=== PATIENT | male | born 1945 | race Caucasian/White ===

== ENCOUNTER 2017-03-05 10:00 | Inpatient (IN) | payer MEDICARE, OTHER ==
[2017-04-30] MEDS ORDERED: ceFAZolin 2 GM in Premix Bag 1 BAG IV SCH ×2 (06:00→17:00)
[2017-04-30] MEDS ORDERED: Acetaminophen 500 MG Tab PO SCH (06:00)
[2017-04-30] MEDS ORDERED: Scopolamine 1.5 MG Transdermal Patch TRDERM SCH (06:00)
[2017-04-30] MEDS ORDERED: oxyCODONE ER 20 MG TAB.ER PO SCH (06:00)
[2017-04-30] MEDS ORDERED: Famotidine 20 MG/2 ML SDV IVPUSH SCH (06:00)
[2017-04-30] MEDS ORDERED: Ropivacaine 49.25 ML, Ketorolac 30 MG, EPINEPHrine 0.5 MG, cloNIDine 80 MCG in Sodium C... INJECT ONE (06:00)
[2017-04-30] MEDS ORDERED: Ketorolac 30 MG/ML SDV IVPUSH SCH (06:00)
[2017-04-30] MEDS: Lactated Ringers 1,000 ML IV SCH ×2 (07:08→15:27)
[2017-04-30] MEDS ORDERED: Midazolam 1 MG/ML 2 ML SDV ONE (07:23)
[2017-04-30] MEDS ORDERED: Propofol 200 MG/20 ML SDV ONE (07:23)
[2017-04-30] MEDS ORDERED: Ondansetron 4 MG/2 ML SDV ONE (07:23)
[2017-04-30] MEDS ORDERED: fentaNYL 100 MCG/2 ML SDV ONE (07:23)
[2017-04-30] MEDS ORDERED: Lidocaine 2% 5 ML SDV ONE (07:23)
[2017-04-30] MEDS ORDERED: ePHEDrine 50 MG/ML SDV ONE (07:24)
--- NOTE | 2017-04-30 08:00 | PCM.PREANE ---
Preanesthetic Assessment - Anesthesia/Transfusion/Family Hx Anesthesia History: Prior Anesthesia Without Reaction Transfusion History: No Prior Transfusion(s) - Review of Systems General: Other (obesity/gastric bypass 2007) Pulmonary: Other (former smoker, COPD) Cardiovascular: No Symptoms, Other (cath essentially normal function , EF50-60%) Gastrointestinal: Other (s/p bypass, GERD on meds daily) Neurological: Gait Disturbance (due to knee) Other: Reports: Diabetes (on oral agents) - Physical Assessment NPO Status Date: 04/29/17 NPO Status Time: 22:00 (took meds here PO) Temperature: 97.2 F Vital Signs: Last Vital Signs Temp 97.2 F 04/30/17 07:11 Pulse Resp BP Pulse Ox Height: 5 ft 8.25 in Weight: 332 lb ASA Class: 3 Mental Status: Alert & Oriented x3 Airway Class: Mallampati = 3 Dentition: Reports: Normal Dentition Thyro-Mental Finger Breadths: 3 Mouth Opening Finger Breadths: 3 (narrow mouth, short full neck) ROM/Head Extension: Limited/Partial Lungs: Clear to Auscultation, Normal Respiratory Effort Cardiovascular: Regular Rate, Regular Rhythm, No Murmurs - Allergies Allergies/Adverse Reactions: Allergies Allergy/AdvReac Type Severity Reaction Status Date / Time No Known Allergies Allergy Verified 10/24/13 11:33 - Blood Blood Available: Yes Product(s) Available: PRBC (T and S) - Anesthesia Plan Pre-Op Medication Ordered: Other (per surgeon protocol) Beta Nihkil: Metoprolol (AM dose) - Acknowledgements Anesthesia Type Planned: General Anesthesia (OET porbably best), Spinal Pt an Appropriate Candidate for the Planned Anesthesia: Yes Alternatives and Risks of Anesthesia Discussed w Pt/Guardian: Yes Pt/Guardian Understands and Agrees with Anesthesia Plan: Yes PreAnesthesia Questionnaire HEENT History: Reports: Allergic Rhinitis, Other (See Below) Other HEENT History: wears glasses, maria c hearing aids Cardiovascular History: Reports: High Cholesterol, Hypertension Respiratory History: Reports: Sleep Apnea Other Respiratory History: uses CPAP Gastrointestinal History: Reports: GERD Genitourinary History: Reports: BPH Musculoskeletal History: Reports: Arthritis Neurological History: Reports: Parkinson's Endocrine/Metabolic History: Reports: Diabetes, Type II, Obesity/BMI 30+ - Past Surgical History Head Surgeries/Procedures: Reports: None HEENT Surgical History: Reports: Cataract Surgery Cardiovascular Surgical History: Reports: Other (See Below) Other Cardiovascular Surgeries/Procedures: angiogram (no stents) GI Surgical History: Reports: Bariatric Procedure, Colonoscopy Other GI Surgeries/Procedures: lap band surgery, removal of lap band Neurological Surgical History: Reports: Lumbar Spine Other Neurological Surgeries/Procedures: hx lower back surgery Musculoskeletal Surgical History: Reports: Knee Replacement Other Musculoskeletal Surgeries/Procedures:: hx left TKA - SUBSTANCE USE Smoking Status *Q: Former Smoker Tobacco Use Within Last Twelve Months: No Second Hand Smoke Exposure: Yes Days Per Week of Alcohol Use: 0 Number of Drinks Per Day: 0 Total Drinks Per Week: 0 Recreational Drug Use History: No - HOME MEDS Home Medications: Home Meds Telmisartan 40 mg PO ACBRK 10/24/13 [History] Finasteride 5 mg PO DAILY 04/26/17 [History] Fluticasone Propionate [Flonase Allergy Relief] 1 spray NASBOTH ASDIRECTED PRN 04/26/17 [History] Furosemide 20 mg PO BID 04/26/17 [History] Glimepiride [Amaryl] 4 mg PO DAILY 04/26/17 [History] Insulin Glarg,Human.Rec.Analog [LantUS Solostar] 50 units SUBCUT BEDTIME [History] Lansoprazole [Prevacid] 30 mg PO DAILY PRN 04/26/17 [History] Potassium Chloride 10 meq PO DAILY 04/26/17 [History] Pramipexole Di-HCl [Pramipexole Dihydrochloride] 0.25 mg PO ASDIRECTED 04/26/17 [History] Tamsulosin HCl [Flomax] 0.4 mg PO DAILY 04/26/17 [History] metFORMIN HCl [Metformin HCl] 2 tab PO ACBREAKFAST 04/26/17 [History] metFORMIN HCl [Metformin HCl] 3 tab PO BEDTIME 04/26/17 [History] - CURRENT (IN HOUSE) MEDS Current Meds: Current Medications Acetaminophen (Tylenol Extra Strength) 1,000 mg PO ONARRIVE LIBIA Last Admin: 04/30/17 07:11 Dose: 1,000 mg Famotidine (Pepcid) 40 mg IVPUSH ONARRIVE LIBIA Last Admin: 04/30/17 07:09 Dose: 40 mg Cefazolin Sodium/Dextrose 2 gm (/ Premix) 50 mls @ 100 mls/hr IV ONCALL LIBIA Lactated Ringer's (Ringers, Lactated) 1,000 mls @ 100 mls/hr IV ASDIRECTED LIBIA Last Admin: 04/30/17 07:08 Dose: 100 mls/hr Ketorolac Tromethamine (Toradol) 30 mg IVPUSH ONARRIVE LIBIA Last Admin: 04/30/17 07:10 Dose: 30 mg Oxycodone HCl (Oxycontin) 20 mg PO ONARRIVE LIBIA Last Admin: 04/30/17 07:11 Dose: 20 mg Scopolamine (Transderm-Scop) 1.5 mg TRDERM ONARRIVE [facility] Last Admin: 04/30/17 07:11 Dose: 1.5 mg Tranexamic Acid (Cyklokapron) 4,000 mg IV SEECOMMENT [facility] Discontinued Medications Ephedrine Sulfate (Ephedrine Sulfate) Confirm Administered Dose 50 mg .ROUTE .STK-MED ONE Stop: 04/30/17 07:25 Fentanyl (Sublimaze) Confirm Administered Dose 200 mcg .ROUTE .STK-MED ONE Stop: 04/30/17 07:24 Ropivacaine 49.25 ml/Ketorolac Tromethamine 30 mg/Epinephrine HCl 0.5 mg/ Clonidine HCl 80 mcg/ Sodium Chloride 100 mls @ 50 mls/min INJECT ONETIME ONE Stop: 04/30/17 06:01 Lidocaine (Xylocaine-Mpf 2%) Confirm Administered Dose 10 ml .ROUTE .STK-MED ONE Stop: 04/30/17 07:24 Midazolam HCl (Versed 1 Mg/Ml) Confirm Administered Dose 2 mg .ROUTE .STK-MED ONE Stop: 04/30/17 07:24 Ondansetron HCl (Zofran) Confirm Administered Dose 4 mg .ROUTE .STK-MED ONE Stop: 04/30/17 07:24 Propofol (Diprivan 20 Ml) Confirm Administered Dose 400 mg .ROUTE .STK-MED ONE Stop: 04/30/17 07:24 Tranexamic Acid (Cyklokapron) Confirm Administered Dose 4,000 mg .ROUTE .STK- MED ONE Stop: 04/30/17 07:16
[2017-04-30] MEDS ORDERED: fentaNYL 100 MCG/2 ML SDV IVPUSH PRN (08:59)
[2017-04-30] MEDS ORDERED: Morphine 10 MG/ML Syringe IVPUSH PRN (09:35)
[2017-04-30] MEDS ORDERED: Ondansetron 4 MG/2 ML SDV IV PRN (09:35)
[2017-04-30] MEDS ORDERED: Aluminum Hydroxide/Magnesium Hydroxide/Simethicone Susp 30 ML Cup PO PRN (09:35)
[2017-04-30] MEDS ORDERED: Bisacodyl 10 MG Supp RECTAL PRN (09:35)
[2017-04-30] MEDS ORDERED: diphenhydrAMINE 25 MG Cap PO PRN (09:35)
--- NOTE | 2017-04-30 09:52 | PCM.OPNOTE ---
- General Post-Op/Procedure Note Date of Surgery/Procedure: 04/30/17 Operative Procedure(s): R TKA Post-Op Diagnosis: DJD R knee Anesthesia Technique: General ET Tube, Spinal Primary Surgeon: Vane Benjamin Wastewater Manager: Roosevelt Simmons Wastewater Manager: Aure Pearson EBAiram in mLs: 50 Condition: Good Free Text/Narrative:: tt=44 min #[id number] Intake & Output 04/29/17 04/30/17 04/30/17 22:59 06:59 14:59 Output Total 50 Balance -50
[2017-04-30] MEDS ORDERED: Fluticasone Propionate Nasal Spray 16 GM Bottle NASBOTH PRN (10:46)
[2017-04-30 11:40] LABS: CHLORIDE,CL 105 mmol/L (98-110); SODIUM,NA 138 mmol/L (136-146)
--- NOTE | 2017-04-30 11:42 | PCM.POSTAN ---
POST ANESTHESIA ASSESSMENT - MENTAL STATUS Mental Status: Alert, Oriented Free Text/Narrative:: Sleepy but stable with Oxygen via mask and SaO2 at 97%. - RESPIRATORY Respiratory Status: Respiratory Rate WNL, Airway Patent, O2 Saturation Stable - CARDIOVASCULAR CV Status: Pulse Rate WNL, Blood Pressure Stable - GASTROINTESTINAL GI Status: No Symptoms - POST OP HYDRATION Hydration Status: Adequate & Stable
--- NOTE | 2017-04-30 11:59 | PCM.CONS ---
H&P History of Present Illness - General Date of Service: 04/30/17 Admit Problem/Dx: Admission Diagnosis/Problem Admission Diagnosis/Problem Replacement of total knee joint Source of Information: Patient History Limitations: Reports: No Limitations - History of Present Illness Initial Comments - Free Text/Narative: This 71 year old male with pmh of HTN, DM type 2, CAD, obesity, hx of cardiomyopathy presented to for R TKA today with Dr. Benjamin. Hospitalist service consulted for medical management of comorbidities. He has arrived to floor from PACU. He is alert and oriented feeling ok currently. Denies any pain, no chest pain, SOB or abdominal pain. Starting to get some feeling to R lower limb and toes. at bedside. He had stress test and ECHo 03/2018 prior to cardiac clearance for surgery, coronary angiogram revealed non-occlusive CAD and ECHO revealed EF 55-60% with mild enlarged aorta. - Related Data Allergies/Adverse Reactions: Allergies Allergy/AdvReac Type Severity Reaction Status Date / Time No Known Allergies Allergy Verified 10/24/13 11:33 Home Medications: Home Meds Telmisartan 40 mg PO ACBRK 10/24/13 [History] Finasteride 5 mg PO DAILY 04/26/17 [History] Fluticasone Propionate [Flonase Allergy Relief] 1 spray NASBOTH ASDIRECTED PRN 04/26/17 [History] Furosemide 20 mg PO BID 04/26/17 [History] Glimepiride [Amaryl] 4 mg PO DAILY 04/26/17 [History] Insulin Glarg,Human.Rec.Analog [LantUS Solostar] 50 units SUBCUT BEDTIME [History] Lansoprazole [Prevacid] 30 mg PO DAILY PRN 04/26/17 [History] Potassium Chloride 10 meq PO DAILY 04/26/17 [History] Pramipexole Di-HCl [Pramipexole Dihydrochloride] 0.25 mg PO QAM 04/26/17 [ History] Tamsulosin HCl [Flomax] 0.4 mg PO DAILY 04/26/17 [History] Metoprolol Tartrate [Metoprolol Tartrate] 12.5 mg PO BID 04/30/17 [History] Pramipexole [Mirapex] 0.5 mg PO BEDTIME 04/30/17 [History] metFORMIN HCl [Metformin HCl ER] 1,000 mg PO QAM 04/30/17 [History] metFORMIN HCl [Metformin HCl ER] 1,500 mg PO BEDTIME 04/30/17 [History] Past Medical History HEENT History: Reports: Allergic Rhinitis, Other (See Below) Other HEENT History: wears glasses, maria c hearing aids Cardiovascular History: Reports: CAD (non-occlusive), Cardiomyopathy (hx 2008 EF 42%), High Cholesterol, Hypertension. Denies: Afib, Blood Clots/VTE/DVT, OK Respiratory History: Reports: Sleep Apnea Other Respiratory History: uses CPAP Gastrointestinal History: Reports: GERD Genitourinary History: Reports: BPH Musculoskeletal History: Reports: Arthritis Neurological History: Reports: Parkinson's Endocrine/Metabolic History: Reports: Diabetes, Type II, Obesity/BMI 30+ - Past Surgical History Head Surgeries/Procedures: Reports: None HEENT Surgical History: Reports: Cataract Surgery Cardiovascular Surgical History: Reports: Other (See Below) Other Cardiovascular Surgeries/Procedures: angiogram (no stents) GI Surgical History: Reports: Bariatric Procedure, Colonoscopy Other GI Surgeries/Procedures: lap band surgery, removal of lap band Neurological Surgical History: Reports: Lumbar Spine Other Neurological Surgeries/Procedures: hx lower back surgery Musculoskeletal Surgical History: Reports: Knee Replacement Other Musculoskeletal Surgeries/Procedures:: hx left TKA Social & Family History - Tobacco Use Smoking Status *Q: Former Smoker Used Tobacco, but Quit: Yes Month Tobacco Last Used: quit smoking over 8 yrs ago Second Hand Smoke Exposure: Yes - Alcohol Use Days Per Week of Alcohol Use: 0 Number of Drinks Per Day: 0 Total Drinks Per Week: 0 - Recreational Drug Use Recreational Drug Use: No Drug Use in Last 12 Months: No - Living Situation & Occupation Living situation: Reports: Occupation: Retired H&P Review of Systems - Review of Systems: Review Of Systems: See Below General: Reports: No Symptoms. Denies: Fever, Chills HEENT: Reports: No Symptoms. Denies: Headaches, Hearing Changes, Sinus Congestion, Sore Throat Pulmonary: Reports: Wheezing. Denies: Shortness of Breath, Cough, Sputum Cardiovascular: Reports: No Symptoms. Denies: Chest Pain, Palpitations, Edema Gastrointestinal: Reports: No Symptoms. Denies: Abdominal Pain, Black Stool, Bloody Stool, Nausea, Vomiting Genitourinary: Reports: No Symptoms. Denies: Dysuria, Frequency, Burning, Pain Musculoskeletal: Reports: No Symptoms Skin: Reports: No Symptoms Neurological: Reports: No Symptoms Hematologic/Lymphatic: Reports: No Symptoms Immunologic: Reports: No Symptoms Exam - Exam Exam: See Below - Vital Signs Vital Signs: Last Vital Signs Temp 97.2 F 04/30/17 08:00 Pulse 77 04/30/17 10:50 Resp 16 04/30/17 10:50 BP 131/72 04/30/17 10:50 Pulse Ox 94 L 04/30/17 10:50 Weight: 150.593 kg - Exam Quality Assessment: Supplemental Oxygen, Urinary Catheter, DVT Prophylaxis General: Alert, Oriented, Cooperative HEENT: Conjunctiva Clear, Mucosa Moist & [place], Nares Patent, Pupils Equal, Pupils Reactive Neck: Supple Lungs: Normal Respiratory Effort, Wheezing (exp wheeze heard throughout.) Cardiovascular: Regular Rate, Regular Rhythm, Normal S1, Normal S2 Extremities: Normal Inspection, Normal Range of Motion, Non-Tender, No Pedal Edema, Normal Capillary Refill Skin: Incision (R TKA dressing C/D/I) Neurological: Cranial Nerves Intact Neuro Extensive - Mental Status: Alert, Oriented x3, Normal Mood/Affect - Patient Data Lab Results Last 24 hrs: Laboratory Results - last 24 hr 04/30/17 04/30/17 04/30/17 Range/Units 07:07 11:05 11:05 WBC 11.09 H (4.0-11.0) K/uL RBC 4.22 L (4.50-5.90) M/uL Hgb 12.6 L (13.0-17.0) g/dL Hct 38.0 (38.0-50.0) % MCV 90.0 (80.0-98.0) fL MCH 29.9 (27.0-32.0) pg MCHC 33.2 (31.0-37.0) g/dL RDW Std Deviation 45.4 (28.0-62.0) fl RDW Coeff of Maria Dolores 14 (11.0-15.0) % Plt Count 248 (150-400) K/uL MPV 9.30 (7.40-12.00) fL Neut % (Auto) 73.2 (48.0-80.0) % Lymph % (Auto) 20.0 (16.0-40.0) % [place] % (Auto) 5.5 (0.0-15.0) % Eos % (Auto) 0.9 (0.0-7.0) % Baso % (Auto) 0.4 (0.0-1.5) % Neut # (Auto) 8.1 H (1.4-5.7) K/uL Lymph # (Auto) 2.2 (0.6-2.4) K/uL [place] # (Auto) 0.6 (0.0-0.8) K/uL Eos # (Auto) 0.1 (0.0-0.7) K/uL Baso # (Auto) 0.0 (0.0-0.1) K/uL Nucleated RBC % 0.0 /100WBC Nucleated RBCs # 0 K/uL Sodium 138 (136-146) mmol/L Potassium 3.9 (3.5-5.1) mmol/L Chloride 105 (98-110) mmol/L Carbon Dioxide 23 (21-31) mmol/L BUN 18 (6.0-23.0) mg/dL Creatinine 0.9 (0.6-1.5) mg/dL Est Cr Clr Drug Dosing 72.38 mL/min Estimated GFR (MDRD) > 60.0 ml/min Glucose 145 H (60-110) mg/dL Calcium 8.4 L (8.8-10.8) mg/dL Total Bilirubin 0.2 (0.1-1.5) mg/dL AST 15 (5-40) IU/L ALT 22 (8-54) IU/L Alkaline Phosphatase 93 (40-150) Total Protein 6.1 (6.0-8.0) g/dL Albumin 3.4 (3.4-4.8) g/dL Globulin 2.7 (2.0-3.5) g/dL Albumin/Globulin Ratio 1.3 (1.3-2.8) Blood Type B POSITIVE Antibody Screen NEGATIVE Result Diagrams: 04/30/17 11:05 04/30/17 11:05 Consult PN Assessment/Plan Procedures: Procedures CARDIOVASCULAR STRESS TEST (02/21/17) COLONOSCOPY AND BIOPSY (10/27/13) COLONOSCOPY W/LESION REMOVAL (10/27/13) HT MUSCLE IMAGE SPECT SING (02/26/17) MRI JNT OF LWR EXTRE W/O DYE (01/23/17) OFFICE/OUTPATIENT VISIT EST (11/11/13) TTE W/DOPPLER COMPLETE (02/27/17) X-RAY EXAM KNEE 4 OR MORE (01/18/17) (1) S/P total knee replacement SNOMED Code(s): 3136286711049, 6905942449330 Code(s): Z96.659 - PRESENCE OF UNSPECIFIED ARTIFICIAL KNEE JOINT Current Visit: Yes Qualifiers: Laterality: right Qualified Code(s): Z96.651 - Presence of right artificial knee joint (2) DM type 2 (diabetes mellitus, type 2) SNOMED Code(s): 10301426 Code(s): E11.9 - TYPE 2 DIABETES MELLITUS WITHOUT COMPLICATIONS Current Visit: Yes Qualifiers: Diabetes mellitus complication status: without complication Diabetes mellitus predatory animal exterminator insulin use: with predatory animal exterminator use Qualified Code(s): E11.9 - Type 2 diabetes mellitus without complications; Z79.4 - alf (current) use of insulin; Z79.4 - alf (current) use of insulin; Z79.4 - alf ( current) use of insulin; Z79.4 - alf (current) use of insulin (3) CAD (coronary artery disease) SNOMED Code(s): 22135925 Code(s): I25.10 - ATHSCL HEART DISEASE OF [place] CORONARY ARTERY W/O ANG PCTRS Current Visit: Yes Qualifiers: Coronary Disease-Associated Artery/Lesion type: [place] artery [place] vs. transplanted heart: [place] heart Associated angina: without angina Qualified Code(s): I25.10 - Atherosclerotic heart disease of [place] coronary artery without angina pectoris (4) HTN (hypertension) SNOMED Code(s): 82519063 Code(s): I10 - ESSENTIAL (PRIMARY) HYPERTENSION Current Visit: Yes Qualifiers: Hypertension type: essential hypertension Qualified Code(s): I10 - Essential (primary) hypertension (5) Obesity SNOMED Code(s): 929166326 Code(s): E66.9 - OBESITY, UNSPECIFIED Current Visit: Yes Qualifiers: Obesity type: due to excess calories Obesity classification: adult class 3 (BMI >= 40) Body mass index: BMI 50.0-59.9 (6) PRANAY on CPAP SNOMED Code(s): 20563744 Code(s): G47.33 - OBSTRUCTIVE SLEEP APNEA (ADULT) (PEDIATRIC); Z99.89 - DEPENDENCE ON OTHER ENABLING MACHINES AND DEVICES Current Visit: Yes (7) Hx of cardiomyopathy SNOMED Code(s): 864466100682879 Code(s): Z86.79 - PERSONAL HISTORY OF OTHER DISEASES OF THE CIRCULATORY SYSTEM Current Visit: Yes Problem List Initiated/Reviewed/Updated: Yes My Orders Last 24 Hours: My Active Orders 04/30/17 10:46 Fluticasone Propionate [Flonase] 0 gm NASBOTH ASDIRECTED PRN 04/30/17 11:39 Blood Glucose Check, Bedside [RC] TIDAC 04/30/17 17:00 Insulin Aspart [NovoLOG] See Protocol SUBCUT TIDAC 04/30/17 21:00 Furosemide [Lasix] 20 mg PO BID Insulin Glarg,Human.Rec.Analog [LantUS Solostar] 50 units SUBCUT BEDTIME Metoprolol Tartrate [Lopressor] 12.5 mg PO BID Pramipexole [Mirapex] 0.5 mg PO BEDTIME 05/01/17 07:30 Telmisartan [Micardis] 40 mg PO ACBRK 05/01/17 09:00 Finasteride [Proscar] 5 mg PO DAILY Potassium Chloride [Klor-Con 10] 10 meq PO DAILY Pramipexole [Mirapex] 0.25 mg PO QAM Tamsulosin [Flomax] 0.4 mg PO DAILY Plan: This 71 year old male admitted for R TKA with Dr. Benjamin. Hospitalist service consulted for medical management 1. S/P R TKA: per Dr Benjamin. Will stop Celebrex and Toradol due to CAD and cardiac risk as well as DM. 2. HTN: Continue Telmisartan and Furosemide. Monitor BMPs in am. 3. CAD: Continue ASA, now on ASA BID for VTE prophylaxis. Again, stopping Celebrex and Toradol due to CAD. 4. DM type 2: Will hold PO home medications, Metformin and Glimepiride, while hospitalized. Novolog SSI with meals and continue Lantus at bedtime 5. Exp wheeze noted: Dr. Head recommended PFT as outpatient and started Flovent, will continue this and place PRN nebulizers. 6. BPH: Continue Finasteride VTE prophylaxis: Do recommended with Ortho deems appropriate. On ASA 325 mg BID now.
[2017-04-30] MEDS ORDERED: Ketorolac 15 MG/ML SDV IVPUSH SCH (13:00)
[2017-04-30] MEDS: Acetaminophen 1,000 MG in Premix Bag 1 BAG IV SCH ×2 (13:13→18:01)
[2017-04-30] MEDS: oxyCODONE 5 MG Tab PO PRN ×2 (14:27→22:02)
--- NOTE | 2017-04-30 15:15 | OR ---
SURGEON: Vane Benjamin MD DATE OF PROCEDURE: 04/30/2017 PREOPERATIVE DIAGNOSIS: Degenerative joint disease, right knee, tricompartmental. POSTOPERATIVE DIAGNOSIS: Degenerative joint disease, right knee, tricompartmental. PROCEDURE: Right total knee arthroplasty using patient specific instrumentation. TOUR COORDINATOR: Roosevelt Simmons PA-C and Aure Pearson PA-C. ANESTHESIA: Spinal and general. ESTIMATED BLOOD LOSS: 50 mL. TOURNIQUET TIME: 44 minutes. COMPLICATIONS: None. DVT PROPHYLAXIS: PAS boot and JORGE hose to the nonoperative leg. IMPLANTS USED: [employer] femoral component size G (LPS), tibial component size 7, 10 mm all polyethylene articular surface, and 38 mm all-polyethylene patella. INTRAOPERATIVE FINDINGS: Showed severe tricompartmental degenerative changes with osteophyte formation. 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 No significant synovitis was noted. BRIEF HISTORY: Anuel is a 71-year-old male who has had complaint of progressive right knee pain. He has previously undergone a left total knee arthroplasty and has done well. Due to his lack of response to conservative treatment on the right, I did recommend surgical intervention. The risks and goals of procedure were discussed with the patient and were documented preoperatively. He agreed to proceed. DESCRIPTION OF PROCEDURE: The patient was properly identified and brought to the operating room. The patient was transferred from the operating room cart and placed on the operating room table. Spinal anesthesia was administered by the anesthesia team. After adequate sedation was achieved, a well-padded tourniquet was applied to the lower extremity. A Wiseman catheter was then placed. The lower extremity was then prepped in standard fashion using ChloraPrep solution. It was then sterilely draped. A time-out was performed to ensure correct site and procedure. Preoperative antibiotics were given along with one gram of tranexamic acid IV. The surgical site had been marked preoperatively. An Esmarch was used to exsanguinate the lower extremity and the tourniquet was inflated. An incision was made centered over the anterior aspect of the knee. The subcutaneous tissues were dissected down to the level of the fascia. A medial parapatellar approach was made. A partial medial release was also performed. The knee was then brought into extension and a portion of the infrapatellar fat pad was excised. The knee was then brought into flexion. The femoral patient specific cutting block was placed. This fit anatomically. The pins were then placed. The 0 degree distal femoral cutting guide was placed over the distal femur pins. The femur was then resected using an oscillating saw. The pins were then removed and were placed into the previously placed distal drill holes in the femoral condyles. Both Dar's and the epicondylar axis were marked with electric cautery. The cutting block was then placed. This was pinned into position in a slightly lateral and externally rotated position. This was then secured. The resection guide was used to check to make sure that the anterior femoral cortex would not be notched. The anterior condylar cut was then made. No notching of the femur was noted. This was followed by the posterior condylar, posterior chamfer, and anterior chamfer cuts. The narrow reciprocating saw was then used to cut the base of the trochlear recess and score the edges. The finishing guide was then removed and the trochlear recess cuts and remaining bone cuts were finished. The notch cutting block was then placed into position and the notch cut was made without difficulty using the reciprocating saw. This was then removed. The notch block that had been cut along with a portion of the cruciate ligaments were also resected. We then turned our attention to the tibia. The posterior cruciate ligament retractor was used to bring the tibial surface anteriorly. The patient specific tibial block was then placed. This fit anatomically. It was pinned into position. The block was then removed. The 0 degree proximal tibia cutting guide was then placed over the guide pin. This was secured with a Aurelio clamp. The resection depth was checked using the resection guide. A proximal tibia cut was then made using an oscillating saw. Care was taken to protect the patellar tendon. The proximal tibia bone was then removed. The remainder of the medial and lateral meniscus were also excised. Care was taken to protect the popliteus tendon. The proximal tibia was then sized. The remainder of the osteophytes along the proximal tibia were also resected. The distal femur was elevated to expose the posterior knee. The posterior capsule was stripped off the distal femur using a curved osteotome. The posterior osteophytes were also excised. The posterior capsule, along with the medial and lateral gutters, were then injected with the standard, preoperatively prepared, mixture consisting of clonidine, epinephrine, ropivacaine, Toradol, and saline, unless any allergies were noted preoperatively. The femoral trial was then placed. This was followed by the tibial component with a size 10 trial polyethylene. The knee was brought into full extension. Stability to varus and valgus stress was checked in extension and in flexion. There appeared to be good range of motion and stability. The knee was then brought into full extension. The patella was everted. The patella was resected to a thickness of 15 millimeters. It was then sized. Once the appropriate size was determined, the patella was prepared by placing the patella button in a slightly superior and medial position. The patella button trial was then placed and the knee was again taken through a range of motion. There was excellent patellar tracking using the no-touch technique. Alignment was checked with a drop debbie. The trial components were then removed. The knee was brought into full flexion and the tibia was prepared in a standard fashion placing the tibial plate in slight external rotation with the center of the prosthesis lined up with the medial aspect of the tibial tubercle. The wound was then copiously irrigated with Pulsavac solution to remove any bony debris. The bone ends were then suctioned dry. Cement was prepared in the usual fashion on the back table. The cement was then placed onto the proximal tibia and the tibial component was placed without difficulty. This was malleted into position. Excess cement was cleared. The femoral component was cemented in a similar manner. A trial polyethylene was then placed and the knee was brought into full extension. An axial load was applied. The patella button was then cemented into place and a patella clamp was placed to hold pressure. The cement was allowed to cure. The wound was again copiously irrigated with saline solution using a Pulsavac bisque brusher. Following this 1 g of tranexamic acid was applied to the wound topically. After the cement had adequately hardened, the patella clamp was released. The knee was again taken through a range of motion. It was determined at this time the correct thickness of polyethylene. The trial polyethylene insert was then removed. The knee was brought into flexion and the tibial tray was suctioned dry. Any excess cement was cleared from the tibial and femoral components. The knee was then brought into approximately 45 degrees of flexion. The tourniquet was deflated. No excess bleeding was noted from the posterior aspect of the knee. An additional gram of tranexamic acid was given IV. The previously determined sized polyethylene insert was then placed and locked into position without difficulty. The knee was again taken through a range of motion with no change in stability, either in flexion or extension. The fascia layer was closed with No. 1 Vicryl. The subcutaneous tissue was closed with 2-0 Vicryl and the skin was closed with a betsy. Xeroform gauze was placed over the wound and a bulky dressing was applied. The patient was then awakened from the anesthetic and transferred back to the operating cart. The patient was brought to recovery room in stable condition. All needle and sponge counts were correct. MORALES / JIGNESH /[id number]
--- NOTE | 2017-04-30 15:29 | CR ---
EXAMINATION: Right knee HISTORY: Arthroplasty COMPARISON: 01/18/2017 TECHNIQUE: AP and lateral views FINDINGS/IMPRESSION: Bilateral total knee hardware demonstrated in good position and alignment. Opera tive soft tissue changes are noted.
[2017-04-30] MEDS: ceFAZolin 2 GM in Premix Bag 1 BAG IV SCH ×2 (16:39→22:01)
[2017-04-30] MEDS: Insulin Aspart 100 Units/ML 3 ML Pen SUBCUT SCH (17:01)
[2017-04-30] MEDS: Furosemide 20 MG Tab PO SCH (20:24)
[2017-04-30] MEDS: Pramipexole 0.25 MG Tab PO SCH (20:24)
[2017-04-30] MEDS: oxyCODONE ER 20 MG TAB.ER PO SCH (20:25)
[2017-04-30] MEDS: Insulin Glargine,Human Rec. Analog 100 Units/ML 3 ML Pen SUBCUT SCH (20:31)
[2017-04-30] MEDS: Docusate Sodium 100 MG Cap PO SCH (20:32)
[2017-04-30] MEDS ORDERED: Metoprolol Tartrate 25 MG Tab PO SCH (21:00)
[2017-05-01] MEDS: Acetaminophen 500 MG Tab PO SCH ×4 (01:36→20:03)
[2017-05-01] MEDS: Lactated Ringers 1,000 ML IV SCH (03:49)
[2017-05-01] MEDS: oxyCODONE 5 MG Tab PO PRN ×3 (03:49→14:15)
[2017-05-01] MEDS: ceFAZolin 2 GM in Premix Bag 1 BAG IV SCH (05:53)
[2017-05-01 06:01] LABS: CHLORIDE,CL 102 mmol/L (98-110); SODIUM,NA 133 mmol/L (136-146)
[2017-05-01] MEDS: Insulin Aspart 100 Units/ML 3 ML Pen SUBCUT SCH ×3 (06:55→17:34)
--- NOTE | 2017-05-01 07:10 | PCM48HPAN ---
Post Anesthesia Note - EVALUATION WITHIN 48HRS OF ANESTHETIC Vital Signs in Normal Range: Yes Patient Participated in Evaluation: Yes Respiratory Function Stable: Yes Airway Patent: Yes Cardiovascular Function Stable: Yes Hydration Status Stable: Yes Pain Control Satisfactory: Yes Nausea and Vomiting Control Satisfactory: Yes Mental Status Recovered: Yes - COMMENTS/OBSERVATIONS Free Text/Narrative:: Hypomagnesia
--- NOTE | 2017-05-01 08:01 | PCM.SURGPN ---
<Roosevelt Simmons - Last Filed: 05/01/17 08:02> - General Info Date of Service: 05/01/17 Date of Surgery/Procedure: 04/30/17 POD#: 1 Functional Status: Reports: Pain Controlled, Tolerating Diet, Ambulating - Review of Systems General: Reports: No Symptoms Pulmonary: Reports: No Symptoms Cardiovascular: Reports: No Symptoms Gastrointestinal: Reports: No Symptoms Genitourinary: Reports: No Symptoms Musculoskeletal: Reports: Leg Pain, Joint Pain, Joint Swelling Neurological: Reports: No Symptoms Psychiatric: Reports: No Symptoms - Patient Data Vitals - Most Recent: Last Vital Signs Temp 36.6 C 05/01/17 04:34 Pulse 73 05/01/17 04:34 Resp 16 05/01/17 04:34 BP 134/78 05/01/17 06:43 Pulse Ox 91 L 05/01/17 04:34 Weight - Most Recent: 150.593 kg I&O - Last 24 Hours: Intake & Output 04/30/17 05/01/17 05/01/17 22:59 06:59 14:59 Intake Total 685 1200 Output Total 150 750 Balance 535 450 Lab Results Last 24 Hrs: Laboratory Results - last 24 hr 04/30/17 04/30/17 04/30/17 Range/Units 10:02 11:05 11:05 WBC 11.09 H (4.0-11.0) K/uL RBC 4.22 L (4.50-5.90) M/uL Hgb 12.6 L (13.0-17.0) g/dL Hct 38.0 (38.0-50.0) % MCV 90.0 (80.0-98.0) fL MCH 29.9 (27.0-32.0) pg MCHC 33.2 (31.0-37.0) g/dL RDW Std Deviation 45.4 (28.0-62.0) fl RDW Coeff of Maria Dolores 14 (11.0-15.0) % Plt Count 248 (150-400) K/uL MPV 9.30 (7.40-12.00) fL Neut % (Auto) 73.2 (48.0-80.0) % Lymph % (Auto) 20.0 (16.0-40.0) % Foster % (Auto) 5.5 (0.0-15.0) % Eos % (Auto) 0.9 (0.0-7.0) % Baso % (Auto) 0.4 (0.0-1.5) % Neut # (Auto) 8.1 H (1.4-5.7) K/uL Lymph # (Auto) 2.2 (0.6-2.4) K/uL Foster # (Auto) 0.6 (0.0-0.8) K/uL Eos # (Auto) 0.1 (0.0-0.7) K/uL Baso # (Auto) 0.0 (0.0-0.1) K/uL Nucleated RBC % 0.0 /100WBC Nucleated RBCs # 0 K/uL Sodium 138 (136-146) mmol/L Potassium 3.9 (3.5-5.1) mmol/L Chloride 105 (98-110) mmol/L Carbon Dioxide 23 (21-31) mmol/L BUN 18 (6.0-23.0) mg/dL Creatinine 0.9 (0.6-1.5) mg/dL Est Cr Clr Drug Dosing 72.38 mL/min Estimated GFR (MDRD) > 60.0 ml/min Glucose 145 H (60-110) mg/dL POC Glucose 129 H (60-110) mg/dL Calcium 8.4 L (8.8-10.8) mg/dL Magnesium (1.5-2.3) mEq/L Total Bilirubin 0.2 (0.1-1.5) mg/dL AST 15 (5-40) IU/L ALT 22 (8-54) IU/L Alkaline Phosphatase 93 (40-150) Total Protein 6.1 (6.0-8.0) g/dL Albumin 3.4 (3.4-4.8) g/dL Globulin 2.7 (2.0-3.5) g/dL Albumin/Globulin Ratio 1.3 (1.3-2.8) 04/30/17 04/30/17 04/30/17 Range/Units 12:09 16:15 20:28 WBC (4.0-11.0) K/uL RBC (4.50-5.90) M/uL Hgb (13.0-17.0) g/dL Hct (38.0-50.0) % MCV (80.0-98.0) fL MCH (27.0-32.0) pg MCHC (31.0-37.0) g/dL RDW Std Deviation (28.0-62.0) fl RDW Coeff of Maria Dolores (11.0-15.0) % Plt Count (150-400) K/uL MPV (7.40-12.00) fL Neut % (Auto) (48.0-80.0) % Lymph % (Auto) (16.0-40.0) % Foster % (Auto) (0.0-15.0) % Eos % (Auto) (0.0-7.0) % Baso % (Auto) (0.0-1.5) % Neut # (Auto) (1.4-5.7) K/uL Lymph # (Auto) (0.6-2.4) K/uL Foster # (Auto) (0.0-0.8) K/uL Eos # (Auto) (0.0-0.7) K/uL Baso # (Auto) (0.0-0.1) K/uL Nucleated RBC % /100WBC Nucleated RBCs # K/uL Sodium (136-146) mmol/L Potassium (3.5-5.1) mmol/L Chloride (98-110) mmol/L Carbon Dioxide (21-31) mmol/L BUN (6.0-23.0) mg/dL Creatinine (0.6-1.5) mg/dL Est Cr Clr Drug Dosing mL/min Estimated GFR (MDRD) ml/min Glucose (60-110) mg/dL POC Glucose 144 H 186 H 192 H (60-110) mg/dL Calcium (8.8-10.8) mg/dL Magnesium (1.5-2.3) mEq/L Total Bilirubin (0.1-1.5) mg/dL AST (5-40) IU/L ALT (8-54) IU/L Alkaline Phosphatase (40-150) Total Protein (6.0-8.0) g/dL Albumin (3.4-4.8) g/dL Globulin (2.0-3.5) g/dL Albumin/Globulin Ratio (1.3-2.8) 05/01/17 05/01/17 Range/Units 05:15 05:15 WBC (4.0-11.0) K/uL RBC (4.50-5.90) M/uL Hgb 11.9 L (13.0-17.0) g/dL Hct 36.2 L (38.0-50.0) % MCV (80.0-98.0) fL MCH (27.0-32.0) pg MCHC (31.0-37.0) g/dL RDW Std Deviation (28.0-62.0) fl RDW Coeff of Maria Dolores (11.0-15.0) % Plt Count (150-400) K/uL MPV (7.40-12.00) fL Neut % (Auto) (48.0-80.0) % Lymph % (Auto) (16.0-40.0) % Foster % (Auto) (0.0-15.0) % Eos % (Auto) (0.0-7.0) % Baso % (Auto) (0.0-1.5) % Neut # (Auto) (1.4-5.7) K/uL Lymph # (Auto) (0.6-2.4) K/uL Foster # (Auto) (0.0-0.8) K/uL Eos # (Auto) (0.0-0.7) K/uL Baso # (Auto) (0.0-0.1) K/uL Nucleated RBC % /100WBC Nucleated RBCs # K/uL Sodium 133 L (136-146) mmol/L Potassium 4.8 (3.5-5.1) mmol/L Chloride 102 (98-110) mmol/L Carbon Dioxide 22 (21-31) mmol/L BUN 18 (6.0-23.0) mg/dL Creatinine 0.8 (0.6-1.5) mg/dL Est Cr Clr Drug Dosing 81.43 mL/min Estimated GFR (MDRD) > 60.0 ml/min Glucose 166 H (60-110) mg/dL POC Glucose (60-110) mg/dL Calcium 8.1 L (8.8-10.8) mg/dL Magnesium 1.2 L (1.5-2.3) mEq/L Total Bilirubin (0.1-1.5) mg/dL AST (5-40) IU/L ALT (8-54) IU/L Alkaline Phosphatase (40-150) Total Protein (6.0-8.0) g/dL Albumin (3.4-4.8) g/dL Globulin (2.0-3.5) g/dL Albumin/Globulin Ratio (1.3-2.8) Med Orders - Current: Current Medications Acetaminophen (Tylenol Extra Strength) 1,000 mg PO Q6H [facility] Last Admin: 05/01/17 01:36 Dose: 1,000 mg Al Hydroxide/Mg Hydroxide (Mag-Al Plus) 30 ml PO Q4H PRN PRN Reason: indigestion Aspirin (Aspirin) 325 mg PO BID [facility] Bisacodyl (Dulcolax) 10 mg RECTAL DAILY PRN PRN Reason: Constipation Diphenhydramine HCl (Benadryl) 25 - 50 mg PO Q6H PRN PRN Reason: Itching Docusate Sodium (Colace) 100 mg PO BID [facility] Last Admin: 04/30/17 20:32 Dose: Not Given Finasteride (Proscar) 5 mg PO DAILY [facility] Fluticasone Propionate (Flonase) 0 gm NASBOTH ASDIRECTED PRN PRN Reason: sinus congestion Furosemide (Lasix) 20 mg PO BID [facility] Last Admin: 04/30/17 20:24 Dose: 20 mg Lactated Ringer's (Ringers, Lactated) 1,000 mls @ 100 mls/hr IV ASDIRECTED [facility] Last Admin: 05/01/17 03:49 Dose: 100 mls/hr Insulin Aspart (Novolog) 0 unit SUBCUT TIDAC [facility] PRN Reason: Protocol Last Admin: 05/01/17 06:55 Dose: 2 unit Insulin Glargine (Lantus Solostar) 50 units SUBCUT BEDTIME [facility] Last Admin: 04/30/17 20:31 Dose: 50 units Morphine Sulfate (Morphine) 1 - 3 mg IVPUSH Q3H PRN PRN Reason: Pain Ondansetron HCl (Zofran) 4 mg IV Q6HR PRN PRN Reason: NAUSEA/VOMITING Oxycodone HCl (Oxycontin) 20 mg PO Q12HR [facility] Last Admin: 04/30/17 20:25 Dose: 20 mg Oxycodone HCl (Oxycodone) 5 - 10 mg PO Q4H PRN PRN Reason: Pain Last Admin: 05/01/17 03:49 Dose: 5 mg Potassium Chloride (Klor-Con 10) 10 meq PO DAILY [facility] Pramipexole Dihydrochloride (Mirapex) 0.5 mg PO BEDTIME [facility] Last Admin: 04/30/17 20:24 Dose: 0.5 mg Pramipexole Dihydrochloride (Mirapex) 0.25 mg PO QAM [facility] Scopolamine (Transderm-Scop) 1.5 mg TRDERM ONARRIVE [facility] Last Admin: 04/30/17 07:11 Dose: 1.5 mg Telmisartan (Micardis) 40 mg PO ACBRK [facility] Last Admin: 05/01/17 06:43 Dose: 40 mg Discontinued Medications Acetaminophen (Tylenol Extra Strength) 1,000 mg PO ONARRIVE [facility] Last Admin: 04/30/17 07:11 Dose: 1,000 mg Celecoxib (Celebrex) 200 mg PO DAILY [facility] Ephedrine Sulfate (Ephedrine Sulfate) Confirm Administered Dose 50 mg .ROUTE .STK-MED ONE Stop: 04/30/17 07:25 Famotidine (Pepcid) 40 mg IVPUSH ONARRIVE [facility] Last Admin: 04/30/17 07:09 Dose: 40 mg Fentanyl (Sublimaze) Confirm Administered Dose 200 mcg .ROUTE .STK-MED ONE Stop: 04/30/17 07:24 Fentanyl (Sublimaze) 50 mcg IVPUSH Q5M PRN PRN Reason: Pain (severe 7-10) Stop: 05/01/17 08:59 Cefazolin Sodium/Dextrose 2 gm (/ Premix) 50 mls @ 100 mls/hr IV ONCALL [facility] Ropivacaine 49.25 ml/Ketorolac Tromethamine 30 mg/Epinephrine HCl 0.5 mg/ Clonidine HCl 80 mcg/ Sodium Chloride 100 mls @ 50 mls/min INJECT ONETIME ONE Stop: 04/30/17 06:01 Last Admin: 04/30/17 16:33 Dose: Not Given Cefazolin Sodium/Dextrose 2 gm (/ Premix) 50 mls @ 100 mls/hr IV Q8HR [facility] Stop: 05/01/17 06:29 Acetaminophen 1,000 mg/ Premix 100 mls @ 400 mls/hr IV Q6H [facility] Stop: 04/30/17 19:14 Last Admin: 04/30/17 18:01 Dose: 400 mls/hr Cefazolin Sodium/Dextrose 2 gm (/ Premix) 50 mls @ 100 mls/hr IV Q8HR [facility] Stop: 05/01/17 06:29 Last Admin: 05/01/17 05:53 Dose: 100 mls/hr Ketorolac Tromethamine (Toradol) 30 mg IVPUSH ONARRIVE [facility] Last Admin: 04/30/17 07:10 Dose: 30 mg Ketorolac Tromethamine (Toradol) 15 mg IVPUSH Q6H [facility] Stop: 05/01/17 01:01 Lidocaine (Xylocaine-Mpf 2%) Confirm Administered Dose 10 ml .ROUTE .STK-MED ONE Stop: 04/30/17 07:24 Metoprolol Tartrate (Lopressor) 12.5 mg PO BID [facility] Midazolam HCl (Versed 1 Mg/Ml) Confirm Administered Dose 2 mg .ROUTE .STK-MED ONE Stop: 04/30/17 07:24 Ondansetron HCl (Zofran) Confirm Administered Dose 4 mg .ROUTE .STK-MED ONE Stop: 04/30/17 07:24 Oxycodone HCl (Oxycontin) 20 mg PO ONARRIVE [facility] Last Admin: 04/30/17 07:11 Dose: 20 mg Propofol (Diprivan 20 Ml) Confirm Administered Dose 400 mg .ROUTE .STK-MED ONE Stop: 04/30/17 07:24 Tamsulosin HCl (Flomax) 0.4 mg PO DAILY [facility] Tranexamic Acid (Cyklokapron) 4,000 mg IV SEECOMMENT [facility] Tranexamic Acid (Cyklokapron) Confirm Administered Dose 4,000 mg .ROUTE .STK- MED ONE Stop: 04/30/17 07:16 - Exam Wound/Incisions: Dressing Dry and Intact General: Alert, Oriented HEENT: Pupils Equal, Pupils Reactive Neck: Trachea Midline Lungs: Normal Respiratory Effort Cardiovascular: Regular Rate Extremities: Other (Right anterior tibialis, extensor hallucis longus and gastrocnemius strength +5/5 bilaterally. Sensation intact. Dorsalis pedis and posterior tibial pulses +2 bilaterally. ) Neurological: No New Focal Deficit Psy/Mental Status: Alert, Normal Affect, Normal Mood - Problem List Review Problem List Initiated/Reviewed/Updated: Yes - My Orders Last 24 Hours: Active Orders 24 hr Category Date Time Status Patient Status [ADT] Routine ADT 04/30/17 09:47 Active Blood Glucose Check, Bedside [RC] TIDAC Care 04/30/17 11:39 Active Intake and Output [RC] Q12H Care 04/30/17 09:34 Active Neurovascular Check [RC] Q2HR Care 04/30/17 09:34 Active Notify Provider Consults [RC] ASDIRECTED Care 04/30/17 09:37 Active Overnight Pulse Oximetry [RC] Click to Edit Care 04/30/17 09:53 Active Oxygen Therapy [RC] ASDIRECTED Care 04/30/17 09:53 Active RT Incentive Spirometry [RC] ASDIRECTED Care 04/30/17 09:34 Active Vital Signs [RC] Q4H Care 04/30/17 09:34 Active Consult to Physician [CONS] Routine Cons 04/30/17 09:34 Active PT Evaluation and Treatment [CONS] Routine Cons 04/30/17 09:34 Active BASIC METABOLIC PANEL,BMP [CHEM] DAILY Lab 05/02/17 05:00 Ordered HEMOGLOBIN/HEMATOCRIT,HH [HEME] DAILY Lab 05/02/17 07:00 Ordered HEMOGLOBIN/HEMATOCRIT,HH [HEME] DAILY Lab 05/03/17 07:00 Ordered MAGNESIUM [CHEM] DAILY Lab 05/02/17 05:00 Ordered Acetaminophen [Tylenol Extra Strength] Med 05/01/17 02:00 Active 1,000 mg PO Q6H Alum Hydrox/Mag Hydrox/Simeth [Mag-Al Plus] Med 04/30/17 09:35 Active 30 ml PO Q4H PRN Aspirin Med 05/01/17 09:00 Active 325 mg PO BID Bisacodyl [Dulcolax] Med 04/30/17 09:35 Active 10 mg RECTAL DAILY PRN Docusate Sodium [Colace] Med 04/30/17 21:00 Active 100 mg PO BID Finasteride [Proscar] Med 05/01/17 09:00 Active 5 mg PO DAILY Fluticasone Propionate [Flonase] Med 04/30/17 10:46 Active 0 gm NASBOTH ASDIRECTED PRN Furosemide [Lasix] Med 04/30/17 21:00 Active 20 mg PO BID Insulin Aspart [NovoLOG] Med 04/30/17 17:00 Active See Protocol SUBCUT TIDAC Insulin Glarg,Human.Rec.Analog [LantUS Solostar] Med 04/30/17 21:00 Active 50 units SUBCUT BEDTIME Morphine Med 04/30/17 09:35 Active 1 - 3 mg IVPUSH Q3H PRN Ondansetron [Zofran] Med 04/30/17 09:35 Active 4 mg IV Q6HR PRN Potassium Chloride [Klor-Con 10] Med 05/01/17 09:00 Active 10 meq PO DAILY Pramipexole [Mirapex] Med 05/01/17 09:00 Active 0.25 mg PO QAM Pramipexole [Mirapex] Med 04/30/17 21:00 Active 0.5 mg PO BEDTIME Telmisartan [Micardis] Med 05/01/17 07:30 Active 40 mg PO ACBRK diphenhydrAMINE [Benadryl] Med 04/30/17 09:35 Active 25 - 50 mg PO Q6H PRN oxyCODONE Med 04/30/17 11:07 Active 5 - 10 mg PO Q4H PRN oxyCODONE ER [OxyCONTIN] Med 04/30/17 21:00 Active 20 mg PO Q12HR Ice Therapy [OM.PC] Routine Oth 04/30/17 09:34 Ordered Pulse Oximetry Continuous Monitoring [OM.PC] Routine Oth 04/30/17 09:53 Ordered Medication Orders Acetaminophen (Tylenol Extra Strength) 1,000 mg PO Q6H [facility] Last Admin: 05/01/17 01:36 Dose: 1,000 mg Al Hydroxide/Mg Hydroxide (Mag-Al Plus) 30 ml PO Q4H PRN PRN Reason: indigestion Aspirin (Aspirin) 325 mg PO BID [facility] Bisacodyl (Dulcolax) 10 mg RECTAL DAILY PRN PRN Reason: Constipation Diphenhydramine HCl (Benadryl) 25 - 50 mg PO Q6H PRN PRN Reason: Itching Docusate Sodium (Colace) 100 mg PO BID [facility] Last Admin: 04/30/17 20:32 Dose: Not Given Finasteride (Proscar) 5 mg PO DAILY [facility] Fluticasone Propionate (Flonase) 0 gm NASBOTH ASDIRECTED PRN PRN Reason: sinus congestion Furosemide (Lasix) 20 mg PO BID [facility] Last Admin: 04/30/17 20:24 Dose: 20 mg Lactated Ringer's (Ringers, Lactated) 1,000 mls @ 100 mls/hr IV ASDIRECTED [facility] Last Admin: 05/01/17 03:49 Dose: 100 mls/hr Infusion: 05/01/17 01:27 Dose: 100 mls/hr Admin: 04/30/17 15:27 Dose: 100 mls/hr Infusion: 04/30/17 15:27 Dose: 100 mls/hr Admin: 04/30/17 07:08 Dose: 100 mls/hr Insulin Aspart (Novolog) 0 unit SUBCUT TIDAC [facility] PRN Reason: Protocol Last Admin: 05/01/17 06:55 Dose: 2 unit Admin: 04/30/17 17:01 Dose: 2 unit Insulin Glargine (Lantus Solostar) 50 units SUBCUT BEDTIME [facility] Last Admin: 04/30/17 20:31 Dose: 50 units Morphine Sulfate (Morphine) 1 - 3 mg IVPUSH Q3H PRN PRN Reason: Pain Ondansetron HCl (Zofran) 4 mg IV Q6HR PRN PRN Reason: NAUSEA/VOMITING Oxycodone HCl (Oxycontin) 20 mg PO Q12HR [facility] Last Admin: 04/30/17 20:25 Dose: 20 mg Oxycodone HCl (Oxycodone) 5 - 10 mg PO Q4H PRN PRN Reason: Pain Last Admin: 05/01/17 03:49 Dose: 5 mg Admin: 04/30/17 22:02 Dose: 5 mg Admin: 04/30/17 14:27 Dose: 10 mg Potassium Chloride (Klor-Con 10) 10 meq PO DAILY [facility] Pramipexole Dihydrochloride (Mirapex) 0.5 mg PO BEDTIME [facility] Last Admin: 04/30/17 20:24 Dose: 0.5 mg Pramipexole Dihydrochloride (Mirapex) 0.25 mg PO QAM [facility] Scopolamine (Transderm-Scop) 1.5 mg TRDERM ONARRIVE [facility] Last Admin: 04/30/17 07:11 Dose: 1.5 mg Telmisartan (Micardis) 40 mg PO ACBRK [facility] Last Admin: 05/01/17 06:43 Dose: 40 mg - Assessment Assessment (Free Text/Narrative):: Patient awake in bed this AM. Pain well controlled. Tolerating diet. VSS. Hgb 11.9. UO 995 mL. - Plan Plan (Free Text/Narrative):: Continue PT. Continue pain control. Discontinue LRs and barillas. Start Aspirin 325 mg PO BID for DVT prophylaxis. Probable discharge home tomorrow. <Vane Benjamin - Last Filed: 05/01/17 17:23> - Patient Data Vitals - Most Recent: Last Vital Signs Temp 98.5 F 05/01/17 09:00 Pulse 80 05/01/17 09:00 Resp 26 H 05/01/17 09:00 BP 123/56 L 05/01/17 09:00 Pulse Ox 92 L 05/01/17 09:00 I&O - Last 24 Hours: Intake & Output 05/01/17 05/01/17 05/01/17 06:59 14:59 22:59 Intake Total 1200 600 Output Total 750 600 Balance 450 0 Lab Results Last 24 Hrs: Laboratory Results - last 24 hr 04/30/17 05/01/17 05/01/17 Range/Units 20:28 05:15 05:15 Hgb 11.9 L (13.0-17.0) g/dL Hct 36.2 L (38.0-50.0) % Sodium 133 L (136-146) mmol/L Potassium 4.8 (3.5-5.1) mmol/L Chloride 102 (98-110) mmol/L Carbon Dioxide 22 (21-31) mmol/L BUN 18 (6.0-23.0) mg/dL Creatinine 0.8 (0.6-1.5) mg/dL Est Cr Clr Drug Dosing 81.43 mL/min Estimated GFR (MDRD) > 60.0 ml/min Glucose 166 H (60-110) mg/dL POC Glucose 192 H (60-110) mg/dL Calcium 8.1 L (8.8-10.8) mg/dL Magnesium 1.2 L (1.5-2.3) mEq/L 05/01/17 Range/Units 11:40 Hgb (13.0-17.0) g/dL Hct (38.0-50.0) % Sodium (136-146) mmol/L Potassium (3.5-5.1) mmol/L Chloride (98-110) mmol/L Carbon Dioxide (21-31) mmol/L BUN (6.0-23.0) mg/dL Creatinine (0.6-1.5) mg/dL Est Cr Clr Drug Dosing mL/min Estimated GFR (MDRD) ml/min Glucose (60-110) mg/dL POC Glucose 145 H (60-110) mg/dL Calcium (8.8-10.8) mg/dL Magnesium (1.5-2.3) mEq/L Med Orders - Current: Current Medications Acetaminophen (Tylenol Extra Strength) 1,000 mg PO Q6H [facility] Last Admin: 05/01/17 13:16 Dose: 1,000 mg Al Hydroxide/Mg Hydroxide (Mag-Al Plus) 30 ml PO Q4H PRN PRN Reason: indigestion Aspirin (Aspirin) 325 mg PO BID [facility] Last Admin: 05/01/17 08:08 Dose: 325 mg Bisacodyl (Dulcolax) 10 mg RECTAL DAILY PRN PRN Reason: Constipation Diphenhydramine HCl (Benadryl) 25 - 50 mg PO Q6H PRN PRN Reason: Itching Docusate Sodium (Colace) 100 mg PO BID [facility] Last Admin: 05/01/17 08:08 Dose: 100 mg Finasteride (Proscar) 5 mg PO DAILY [facility] Last Admin: 05/01/17 08:08 Dose: 5 mg Fluticasone Propionate (Flonase) 0 gm NASBOTH ASDIRECTED PRN PRN Reason: sinus congestion Furosemide (Lasix) 20 mg PO BID [facility] Last Admin: 05/01/17 08:07 Dose: 20 mg Insulin Aspart (Novolog) 0 unit SUBCUT TIDAC [facility] PRN Reason: Protocol Last Admin: 05/01/17 11:54 Dose: Not Given Insulin Glargine (Lantus Solostar) 50 units SUBCUT BEDTIME [facility] Last Admin: 04/30/17 20:31 Dose: 50 units Morphine Sulfate (Morphine) 1 - 3 mg IVPUSH Q3H PRN PRN Reason: Pain Ondansetron HCl (Zofran) 4 mg IV Q6HR PRN PRN Reason: NAUSEA/VOMITING Oxycodone HCl (Oxycontin) 20 mg PO Q12HR [facility] Last Admin: 05/01/17 08:08 Dose: 20 mg Oxycodone HCl (Oxycodone) 5 - 10 mg PO Q4H PRN PRN Reason: Pain Last Admin: 05/01/17 14:15 Dose: 10 mg Potassium Chloride (Klor-Con 10) 10 meq PO DAILY [facility] Last Admin: 05/01/17 08:08 Dose: 10 meq Pramipexole Dihydrochloride (Mirapex) 0.5 mg PO BEDTIME [facility] Last Admin: 04/30/17 20:24 Dose: 0.5 mg Pramipexole Dihydrochloride (Mirapex) 0.25 mg PO QAM [facility] Last Admin: 05/01/17 08:07 Dose: 0.25 mg Scopolamine (Transderm-Scop) 1.5 mg TRDERM ONARRIVE [facility] Last Admin: 04/30/17 07:11 Dose: 1.5 mg Sodium Chloride (Saline Flush) 10 ml FLUSH ASDIRECTED PRN PRN Reason: Keep Vein Open Sodium Chloride (Saline Flush) 2.5 ml FLUSH ASDIRECTED PRN PRN Reason: Keep Vein Open Telmisartan (Micardis) 40 mg PO ACBRK [facility] Last Admin: 05/01/17 06:43 Dose: 40 mg Discontinued Medications Acetaminophen (Tylenol Extra Strength) 1,000 mg PO ONARRIVE [facility] Last Admin: 04/30/17 07:11 Dose: 1,000 mg Celecoxib (Celebrex) 200 mg PO DAILY [facility] Ephedrine Sulfate (Ephedrine Sulfate) Confirm Administered Dose 50 mg .ROUTE .STK-MED ONE Stop: 04/30/17 07:25 Famotidine (Pepcid) 40 mg IVPUSH ONARRIVE [facility] Last Admin: 04/30/17 07:09 Dose: 40 mg Fentanyl (Sublimaze) Confirm Administered Dose 200 mcg .ROUTE .STK-MED ONE Stop: 04/30/17 07:24 Fentanyl (Sublimaze) 50 mcg IVPUSH Q5M PRN PRN Reason: Pain (severe 7-10) Stop: 05/01/17 08:59 Cefazolin Sodium/Dextrose 2 gm (/ Premix) 50 mls @ 100 mls/hr IV ONCALL [facility] Ropivacaine 49.25 ml/Ketorolac Tromethamine 30 mg/Epinephrine HCl 0.5 mg/ Clonidine HCl 80 mcg/ Sodium Chloride 100 mls @ 50 mls/min INJECT ONETIME ONE Stop: 04/30/17 06:01 Last Admin: 04/30/17 16:33 Dose: Not Given Lactated Ringer's (Ringers, Lactated) 1,000 mls @ 100 mls/hr IV ASDIRECTED [facility] Last Admin: 05/01/17 03:49 Dose: 100 mls/hr Cefazolin Sodium/Dextrose 2 gm (/ Premix) 50 mls @ 100 mls/hr IV Q8HR [facility] Stop: 05/01/17 06:29 Acetaminophen 1,000 mg/ Premix 100 mls @ 400 mls/hr IV Q6H [facility] Stop: 04/30/17 19:14 Last Admin: 04/30/17 18:01 Dose: 400 mls/hr Cefazolin Sodium/Dextrose 2 gm (/ Premix) 50 mls @ 100 mls/hr IV Q8HR [facility] Stop: 05/01/17 06:29 Last Admin: 05/01/17 05:53 Dose: 100 mls/hr Magnesium Sulfate 4 gm/ Premix 100 mls @ 50 mls/hr IV ONETIME ONE Stop: 05/01/17 10:32 Last Admin: 05/01/17 10:20 Dose: 50 mls/hr Ketorolac Tromethamine (Toradol) 30 mg IVPUSH ONARRIVE [facility] Last Admin: 04/30/17 07:10 Dose: 30 mg Ketorolac Tromethamine (Toradol) 15 mg IVPUSH Q6H [facility] Stop: 05/01/17 01:01 Lidocaine (Xylocaine-Mpf 2%) Confirm Administered Dose 10 ml .ROUTE .STK-MED ONE Stop: 04/30/17 07:24 Metoprolol Tartrate (Lopressor) 12.5 mg PO BID [facility] Midazolam HCl (Versed 1 Mg/Ml) Confirm Administered Dose 2 mg .ROUTE .STK-MED ONE Stop: 04/30/17 07:24 Ondansetron HCl (Zofran) Confirm Administered Dose 4 mg .ROUTE .STK-MED ONE Stop: 04/30/17 07:24 Oxycodone HCl (Oxycontin) 20 mg PO ONARRIVE [facility] Last Admin: 04/30/17 07:11 Dose: 20 mg Propofol (Diprivan 20 Ml) Confirm Administered Dose 400 mg .ROUTE .STK-MED ONE Stop: 04/30/17 07:24 Tamsulosin HCl (Flomax) 0.4 mg PO DAILY [facility] Tranexamic Acid (Cyklokapron) 4,000 mg IV SEECOMMENT [facility] Tranexamic Acid (Cyklokapron) Confirm Administered Dose 4,000 mg .ROUTE .STK- MED ONE Stop: 04/30/17 07:16 - My Orders Last 24 Hours: Active Orders 24 hr Category Date Time Status Dressing Change [Wound Care] [RC] DAILY Care 05/01/17 17:21 Ordered Urinary Catheter Removal [RC] Per Unit Routine Care 05/01/17 08:04 Active BASIC METABOLIC PANEL,BMP [CHEM] DAILY Lab 05/02/17 05:00 Ordered HEMOGLOBIN/HEMATOCRIT,HH [HEME] DAILY Lab 05/02/17 07:00 Ordered HEMOGLOBIN/HEMATOCRIT,HH [HEME] DAILY Lab 05/03/17 07:00 Ordered MAGNESIUM [CHEM] DAILY Lab 05/02/17 05:00 Ordered Acetaminophen [Tylenol Extra Strength] Med 05/01/17 02:00 Active 1,000 mg PO Q6H Aspirin Med 05/01/17 09:00 Active 325 mg PO BID Docusate Sodium [Colace] Med 04/30/17 21:00 Active 100 mg PO BID Finasteride [Proscar] Med 05/01/17 09:00 Active 5 mg PO DAILY Furosemide [Lasix] Med 04/30/17 21:00 Active 20 mg PO BID Insulin Aspart [NovoLOG] Med 04/30/17 17:00 Active See Protocol SUBCUT TIDAC Insulin Glarg,Human.Rec.Analog [LantUS Solostar] Med 04/30/17 21:00 Active 50 units SUBCUT BEDTIME Potassium Chloride [Klor-Con 10] Med 05/01/17 09:00 Active 10 meq PO DAILY Pramipexole [Mirapex] Med 05/01/17 09:00 Active 0.25 mg PO QAM Pramipexole [Mirapex] Med 04/30/17 21:00 Active 0.5 mg PO BEDTIME Sodium Chloride 0.9% [Saline Flush] Med 05/01/17 08:04 Active 10 ml FLUSH ASDIRECTED PRN Sodium Chloride 0.9% [Saline Flush] Med 05/01/17 08:04 Active 2.5 ml FLUSH ASDIRECTED PRN Telmisartan [Micardis] Med 05/01/17 07:30 Active 40 mg PO ACBRK oxyCODONE ER [OxyCONTIN] Med 04/30/17 21:00 Active 20 mg PO Q12HR Convert IV to Saline Lock [OM.PC] Routine Oth 05/01/17 08:04 Ordered Medication Orders Acetaminophen (Tylenol Extra Strength) 1,000 mg PO Q6H [facility] Last Admin: 05/01/17 13:16 Dose: 1,000 mg Admin: 05/01/17 08:06 Dose: 1,000 mg Admin: 05/01/17 01:36 Dose: 1,000 mg Al Hydroxide/Mg Hydroxide (Mag-Al Plus) 30 ml PO Q4H PRN PRN Reason: indigestion Aspirin (Aspirin) 325 mg PO BID [facility] Last Admin: 05/01/17 08:08 Dose: 325 mg Bisacodyl (Dulcolax) 10 mg RECTAL DAILY PRN PRN Reason: Constipation Diphenhydramine HCl (Benadryl) 25 - 50 mg PO Q6H PRN PRN Reason: Itching Docusate Sodium (Colace) 100 mg PO BID [facility] Last Admin: 05/01/17 08:08 Dose: 100 mg Admin: 04/30/17 20:32 Dose: Not Given Finasteride (Proscar) 5 mg PO DAILY [facility] Last Admin: 05/01/17 08:08 Dose: 5 mg Fluticasone Propionate (Flonase) 0 gm NASBOTH ASDIRECTED PRN PRN Reason: sinus congestion Furosemide (Lasix) 20 mg PO BID [facility] Last Admin: 05/01/17 08:07 Dose: 20 mg Admin: 04/30/17 20:24 Dose: 20 mg Insulin Aspart (Novolog) 0 unit SUBCUT TIDAC [facility] PRN Reason: Protocol Last Admin: 05/01/17 11:54 Dose: Admin: 05/01/17 06:55 Dose: 2 unit Admin: 04/30/17 17:01 Dose: 2 unit Insulin Glargine (Lantus Solostar) 50 units SUBCUT BEDTIME [facility] Last Admin: 04/30/17 20:31 Dose: 50 units Morphine Sulfate (Morphine) 1 - 3 mg IVPUSH Q3H PRN PRN Reason: Pain Ondansetron HCl (Zofran) 4 mg IV Q6HR PRN PRN Reason: NAUSEA/VOMITING Oxycodone HCl (Oxycontin) 20 mg PO Q12HR [facility] Last Admin: 05/01/17 08:08 Dose: 20 mg Admin: 04/30/17 20:25 Dose: 20 mg Oxycodone HCl (Oxycodone) 5 - 10 mg PO Q4H PRN PRN Reason: Pain Last Admin: 05/01/17 14:15 Dose: 10 mg Admin: 05/01/17 09:52 Dose: 10 mg Admin: 05/01/17 03:49 Dose: 5 mg Admin: 04/30/17 22:02 Dose: 5 mg Admin: 04/30/17 14:27 Dose: 10 mg Potassium Chloride (Klor-Con 10) 10 meq PO DAILY [facility] Last Admin: 05/01/17 08:08 Dose: 10 meq Pramipexole Dihydrochloride (Mirapex) 0.5 mg PO BEDTIME [facility] Last Admin: 04/30/17 20:24 Dose: 0.5 mg Pramipexole Dihydrochloride (Mirapex) 0.25 mg PO QAM [facility] Last Admin: 05/01/17 08:07 Dose: 0.25 mg Scopolamine (Transderm-Scop) 1.5 mg TRDERM ONARRIVE [facility] Last Admin: 04/30/17 07:11 Dose: 1.5 mg Sodium Chloride (Saline Flush) 10 ml FLUSH ASDIRECTED PRN PRN Reason: Keep Vein Open Sodium Chloride (Saline Flush) 2.5 ml FLUSH ASDIRECTED PRN PRN Reason: Keep Vein Open Telmisartan (Micardis) 40 mg PO ACBRK [facility] Last Admin: 05/01/17 06:43 Dose: 40 mg - Plan Plan (Free Text/Narrative):: [id number] Patient seen and examined. Agree with above. Patient sitting up in chair. Pain better controlled. Progressing with PT. Will plan to change dressing today. continue PT. Hgb stable. Plan d/c home tomorrow.
[2017-05-01] MEDS ORDERED: Sodium Chloride 0.9% 2.5 ML Syringe FLUSH PRN (08:04)
[2017-05-01] MEDS ORDERED: Sodium Chloride 0.9% 10 ML Syringe FLUSH PRN (08:04)
[2017-05-01] MEDS: Pramipexole 0.25 MG Tab PO SCH ×2 (08:07→20:06)
[2017-05-01] MEDS: Furosemide 20 MG Tab PO SCH ×2 (08:07→20:06)
[2017-05-01] MEDS: Potassium Chloride 10 MEQ Tab.ER PO SCH (08:08)
[2017-05-01] MEDS: oxyCODONE ER 20 MG TAB.ER PO SCH ×2 (08:08→20:05)
[2017-05-01] MEDS: Finasteride 5 MG Tab PO SCH (08:08)
[2017-05-01] MEDS: Docusate Sodium 100 MG Cap PO SCH ×2 (08:08→20:08)
[2017-05-01] MEDS: Aspirin 325 MG Tab PO SCH ×2 (08:08→20:07)
[2017-05-01] MEDS ORDERED: Magnesium Sulfate/Water 4 GM in Premix Bag 1 BAG IV ONE (08:33)
[2017-05-01] MEDS ORDERED: Tamsulosin 0.4 MG Cap.ER PO SCH (09:00)
[2017-05-01] MEDS ORDERED: Celecoxib 100 MG Cap PO SCH (09:00)
--- NOTE | 2017-05-01 11:35 | PCM.CONSN ---
- General Info Date of Service: 05/01/17 Admission Dx/Problem (Free Text): Admission Diagnosis/Problem Admission Diagnosis/Problem Replacement of total knee joint Subjective Update: Doing well this morning, pain to knee is about 6/10. Didn't sleep well last evening. Denies chest pain or SOB. Functional Status: Reports: Pain Controlled, Tolerating Diet, Ambulating - Review of Systems General: Denies: Fever Pulmonary: Reports: No Symptoms. Denies: Shortness of Breath, Cough, Sputum Cardiovascular: Reports: No Symptoms. Denies: Chest Pain, Palpitations, Edema Gastrointestinal: Reports: No Symptoms. Denies: Abdominal Pain, Nausea, Vomiting Genitourinary: Reports: No Symptoms. Denies: Dysuria, Frequency, Burning Musculoskeletal: Reports: No Symptoms Neurological: Reports: No Symptoms Psychiatric: Reports: No Symptoms - Patient Data Vitals - Most Recent: Last Vital Signs Temp 98.5 F 05/01/17 09:00 Pulse 80 05/01/17 09:00 Resp 26 H 05/01/17 09:00 BP 123/56 L 05/01/17 09:00 Pulse Ox 92 L 05/01/17 09:00 Weight - Most Recent: 150.593 kg I&O - Last 24 Hours: Intake & Output 04/30/17 05/01/17 05/01/17 22:59 06:59 14:59 Intake Total 685 1200 Output Total 150 750 Balance 535 450 Lab Results Last 24 Hours: Laboratory Results - last 24 hr 04/30/17 04/30/17 04/30/17 Range/Units 10:02 11:05 12:09 Hgb (13.0-17.0) g/dL Hct (38.0-50.0) % Sodium 138 (136-146) mmol/L Potassium 3.9 (3.5-5.1) mmol/L Chloride 105 (98-110) mmol/L Carbon Dioxide 23 (21-31) mmol/L BUN 18 (6.0-23.0) mg/dL Creatinine 0.9 (0.6-1.5) mg/dL Est Cr Clr Drug Dosing 72.38 mL/min Estimated GFR (MDRD) > 60.0 ml/min Glucose 145 H (60-110) mg/dL POC Glucose 129 H 144 H (60-110) mg/dL Calcium 8.4 L (8.8-10.8) mg/dL Magnesium (1.5-2.3) mEq/L Total Bilirubin 0.2 (0.1-1.5) mg/dL AST 15 (5-40) IU/L ALT 22 (8-54) IU/L Alkaline Phosphatase 93 (40-150) Total Protein 6.1 (6.0-8.0) g/dL Albumin 3.4 (3.4-4.8) g/dL Globulin 2.7 (2.0-3.5) g/dL Albumin/Globulin Ratio 1.3 (1.3-2.8) 04/30/17 04/30/17 05/01/17 Range/Units 16:15 20:28 05:15 Hgb 11.9 L (13.0-17.0) g/dL Hct 36.2 L (38.0-50.0) % Sodium (136-146) mmol/L Potassium (3.5-5.1) mmol/L Chloride (98-110) mmol/L Carbon Dioxide (21-31) mmol/L BUN (6.0-23.0) mg/dL Creatinine (0.6-1.5) mg/dL Est Cr Clr Drug Dosing mL/min Estimated GFR (MDRD) ml/min Glucose (60-110) mg/dL POC Glucose 186 H 192 H (60-110) mg/dL Calcium (8.8-10.8) mg/dL Magnesium (1.5-2.3) mEq/L Total Bilirubin (0.1-1.5) mg/dL AST (5-40) IU/L ALT (8-54) IU/L Alkaline Phosphatase (40-150) Total Protein (6.0-8.0) g/dL Albumin (3.4-4.8) g/dL Globulin (2.0-3.5) g/dL Albumin/Globulin Ratio (1.3-2.8) 05/01/17 Range/Units 05:15 Hgb (13.0-17.0) g/dL Hct (38.0-50.0) % Sodium 133 L (136-146) mmol/L Potassium 4.8 (3.5-5.1) mmol/L Chloride 102 (98-110) mmol/L Carbon Dioxide 22 (21-31) mmol/L BUN 18 (6.0-23.0) mg/dL Creatinine 0.8 (0.6-1.5) mg/dL Est Cr Clr Drug Dosing 81.43 mL/min Estimated GFR (MDRD) > 60.0 ml/min Glucose 166 H (60-110) mg/dL POC Glucose (60-110) mg/dL Calcium 8.1 L (8.8-10.8) mg/dL Magnesium 1.2 L (1.5-2.3) mEq/L Total Bilirubin (0.1-1.5) mg/dL AST (5-40) IU/L ALT (8-54) IU/L Alkaline Phosphatase (40-150) Total Protein (6.0-8.0) g/dL Albumin (3.4-4.8) g/dL Globulin (2.0-3.5) g/dL Albumin/Globulin Ratio (1.3-2.8) Med Orders - Current: Current Medications Acetaminophen (Tylenol Extra Strength) 1,000 mg PO Q6H [facility] Last Admin: 05/01/17 08:06 Dose: 1,000 mg Al Hydroxide/Mg Hydroxide (Mag-Al Plus) 30 ml PO Q4H PRN PRN Reason: indigestion Aspirin (Aspirin) 325 mg PO BID [facility] Last Admin: 05/01/17 08:08 Dose: 325 mg Bisacodyl (Dulcolax) 10 mg RECTAL DAILY PRN PRN Reason: Constipation Diphenhydramine HCl (Benadryl) 25 - 50 mg PO Q6H PRN PRN Reason: Itching Docusate Sodium (Colace) 100 mg PO BID [facility] Last Admin: 05/01/17 08:08 Dose: 100 mg Finasteride (Proscar) 5 mg PO DAILY [facility] Last Admin: 05/01/17 08:08 Dose: 5 mg Fluticasone Propionate (Flonase) 0 gm NASBOTH ASDIRECTED PRN PRN Reason: sinus congestion Furosemide (Lasix) 20 mg PO BID [facility] Last Admin: 05/01/17 08:07 Dose: 20 mg Insulin Aspart (Novolog) 0 unit SUBCUT TIDAC [facility] PRN Reason: Protocol Last Admin: 05/01/17 06:55 Dose: 2 unit Insulin Glargine (Lantus Solostar) 50 units SUBCUT BEDTIME [facility] Last Admin: 04/30/17 20:31 Dose: 50 units Morphine Sulfate (Morphine) 1 - 3 mg IVPUSH Q3H PRN PRN Reason: Pain Ondansetron HCl (Zofran) 4 mg IV Q6HR PRN PRN Reason: NAUSEA/VOMITING Oxycodone HCl (Oxycontin) 20 mg PO Q12HR [facility] Last Admin: 05/01/17 08:08 Dose: 20 mg Oxycodone HCl (Oxycodone) 5 - 10 mg PO Q4H PRN PRN Reason: Pain Last Admin: 05/01/17 09:52 Dose: 10 mg Potassium Chloride (Klor-Con 10) 10 meq PO DAILY [facility] Last Admin: 05/01/17 08:08 Dose: 10 meq Pramipexole Dihydrochloride (Mirapex) 0.5 mg PO BEDTIME [facility] Last Admin: 04/30/17 20:24 Dose: 0.5 mg Pramipexole Dihydrochloride (Mirapex) 0.25 mg PO QAM [facility] Last Admin: 05/01/17 08:07 Dose: 0.25 mg Scopolamine (Transderm-Scop) 1.5 mg TRDERM ONARRIVE [facility] Last Admin: 04/30/17 07:11 Dose: 1.5 mg Sodium Chloride (Saline Flush) 10 ml FLUSH ASDIRECTED PRN PRN Reason: Keep Vein Open Sodium Chloride (Saline Flush) 2.5 ml FLUSH ASDIRECTED PRN PRN Reason: Keep Vein Open Telmisartan (Micardis) 40 mg PO ACBRK [facility] Last Admin: 05/01/17 06:43 Dose: 40 mg Discontinued Medications Acetaminophen (Tylenol Extra Strength) 1,000 mg PO ONARRIVE [facility] Last Admin: 04/30/17 07:11 Dose: 1,000 mg Celecoxib (Celebrex) 200 mg PO DAILY [facility] Ephedrine Sulfate (Ephedrine Sulfate) Confirm Administered Dose 50 mg .ROUTE .STK-MED ONE Stop: 04/30/17 07:25 Famotidine (Pepcid) 40 mg IVPUSH ONARRIVE [facility] Last Admin: 04/30/17 07:09 Dose: 40 mg Fentanyl (Sublimaze) Confirm Administered Dose 200 mcg .ROUTE .STK-MED ONE Stop: 04/30/17 07:24 Fentanyl (Sublimaze) 50 mcg IVPUSH Q5M PRN PRN Reason: Pain (severe 7-10) Stop: 05/01/17 08:59 Cefazolin Sodium/Dextrose 2 gm (/ Premix) 50 mls @ 100 mls/hr IV ONCALL [facility] Ropivacaine 49.25 ml/Ketorolac Tromethamine 30 mg/Epinephrine HCl 0.5 mg/ Clonidine HCl 80 mcg/ Sodium Chloride 100 mls @ 50 mls/min INJECT ONETIME ONE Stop: 04/30/17 06:01 Last Admin: 04/30/17 16:33 Dose: Not Given Lactated Ringer's (Ringers, Lactated) 1,000 mls @ 100 mls/hr IV ASDIRECTED [facility] Last Admin: 05/01/17 03:49 Dose: 100 mls/hr Cefazolin Sodium/Dextrose 2 gm (/ Premix) 50 mls @ 100 mls/hr IV Q8HR [facility] Stop: 05/01/17 06:29 Acetaminophen 1,000 mg/ Premix 100 mls @ 400 mls/hr IV Q6H [facility] Stop: 04/30/17 19:14 Last Admin: 04/30/17 18:01 Dose: 400 mls/hr Cefazolin Sodium/Dextrose 2 gm (/ Premix) 50 mls @ 100 mls/hr IV Q8HR [facility] Stop: 05/01/17 06:29 Last Admin: 05/01/17 05:53 Dose: 100 mls/hr Magnesium Sulfate 4 gm/ Premix 100 mls @ 50 mls/hr IV ONETIME ONE Stop: 05/01/17 10:32 Last Admin: 05/01/17 10:20 Dose: 50 mls/hr Ketorolac Tromethamine (Toradol) 30 mg IVPUSH ONARRIVE [facility] Last Admin: 04/30/17 07:10 Dose: 30 mg Ketorolac Tromethamine (Toradol) 15 mg IVPUSH Q6H [facility] Stop: 05/01/17 01:01 Lidocaine (Xylocaine-Mpf 2%) Confirm Administered Dose 10 ml .ROUTE .STK-MED ONE Stop: 04/30/17 07:24 Metoprolol Tartrate (Lopressor) 12.5 mg PO BID [facility] Midazolam HCl (Versed 1 Mg/Ml) Confirm Administered Dose 2 mg .ROUTE .STK-MED ONE Stop: 04/30/17 07:24 Ondansetron HCl (Zofran) Confirm Administered Dose 4 mg .ROUTE .STK-MED ONE Stop: 04/30/17 07:24 Oxycodone HCl (Oxycontin) 20 mg PO ONARRIVE [facility] Last Admin: 04/30/17 07:11 Dose: 20 mg Propofol (Diprivan 20 Ml) Confirm Administered Dose 400 mg .ROUTE .STK-MED ONE Stop: 04/30/17 07:24 Tamsulosin HCl (Flomax) 0.4 mg PO DAILY [facility] Tranexamic Acid (Cyklokapron) 4,000 mg IV SEECOMMENT [facility] Tranexamic Acid (Cyklokapron) Confirm Administered Dose 4,000 mg .ROUTE .[facility]- [facility] ONE Stop: 04/30/17 07:16 - Exam General: Alert, Oriented, Cooperative, No Acute Distress Neck: Supple Lungs: Clear to Auscultation, Normal Respiratory Effort Cardiovascular: Regular Rate, Regular Rhythm GI/Abdominal Exam: Normal Bowel Sounds, Soft, Non-Tender, No Organomegaly, No Distention, No Abnormal Bruit, No Mass, Pelvis Stable Extremities: Normal Inspection, Pedal Edema (scant edema noted to BLE) Wound/Incisions: Dressing Dry and Intact Psy/Mental Status: Alert, Normal Affect, Normal Mood Consult PN Assessment/Plan Procedures: Procedures CARDIOVASCULAR STRESS TEST (02/21/17) COLONOSCOPY AND BIOPSY (10/27/13) COLONOSCOPY W/LESION REMOVAL (10/27/13) HT MUSCLE IMAGE SPECT SING (02/26/17) MRI JNT OF LWR EXTRE W/O DYE (01/23/17) OFFICE/OUTPATIENT VISIT EST (11/11/13) TTE W/DOPPLER COMPLETE (02/27/17) X-RAY EXAM KNEE 4 OR MORE (01/18/17) (1) S/P total knee replacement SNOMED Code(s): 0342108664798, 7507099957843 Code(s): Z96.659 - PRESENCE OF UNSPECIFIED ARTIFICIAL KNEE JOINT Current Visit: Yes Qualifiers: Laterality: right Qualified Code(s): Z96.651 - Presence of right artificial knee joint (2) DM type 2 (diabetes mellitus, type 2) SNOMED Code(s): 40832649 Code(s): E11.9 - TYPE 2 DIABETES MELLITUS WITHOUT COMPLICATIONS Current Visit: Yes Qualifiers: Diabetes mellitus complication status: without complication Diabetes mellitus long term care phlebotomist insulin use: with [facility] use Qualified Code(s): E11.9 - Type 2 diabetes mellitus without complications; Z79.4 - watermelon inspector (current) use of insulin; Z79.4 - watermelon inspector (current) use of insulin; Z79.4 - group home ( current) use of insulin; Z79.4 - watermelon inspector (current) use of insulin (3) CAD (coronary artery disease) SNOMED Code(s): 27873285 Code(s): I25.10 - ATHSCL HEART DISEASE OF [place] CORONARY ARTERY W/O ANG PCTRS Current Visit: Yes Qualifiers: Coronary Disease-Associated Artery/Lesion type: [place] artery [place] vs. transplanted heart: [place] heart Associated angina: without angina Qualified Code(s): I25.10 - Atherosclerotic heart disease of [place] coronary artery without angina pectoris (4) HTN (hypertension) SNOMED Code(s): 68930711 Code(s): I10 - ESSENTIAL (PRIMARY) HYPERTENSION Current Visit: Yes Qualifiers: Hypertension type: essential hypertension Qualified Code(s): I10 - Essential (primary) hypertension (5) Obesity SNOMED Code(s): 867322171 Code(s): E66.9 - OBESITY, UNSPECIFIED Current Visit: Yes Qualifiers: Obesity type: due to excess calories Obesity classification: adult class 3 (BMI >= 40) Body mass index: BMI 50.0-59.9 (6) PRANAY on CPAP SNOMED Code(s): 11170186 Code(s): G47.33 - OBSTRUCTIVE SLEEP APNEA (ADULT) (PEDIATRIC); Z99.89 - DEPENDENCE ON OTHER ENABLING MACHINES AND DEVICES Current Visit: Yes (7) Hx of cardiomyopathy SNOMED Code(s): 669724347273432 Code(s): Z86.79 - PERSONAL HISTORY OF OTHER DISEASES OF THE CIRCULATORY SYSTEM Current Visit: Yes Problem List Initiated/Reviewed/Updated: Yes My Orders Last 24 Hours: My Active Orders 04/30/17 10:46 Fluticasone Propionate [Flonase] 0 gm NASBOTH ASDIRECTED PRN 04/30/17 11:39 Blood Glucose Check, Bedside [RC] TIDAC 04/30/17 17:00 Insulin Aspart [NovoLOG] See Protocol SUBCUT TIDAC 04/30/17 21:00 Furosemide [Lasix] 20 mg PO BID Insulin Glarg,Human.Rec.Analog [LantUS Solostar] 50 units SUBCUT BEDTIME Pramipexole [Mirapex] 0.5 mg PO BEDTIME 05/01/17 07:30 Telmisartan [Micardis] 40 mg PO ACBRK 05/01/17 09:00 Finasteride [Proscar] 5 mg PO DAILY Potassium Chloride [Klor-Con 10] 10 meq PO DAILY Pramipexole [Mirapex] 0.25 mg PO QAM 05/02/17 05:00 BASIC METABOLIC PANEL,BMP [CHEM] DAILY MAGNESIUM [CHEM] DAILY Plan: This 71 year old male admitted for R TKA with Dr. Benjamin. Hospitalist service consulted for medical management 1. S/P R TKA: per Dr Benjamin. Discontinued Celebrex and Toradol due to CAD and cardiac risk as well as DM. 2. HTN: Continue Telmisartan and Furosemide. Monitor BMPs in am. Will supplement Magnesium today . 3. CAD: Continue ASA, now on ASA BID for VTE prophylaxis. 4. DM type 2: BS controlled. Will hold PO home medications, Metformin and Glimepiride, while hospitalized. Novolog SSI with meals and continue Lantus at bedtime 5. Exp wheeze noted: Dr. Head recommended PFT as outpatient and started Flovent, will continue this and place PRN nebulizers. 6. BPH: Continue Finasteride VTE prophylaxis: Do recommended with Ortho deems appropriate. On ASA 325 mg BID now.
[2017-05-01] MEDS: Insulin Glargine,Human Rec. Analog 100 Units/ML 3 ML Pen SUBCUT SCH (20:07)
[2017-05-02] MEDS: oxyCODONE 5 MG Tab PO PRN ×2 (00:21→05:43)
[2017-05-02] MEDS: Acetaminophen 500 MG Tab PO SCH ×2 (03:13→08:54)
[2017-05-02 06:26] LABS: CHLORIDE,CL 101 mmol/L (98-110); SODIUM,NA 132 mmol/L (136-146)
[2017-05-02] MEDS: Insulin Aspart 100 Units/ML 3 ML Pen SUBCUT SCH (07:03)
--- NOTE | 2017-05-02 08:12 | PCM.SURGPN ---
- General Info Date of Service: 05/02/17 Date of Surgery/Procedure: 04/30/17 POD#: 2 Functional Status: Reports: Pain Controlled, Tolerating Diet, Ambulating, Urinating - Review of Systems General: Reports: No Symptoms Pulmonary: Reports: No Symptoms Cardiovascular: Reports: No Symptoms Gastrointestinal: Reports: No Symptoms Genitourinary: Reports: No Symptoms Musculoskeletal: Reports: Leg Pain, Joint Pain, Joint Swelling Neurological: Reports: No Symptoms Psychiatric: Reports: No Symptoms - Patient Data Vitals - Most Recent: Last Vital Signs Temp 35.8 C 05/02/17 04:00 Pulse 93 05/02/17 04:00 Resp 20 05/02/17 04:00 BP 146/75 H 05/02/17 07:10 Pulse Ox 95 05/02/17 04:00 Weight - Most Recent: 150.593 kg I&O - Last 24 Hours: Intake & Output 05/01/17 05/02/17 05/02/17 22:59 06:59 14:59 Intake Total 600 150 Output Total 600 650 Balance 0 -500 Lab Results Last 24 Hrs: Laboratory Results - last 24 hr 05/01/17 05/01/17 05/01/17 Range/Units 11:40 17:18 20:49 Hgb (13.0-17.0) g/dL Hct (38.0-50.0) % Sodium (136-146) mmol/L Potassium (3.5-5.1) mmol/L Chloride (98-110) mmol/L Carbon Dioxide (21-31) mmol/L BUN (6.0-23.0) mg/dL Creatinine (0.6-1.5) mg/dL Est Cr Clr Drug Dosing mL/min Estimated GFR (MDRD) ml/min Glucose (60-110) mg/dL POC Glucose 145 H 224 H 190 H (60-110) mg/dL Calcium (8.8-10.8) mg/dL Magnesium (1.5-2.3) mEq/L 05/02/17 05/02/17 05/02/17 Range/Units 05:37 05:37 07:08 Hgb 12.5 L (13.0-17.0) g/dL Hct 38.0 (38.0-50.0) % Sodium 132 L (136-146) mmol/L Potassium 4.8 (3.5-5.1) mmol/L Chloride 101 (98-110) mmol/L Carbon Dioxide 18 L (21-31) mmol/L BUN 14 (6.0-23.0) mg/dL Creatinine 0.8 (0.6-1.5) mg/dL Est Cr Clr Drug Dosing 81.43 mL/min Estimated GFR (MDRD) > 60.0 ml/min Glucose 178 H (60-110) mg/dL POC Glucose 185 H (60-110) mg/dL Calcium 8.6 L (8.8-10.8) mg/dL Magnesium 1.7 (1.5-2.3) mEq/L Med Orders - Current: Current Medications Acetaminophen (Tylenol Extra Strength) 1,000 mg PO Q6H [facility] Last Admin: 05/02/17 03:13 Dose: Not Given Al Hydroxide/Mg Hydroxide (Mag-Al Plus) 30 ml PO Q4H PRN PRN Reason: indigestion Aspirin (Aspirin) 325 mg PO BID [facility] Last Admin: 05/01/17 20:07 Dose: 325 mg Bisacodyl (Dulcolax) 10 mg RECTAL DAILY PRN PRN Reason: Constipation Diphenhydramine HCl (Benadryl) 25 - 50 mg PO Q6H PRN PRN Reason: Itching Docusate Sodium (Colace) 100 mg PO BID [facility] Last Admin: 05/01/17 20:08 Dose: Not Given Finasteride (Proscar) 5 mg PO DAILY [facility] Last Admin: 05/01/17 08:08 Dose: 5 mg Fluticasone Propionate (Flonase) 0 gm NASBOTH ASDIRECTED PRN PRN Reason: sinus congestion Furosemide (Lasix) 20 mg PO BID [facility] Last Admin: 05/01/17 20:06 Dose: 20 mg Insulin Aspart (Novolog) 0 unit SUBCUT TIDAC [facility] PRN Reason: Protocol Last Admin: 05/02/17 07:03 Dose: 2 unit Insulin Glargine (Lantus Solostar) 50 units SUBCUT BEDTIME [facility] Last Admin: 05/01/17 20:07 Dose: 50 units Morphine Sulfate (Morphine) 1 - 3 mg IVPUSH Q3H PRN PRN Reason: Pain Ondansetron HCl (Zofran) 4 mg IV Q6HR PRN PRN Reason: NAUSEA/VOMITING Oxycodone HCl (Oxycontin) 20 mg PO Q12HR [facility] Last Admin: 05/01/17 20:05 Dose: 20 mg Oxycodone HCl (Oxycodone) 5 - 10 mg PO Q4H PRN PRN Reason: Pain Last Admin: 05/02/17 05:43 Dose: 10 mg Potassium Chloride (Klor-Con 10) 10 meq PO DAILY [facility] Last Admin: 05/01/17 08:08 Dose: 10 meq Pramipexole Dihydrochloride (Mirapex) 0.5 mg PO BEDTIME [facility] Last Admin: 05/01/17 20:06 Dose: 0.5 mg Pramipexole Dihydrochloride (Mirapex) 0.25 mg PO QAM [facility] Last Admin: 05/01/17 08:07 Dose: 0.25 mg Scopolamine (Transderm-Scop) 1.5 mg TRDERM ONARRIVE [facility] Last Admin: 04/30/17 07:11 Dose: 1.5 mg Sodium Chloride (Saline Flush) 10 ml FLUSH ASDIRECTED PRN PRN Reason: Keep Vein Open Sodium Chloride (Saline Flush) 2.5 ml FLUSH ASDIRECTED PRN PRN Reason: Keep Vein Open Telmisartan (Micardis) 40 mg PO ACBRK [facility] Last Admin: 05/02/17 07:10 Dose: 40 mg Discontinued Medications Acetaminophen (Tylenol Extra Strength) 1,000 mg PO ONARRIVE [facility] Last Admin: 04/30/17 07:11 Dose: 1,000 mg Celecoxib (Celebrex) 200 mg PO DAILY [facility] Ephedrine Sulfate (Ephedrine Sulfate) Confirm Administered Dose 50 mg .ROUTE .STK-MED ONE Stop: 04/30/17 07:25 Famotidine (Pepcid) 40 mg IVPUSH ONARRIVE [facility] Last Admin: 04/30/17 07:09 Dose: 40 mg Fentanyl (Sublimaze) Confirm Administered Dose 200 mcg .ROUTE .STK-MED ONE Stop: 04/30/17 07:24 Fentanyl (Sublimaze) 50 mcg IVPUSH Q5M PRN PRN Reason: Pain (severe 7-10) Stop: 05/01/17 08:59 Cefazolin Sodium/Dextrose 2 gm (/ Premix) 50 mls @ 100 mls/hr IV ONCALL [facility] Ropivacaine 49.25 ml/Ketorolac Tromethamine 30 mg/Epinephrine HCl 0.5 mg/ Clonidine HCl 80 mcg/ Sodium Chloride 100 mls @ 50 mls/min INJECT ONETIME ONE Stop: 04/30/17 06:01 Last Admin: 04/30/17 16:33 Dose: Not Given Lactated Ringer's (Ringers, Lactated) 1,000 mls @ 100 mls/hr IV ASDIRECTED [facility] Last Admin: 05/01/17 03:49 Dose: 100 mls/hr Cefazolin Sodium/Dextrose 2 gm (/ Premix) 50 mls @ 100 mls/hr IV Q8HR [facility] Stop: 05/01/17 06:29 Acetaminophen 1,000 mg/ Premix 100 mls @ 400 mls/hr IV Q6H [facility] Stop: 04/30/17 19:14 Last Admin: 04/30/17 18:01 Dose: 400 mls/hr Cefazolin Sodium/Dextrose 2 gm (/ Premix) 50 mls @ 100 mls/hr IV Q8HR [facility] Stop: 05/01/17 06:29 Last Admin: 05/01/17 05:53 Dose: 100 mls/hr Magnesium Sulfate 4 gm/ Premix 100 mls @ 50 mls/hr IV ONETIME ONE Stop: 05/01/17 10:32 Last Admin: 05/01/17 10:20 Dose: 50 mls/hr Ketorolac Tromethamine (Toradol) 30 mg IVPUSH ONARRIVE [facility] Last Admin: 04/30/17 07:10 Dose: 30 mg Ketorolac Tromethamine (Toradol) 15 mg IVPUSH Q6H [facility] Stop: 05/01/17 01:01 Lidocaine (Xylocaine-Mpf 2%) Confirm Administered Dose 10 ml .ROUTE .STK-MED ONE Stop: 04/30/17 07:24 Metoprolol Tartrate (Lopressor) 12.5 mg PO BID [facility] Midazolam HCl (Versed 1 Mg/Ml) Confirm Administered Dose 2 mg .ROUTE .STK-MED ONE Stop: 04/30/17 07:24 Ondansetron HCl (Zofran) Confirm Administered Dose 4 mg .ROUTE .STK-MED ONE Stop: 04/30/17 07:24 Oxycodone HCl (Oxycontin) 20 mg PO ONARRIVE [facility] Last Admin: 04/30/17 07:11 Dose: 20 mg Propofol (Diprivan 20 Ml) Confirm Administered Dose 400 mg .ROUTE .STK-MED ONE Stop: 04/30/17 07:24 Tamsulosin HCl (Flomax) 0.4 mg PO DAILY [facility] Tranexamic Acid (Cyklokapron) 4,000 mg IV SEECOMMENT [facility] Tranexamic Acid (Cyklokapron) Confirm Administered Dose 4,000 mg .ROUTE .STK- MED ONE Stop: 04/30/17 07:16 - Exam Wound/Incisions: Dressing Dry and Intact (Dressing changed yesterday.) General: Alert, Oriented HEENT: Pupils Equal, Pupils Reactive Neck: Trachea Midline Lungs: Normal Respiratory Effort Extremities: Other Neurological: No New Focal Deficit Psy/Mental Status: Alert, Normal Affect, Normal Mood - Problem List Review Problem List Initiated/Reviewed/Updated: Yes - My Orders Last 24 Hours: Active Orders 24 hr Category Date Time Status Dressing Change [Wound Care] [RC] DAILY Care 05/01/17 17:21 Active HEMOGLOBIN/HEMATOCRIT,HH [HEME] DAILY Lab 05/03/17 07:00 Ordered Aspirin Med 05/01/17 09:00 Active 325 mg PO BID Finasteride [Proscar] Med 05/01/17 09:00 Active 5 mg PO DAILY Potassium Chloride [Klor-Con 10] Med 05/01/17 09:00 Active 10 meq PO DAILY Pramipexole [Mirapex] Med 05/01/17 09:00 Active 0.25 mg PO QAM Sodium Chloride 0.9% [Saline Flush] Med 05/01/17 08:04 Active 10 ml FLUSH ASDIRECTED PRN Sodium Chloride 0.9% [Saline Flush] Med 05/01/17 08:04 Active 2.5 ml FLUSH ASDIRECTED PRN Telmisartan [Micardis] Med 05/01/17 07:30 Active 40 mg PO ACBRK Convert IV to Saline Lock [OM.PC] Routine Oth 05/01/17 08:04 Ordered Medication Orders Acetaminophen (Tylenol Extra Strength) 1,000 mg PO Q6H [facility] Last Admin: 05/02/17 03:13 Dose: Not Given Admin: 05/01/17 20:03 Dose: 1,000 mg Admin: 05/01/17 13:16 Dose: 1,000 mg Admin: 05/01/17 08:06 Dose: 1,000 mg Admin: 05/01/17 01:36 Dose: 1,000 mg Al Hydroxide/Mg Hydroxide (Mag-Al Plus) 30 ml PO Q4H PRN PRN Reason: indigestion Aspirin (Aspirin) 325 mg PO BID [facility] Last Admin: 05/01/17 20:07 Dose: 325 mg Admin: 05/01/17 08:08 Dose: 325 mg Bisacodyl (Dulcolax) 10 mg RECTAL DAILY PRN PRN Reason: Constipation Diphenhydramine HCl (Benadryl) 25 - 50 mg PO Q6H PRN PRN Reason: Itching Docusate Sodium (Colace) 100 mg PO BID [facility] Last Admin: 05/01/17 20:08 Dose: Not Given Admin: 05/01/17 08:08 Dose: 100 mg Admin: 04/30/17 20:32 Dose: Not Given Finasteride (Proscar) 5 mg PO DAILY [facility] Last Admin: 05/01/17 08:08 Dose: 5 mg Fluticasone Propionate (Flonase) 0 gm NASBOTH ASDIRECTED PRN PRN Reason: sinus congestion Furosemide (Lasix) 20 mg PO BID [facility] Last Admin: 05/01/17 20:06 Dose: 20 mg Admin: 05/01/17 08:07 Dose: 20 mg Admin: 04/30/17 20:24 Dose: 20 mg Insulin Aspart (Novolog) 0 unit SUBCUT TIDAC [facility] PRN Reason: Protocol Last Admin: 05/02/17 07:03 Dose: 2 unit Admin: 05/01/17 17:34 Dose: 4 unit Admin: 05/01/17 11:54 Dose: Admin: 05/01/17 06:55 Dose: 2 unit Admin: 04/30/17 17:01 Dose: 2 unit Insulin Glargine (Lantus Solostar) 50 units SUBCUT BEDTIME [facility] Last Admin: 05/01/17 20:07 Dose: 50 units Admin: 04/30/17 20:31 Dose: 50 units Morphine Sulfate (Morphine) 1 - 3 mg IVPUSH Q3H PRN PRN Reason: Pain Ondansetron HCl (Zofran) 4 mg IV Q6HR PRN PRN Reason: NAUSEA/VOMITING Oxycodone HCl (Oxycontin) 20 mg PO Q12HR [facility] Last Admin: 05/01/17 20:05 Dose: 20 mg Admin: 05/01/17 08:08 Dose: 20 mg Admin: 04/30/17 20:25 Dose: 20 mg Oxycodone HCl (Oxycodone) 5 - 10 mg PO Q4H PRN PRN Reason: Pain Last Admin: 05/02/17 05:43 Dose: 10 mg Admin: 05/02/17 00:21 Dose: 10 mg Admin: 05/01/17 14:15 Dose: 10 mg Admin: 05/01/17 09:52 Dose: 10 mg Admin: 05/01/17 03:49 Dose: 5 mg Admin: 04/30/17 22:02 Dose: 5 mg Admin: 04/30/17 14:27 Dose: 10 mg Potassium Chloride (Klor-Con 10) 10 meq PO DAILY [facility] Last Admin: 05/01/17 08:08 Dose: 10 meq Pramipexole Dihydrochloride (Mirapex) 0.5 mg PO BEDTIME [facility] Last Admin: 05/01/17 20:06 Dose: 0.5 mg Admin: 04/30/17 20:24 Dose: 0.5 mg Pramipexole Dihydrochloride (Mirapex) 0.25 mg PO QAM [facility] Last Admin: 05/01/17 08:07 Dose: 0.25 mg Scopolamine (Transderm-Scop) 1.5 mg TRDERM ONARRIVE [facility] Last Admin: 04/30/17 07:11 Dose: 1.5 mg Sodium Chloride (Saline Flush) 10 ml FLUSH ASDIRECTED PRN PRN Reason: Keep Vein Open Sodium Chloride (Saline Flush) 2.5 ml FLUSH ASDIRECTED PRN PRN Reason: Keep Vein Open Telmisartan (Micardis) 40 mg PO ACBRK [facility] Last Admin: 05/02/17 07:10 Dose: 40 mg Admin: 05/01/17 06:43 Dose: 40 mg - Assessment Assessment (Free Text/Narrative):: Patient awake in bed this AM. Pain well controlled. Tolerating diet. Ambulating and urinating. VSS. Hgb 12.5 UO 1250 mL. - Plan Plan (Free Text/Narrative):: Continue PT. Continue PO pain management. Encourage PO fluid intake. Discharge home today.
[2017-05-02] MEDS: Finasteride 5 MG Tab PO SCH (08:53)
[2017-05-02] MEDS: Docusate Sodium 100 MG Cap PO SCH (08:53)
[2017-05-02] MEDS: Potassium Chloride 10 MEQ Tab.ER PO SCH (08:53)
[2017-05-02] MEDS: Aspirin 325 MG Tab PO SCH (08:53)
[2017-05-02] MEDS: Pramipexole 0.25 MG Tab PO SCH (08:54)
[2017-05-02] MEDS: Furosemide 20 MG Tab PO SCH (08:54)
[2017-05-02] MEDS: oxyCODONE ER 20 MG TAB.ER PO SCH (08:55)
--- NOTE | 2017-05-03 09:04 | PCM.SN ---
- Free Text/Narrative Note: Discharge summary Dressing change prior to discharge. See discharge plan for complete list of discharge medications and instructions. Dictation #: [id number].
--- NOTE | 2017-05-04 03:19 | DISCH ---
DATE OF DISCHARGE: 05/02/2017 PRIMARY CARE PHYSICIAN: Devora Quiroz ADMITTING DIAGNOSIS: Degenerative joint disease, right knee, tricompartmental. OTHER MEDICAL DIAGNOSES: 1. Hypertension. 2. Coronary artery disease. 3. Diabetes mellitus type 2. 4. Benign prostatic hyperplasia. DISCHARGE DIAGNOSES: 1. Status post right total knee arthroplasty. 2. Hypertension. 3. Coronary artery disease. 4. Diabetes mellitus type 2. 5. Benign prostatic hyperplasia. BRIEF HISTORY: The patient is a 71-year-old male, who has had complaint of progressive right knee pain. He has previously undergone a left total knee arthroplasty as well. Due to his lack of response to conservative treatment, surgical intervention was recommended at that time. OPERATION: Right total knee arthroplasty. HOSPITAL COURSE: Pain was controlled with a combination of p.o. and IV pain medications. He was given 2 doses of Ancef postoperatively for 24 hours of antibiotic coverage. He was followed by hospitalist and Physical Therapy during his hospital stay. Upon discharge, the vital signs were stable and he was afebrile. Hemoglobin on the day of discharge is 12.5. Aspirin 325 mg was started on postop day #1 for DVT prophylaxis. Pain is currently controlled with oral pain medications only. He is tolerating oral intake and ambulating with wheeled walker. He feels comfortable with discharge to home today. DISCHARGE MEDICATIONS: 1. OxyContin 20 mg. 2. Oxycodone 5 mg. 3. Colace 100 mg. 4. Aspirin 325 mg. 5. Tylenol 500 mg. DISCHARGE INSTRUCTIONS: 1. Follow up in the clinic on May 11, 2017. This appointment has been made for the patient. 2. Outpatient physical therapy 2 to 3 times per week for 4 to 6 weeks. 3. [facility] to the right knee. 4. JORGE hose to bilateral lower extremities, on in the morning and off in the evening. For a complete medication reconciliation and discharge instructions, please refer to the patient's EHR. If the patient has questions or concerns prior to followup, he may call the clinic. ALIX EGAN /[id number]
== END 2017-05-02 10:45 | disposition home or self-care (01) | DRG 470 ==
LOC: MW.MS 04-30 06:23
PROVIDERS: ADMIT Orthopaedic Surgery; ATTEND Orthopaedic Surgery
PROC: 0SRC0J9 Replacement of Right Knee Joint with Synthetic Substitute, Cemented, Open Approach (ICD-10-PCS; principal; 2017-04-30)
DX: M17.11 Unilateral primary osteoarthritis, right knee (principal); Z68.43 Body mass index [BMI] 50.0-59.9, adult; M94.261 Chondromalacia, right knee; I10 Essential (primary) hypertension; I25.10 Atherosclerotic heart disease of native coronary artery without angina pectoris; E11.9 Type 2 diabetes mellitus without complications; N40.0 Benign prostatic hyperplasia without lower urinary tract symptoms; G20 Parkinson's disease; E66.9 Obesity, unspecified; G47.33 Obstructive sleep apnea (adult) (pediatric); Z79.899 Other long term (current) drug therapy; Z86.79 Personal history of other diseases of the circulatory system; Z99.89 Dependence on other enabling machines and devices
CPT/HCPCS: 01402; 36415; 73560-26-RT; 73560-RT; 80048; 80053; 82962; 83735; 85014; 85018; 85025; 86850; 86900; 86901; 88305; 88311; 97110-GP; 97161-GP; 97530-GP; A9270-GY; C1713; C1776; J0171; J0690; J0735; J1815-GY; J1885; J2250; J2405; J2704; J2795; J3010; J3475; J7050; J7120

== ENCOUNTER 2020-02-28 15:28 | Emergency (ER) | payer MEDICARE, OTHER ==
[2020-02-28] MEDS ORDERED: Sodium Chloride 0.9% 10 ML Syringe FLUSH PRN (15:50)
[2020-02-28] MEDS ORDERED: Sodium Chloride 0.9% 2.5 ML Syringe FLUSH PRN (15:50)
[2020-02-28 16:10] LABS: BLOOD UREA NITROGEN,BUN 31 mg/dL (7.0-18.0); CHLORIDE,CL 97 mmol/L (98-107); GLUCOSE RANDOM 116 mg/dL (74-106); POTASSIUM,K 4.9 mmol/L (3.5-5.1); SODIUM,NA 131 mmol/L (136-148)
[2020-02-28] MEDS ORDERED: Sodium Chloride 0.9% 1,000 ML IV SCH ×3 (16:15→17:00)
--- NOTE | 2020-02-28 16:15 | EDM.PDOC ---
<GonzalesNikita - Last Filed: 02/28/20 20:56> ED HPI GENERAL MEDICAL PROBLEM - General Chief Complaint: Cardiovascular Problem Stated Complaint: DIZZY/LOSS OF BLADDER CONTROL Time Seen by Provider: 02/28/20 15:36 - Related Data Allergies Allergy/AdvReac Type Severity Reaction Status Date / Time No Known Allergies Allergy Verified 02/28/20 15:36 Home Meds: Home Meds Telmisartan 40 mg PO ACBRK 10/24/13 [History] Furosemide 20 mg PO DAILY 04/26/17 [History] Lansoprazole [Prevacid] 30 mg PO BID PRN 04/26/17 [History] Potassium Chloride 10 meq PO DAILY 04/26/17 [History] Atropine/Diphenoxylate [Lomotil 0.025-2.5 MG] 1 tab PO QID PRN 04/30/17 [History] metFORMIN HCl [Metformin HCl ER] 1,000 mg PO BID 04/30/17 [History] Acetaminophen [Tylenol Extra Strength] 1,000 mg PO Q6H #100 tablet 05/02/17 [Rx] Aspirin 1 tab PO DAILY 02/28/20 [History] Gabapentin [Neurontin] 2 tab PO BID 02/28/20 [History] Gabapentin [Neurontin] 4 tab PO BEDTIME 02/28/20 [History] Insulin Glarg,Human.Rec.Analog [Lantus] 20 units SQ BEDTIME 02/28/20 [History] Liraglutide [Victoza] 1.8 mg SQ DAILY 02/28/20 [History] Saxagliptin HCl [Onglyza] 1 tab PO DAILY 02/28/20 [History] Tamsulosin [Flomax] 1 tab PO BEDTIME 02/28/20 [History] Course - Vital Signs Text/Narrative:: Based on the fact that the patient had BUN and creatinine elevation which is new we do not have a community education specialist also and the fact that he has back pain with incontinence yesterday the family requested patient be transferred to somewhere with nephrology and the capability of doing an MRI over the weekend. Discussed with Dr. Tavera at [place] the patient was accepted for transfer. Departure - Departure Disposition: DC/Tfer to [facility] 02 Clinical Impression: Acute renal insufficiency, Dehydration, Hypotension, COVID-19 <Shira Yip - Last Filed: 02/29/20 19:43> ED HPI GENERAL MEDICAL PROBLEM - General Source of Information: Reports: Patient, Family - History of Present Illness INITIAL COMMENTS - FREE TEXT/NARRATIVE: History of present illness: 74-year-old male brought by his daughter for increased confusion, generalized weakness, dizziness, some loss of bladder control and having some chronic low back pain. He is a diabetic. His daughter is worried he may have an infection. On arrival here the patient was hypotensive. Review of systems: As per history of present illness and below otherwise all systems reviewed and negative. Past medical history: As per history of present illness and as reviewed below otherwise noncontributory. Diabetes, Parkinson's Surgical history: As per history of present illness and as reviewed below otherwise noncontributory. Back surgery, hip surgery Social history: No reported history of drug or alcohol abuse. No tobacco Family history: As per history of present illness and as reviewed below otherwise noncontributory. Physical exam: GEN: no acute distress, well appearing HEENT: Atraumatic, normocephalic, mucous membranes slightly dry Neck: supple, nontender, trachea midline. Lungs: No respiratory distress. Heart: RRR Abdomen: Soft, nondistended, nontender. Back: nontender Extremities: Atraumatic. Neurovascularly intact. Neuro: Awake, alert, appears confused and occasionally slow to answer questions, but does have a history of dementia.. Neuro Exam nonfocal. Skin: warm, dry, no lesions Diagnostics: Labs, blood cultures, lactic acid, EKG, chest x-ray, CT brain, UA Therapeutics: IV fluids, O2 MDM: Impression: [] Plan: [] Definitive disposition and diagnosis as appropriate pending reevaluation and review of above. Past Medical History HEENT History: Reports: Allergic Rhinitis, Other (See Below) Other HEENT History: wears glasses, maria c hearing aids Cardiovascular History: Reports: CAD, Cardiomyopathy, High Cholesterol, Hypertension Respiratory History: Reports: Sleep Apnea Other Respiratory History: uses CPAP Gastrointestinal History: Reports: GERD Genitourinary History: Reports: BPH Musculoskeletal History: Reports: Arthritis Neurological History: Reports: Parkinson's Psychiatric History: Reports: Dementia Endocrine/Metabolic History: Reports: Diabetes, Type II, Obesity/BMI 30+ - Infectious Disease History Infectious Disease History: Reports: Chicken Pox - Past Surgical History Head Surgeries/Procedures: Reports: None HEENT Surgical History: Reports: Cataract Surgery Cardiovascular Surgical History: Reports: Other (See Below) Other Cardiovascular Surgeries/Procedures: angiogram (no stents) GI Surgical History: Reports: Bariatric Procedure, Colonoscopy Other GI Surgeries/Procedures: lap band surgery, removal of lap band Neurological Surgical History: Reports: Lumbar Spine Other Neurological Surgeries/Procedures: hx lower back surgery Musculoskeletal Surgical History: Reports: Knee Replacement, Other (See Below) Other Musculoskeletal Surgeries/Procedures:: bilateral TKA, Left Hip replacment Social & Family History - Family History Family Medical History: Unobtainable - Tobacco Use Smoking Status *Q: Never Smoker - Recreational Drug Use Recreational Drug Use: No - Living Situation & Occupation Living situation: Reports: Occupation: Retired ED ROS GENERAL - Review of Systems Review Of Systems: See Below (See HPI) ED EXAM, GENERAL - Physical Exam Exam: See Below (See HPI) EKG INTERPRETATION EKG Interpretation Comments: EKG performed today at 3:43 PM, sinus rhythm, rate 74, Q wave in lead III, nonspecific intraventricular conduction delay. QTC 425. No STEMI. Independently interpreted by me. Course - Vital Signs Text/Narrative:: Patient presenting with dizziness and hypotension. Appears dehydrated and possibly over diuresed. Family concerned about infection, white cell count and lactic acid not elevated and chest x-ray shows no acute pneumonia although the patient has been unable to produce urine while here. COVID swab did come back positive. Creatinine does appear acutely elevated and family not certain of prior baseline but does appear elevated compared to prior records in our system. Patient had mild hypoxia on arrival here and was given oxygen, however during ER visit it was able to be weaned off. Patient will be admitted. Discussed this with the patient and daughter at the bedside and they agree with the plan. Last Recorded V/S: Last Vital Signs Temp 96.8 F L 02/28/20 15:33 Pulse 92 02/28/20 21:13 Resp 20 02/28/20 21:13 BP 118/65 02/28/20 21:13 Pulse Ox 95 02/28/20 21:13 - Orders/Labs/Meds Labs: Laboratory Tests 02/28/20 02/28/20 02/28/20 Range/Units 15:38 15:38 15:39 WBC 9.74 (4.0-11.0) K/uL RBC 4.08 L (4.50-5.90) M/uL Hgb 12.0 L (13.0-17.0) g/dL Hct 35.6 L (38.0-50.0) % MCV 87.3 (80.0-98.0) fL MCH 29.4 (27.0-32.0) pg MCHC 33.7 (31.0-37.0) g/dL RDW Std Deviation 43.5 (28.0-62.0) fl RDW Coeff of Maria Dolores 14 (11.0-15.0) % Plt Count 198 (150-400) K/uL MPV 9.50 (7.40-12.00) fL Add Manual Diff YES Neutrophils % (Manual) 73 (48.0-80.0) % Band Neutrophils % 3 % Lymphocytes % (Manual) 20 (16.0-40.0) % Monocytes % (Manual) 4 (0.0-15.0) % Absolute Seg Neuts 7.1 H (1.4-5.7) Band Neutrophils # 0.3 Lymphocytes # (Manual) 1.9 (0.6-2.4) Monocytes # (Manual) 0.4 (0.0-0.8) Lactate (0.20-2.00) mmol/L Sodium 131 L (136-148) mmol/L Potassium 4.9 (3.5-5.1) mmol/L Chloride 97 L (98-107) mmol/L Carbon Dioxide 21.0 (21.0-32.0) mmol/L BUN 31 H (7.0-18.0) mg/dL Creatinine 2.2 H (0.8-1.3) mg/dL Est Cr Clr Drug Dosing 28.07 mL/min Estimated GFR (MDRD) 29.3 ml/min Glucose 116 H (74-106) mg/dL POC Glucose 110 (60-110) mg/dL Calcium 8.0 L (8.5-10.1) mg/dL Total Bilirubin 0.6 (0.2-1.0) mg/dL AST 31 (15-37) IU/L ALT 24 (14-63) IU/L Alkaline Phosphatase 81 (46-116) U/L Troponin I < 0.050 (0.000-0.056) ng/mL Total Protein 7.0 (6.4-8.2) g/dL Albumin 3.4 (3.4-5.0) g/dL Globulin 3.6 (2.6-4.0) g/dL Albumin/Globulin Ratio 0.9 (0.9-1.6) COVID-19 (LUIS) (NEGATIVE) 02/28/20 02/28/20 Range/Units 16:12 19:40 WBC (4.0-11.0) K/uL RBC (4.50-5.90) M/uL Hgb (13.0-17.0) g/dL Hct (38.0-50.0) % MCV (80.0-98.0) fL MCH (27.0-32.0) pg MCHC (31.0-37.0) g/dL RDW Std Deviation (28.0-62.0) fl RDW Coeff of Maria Dolores (11.0-15.0) % Plt Count (150-400) K/uL MPV (7.40-12.00) fL Add Manual Diff Neutrophils % (Manual) (48.0-80.0) % Band Neutrophils % % Lymphocytes % (Manual) (16.0-40.0) % Monocytes % (Manual) (0.0-15.0) % Absolute Seg Neuts (1.4-5.7) Band Neutrophils # Lymphocytes # (Manual) (0.6-2.4) Monocytes # (Manual) (0.0-0.8) Lactate 1.4 (0.20-2.00) mmol/L Sodium (136-148) mmol/L Potassium (3.5-5.1) mmol/L Chloride (98-107) mmol/L Carbon Dioxide (21.0-32.0) mmol/L BUN (7.0-18.0) mg/dL Creatinine (0.8-1.3) mg/dL Est Cr Clr Drug Dosing mL/min Estimated GFR (MDRD) ml/min Glucose (74-106) mg/dL POC Glucose (60-110) mg/dL Calcium (8.5-10.1) mg/dL Total Bilirubin (0.2-1.0) mg/dL AST (15-37) IU/L ALT (14-63) IU/L Alkaline Phosphatase (46-116) U/L Troponin I (0.000-0.056) ng/mL Total Protein (6.4-8.2) g/dL Albumin (3.4-5.0) g/dL Globulin (2.6-4.0) g/dL Albumin/Globulin Ratio (0.9-1.6) COVID-19 (LUIS) POSITIVE H (NEGATIVE) Meds: Medications Discontinued Medications Generic Name Dose Route Start Last Admin Trade Name Reuben PRN Reason Stop Dose Admin Dexamethasone 8 mg 02/28/20 20:13 Dexamethasone IVPUSH 02/28/20 20:14 ONETIME ONE Sodium Chloride 1,000 mls @ 999 mls/hr 02/28/20 16:15 02/28/20 16:18 Normal Saline IV 999 mls/hr ASDIRECTED LIBIA Administration Sodium Chloride 1,000 mls @ 999 mls/hr 02/28/20 16:45 02/28/20 16:40 Normal Saline IV 999 mls/hr ASDIRECTED LIBIA Administration Sodium Chloride 1,000 mls @ 999 mls/hr 02/28/20 17:00 Normal Saline IV ASDIRECTED LIBIA Sodium Chloride 10 ml 02/28/20 15:50 02/28/20 16:19 Saline Flush FLUSH 10 ml ASDIRECTED PRN Administration Keep Vein Open Sodium Chloride 2.5 ml 02/28/20 15:50 02/28/20 16:19 Saline Flush FLUSH 2.5 ml ASDIRECTED PRN Administration Keep Vein Open - Re-Assessments/Exams Free Text/Narrative Re-Assessment/Exam: 02/28/20 19:23 Patient reassessed. Apparently he was unable to stand and provide a urine as he felt too unsteady and weak and had some increased shaking. He still does not feel any urge to produce urine. I did discuss with the patient and his daughter at the bedside results from work-up here today including creatinine elevation which does appear acute. They have never heard of any prior renal insufficiency and therefore we do suspect this is acute. His blood pressure is improved now in the 90s. Will admit the patient. They agree with this plan. 02/28/20 19:52 Dr. Hester called back, agrees with plan for admission, request to make the patient inpatient, telemetry. 02/28/20 20:09 COVID swab came back positive. I did call Dr. Hester to discuss. The patient had previously been on 2 L of O2. However we did remove the oxygen to attempt to wean him. His oxygen saturation on 2 L of O2 was 97%. On room air the patient is 93 to 95%. Therefore will defer redesmivir treatment at this time but per discussion with Dr. Hester will give dexamethasone. Departure - Departure Time of Disposition: 19:24 Reason for Transfer *Q: Other (N/A) Sepsis Event Note (ED) - Evaluation Sepsis Screening Result: No Definite Risk
--- NOTE | 2020-02-28 17:51 | CR ---
INDICATION: Dizziness, weakness TECHNIQUE: Chest radiograph 1 view COMPARISON: 02/12/2017 FINDINGS: Severe degradation of image quality noted due to body habitus. Mediastinum: The mediastinum is normal in appearance. The heart silhouette is normal in size and morphology. Lung: Both lungs are unremarkable in appearance with small lung volumes. No sign of pleural effusion seen. No pneumothorax is identified. Bone and Soft tissue: Unremarkable for age. IMPRESSION: 1. No acute cardiopulmonary disease is seen. Dictated by: Praful Bradford MD @ 02/28/2020 17:50:57 (Electronically Signed)
--- NOTE | 2020-02-28 17:54 | CT ---
INDICATION: Dizziness. Weakness. TECHNIQUE: CT head without IV contrast. FINDINGS: Minimal mucosal thickening in the paranasal sinuses particularly in the left frontal/ethmoidal and maxillary sinuses. Mild atherosclerotic vascular calcifications. No intracranial hemorrhage, edema, or mass effect. Mild cerebral atrophy. Minimal cerebellar atrophy. Small amount of increased density focally in the left frontal scalp anteriorly could be related to prior trauma. Remainder negative. IMPRESSION: 1. No acute intracranial disease. 2. Chronic intracranial findings as above. 3. Minimal inflammatory changes in the paranasal sinuses. Please note that all CT scans at this facility use dose modulation, iterative reconstruction, and/or weight-based dosing when appropriate to reduce radiation dose to as low as reasonably achievable. Dictated by Vance Baeza MD @ Feb 28 2020 5:49PM Signed by Dr. Vance Baeza @ Feb 28 2020 5:53PM
[2020-02-28] MEDS ORDERED: Dexamethasone 10 MG/ML SDV IVPUSH ONE (20:13)
== END 2020-02-28 22:11 ==
LOC: MW.ED 15:28 → MW.MS 19:57 → UNDOADMIN 19:57 → UNDODISIN 22:10
DX: U07.1 COVID-19 (principal); N28.9 Disorder of kidney and ureter, unspecified; E86.0 Dehydration; I42.9 Cardiomyopathy, unspecified; E11.9 Type 2 diabetes mellitus without complications; I95.9 Hypotension, unspecified; I25.10 Atherosclerotic heart disease of native coronary artery without angina pectoris; E78.00 Pure hypercholesterolemia, unspecified; I10 Essential (primary) hypertension; G47.30 Sleep apnea, unspecified; J30.9 Allergic rhinitis, unspecified; H91.93 Unspecified hearing loss, bilateral; K21.9 Gastro-esophageal reflux disease without esophagitis; N40.0 Benign prostatic hyperplasia without lower urinary tract symptoms; N40.1 Benign prostatic hyperplasia with lower urinary tract symptoms; R32 Unspecified urinary incontinence; M19.90 Unspecified osteoarthritis, unspecified site; G20 Parkinson's disease; E66.9 Obesity, unspecified; Z68.41 Body mass index [BMI] 40.0-44.9, adult; Z98.49 Cataract extraction status, unspecified eye; Z98.84 Bariatric surgery status; Z96.653 Presence of artificial knee joint, bilateral; Z96.642 Presence of left artificial hip joint; Z79.82 Long term (current) use of aspirin; Z79.4 Long term (current) use of insulin; Z79.899 Other long term (current) drug therapy
CPT/HCPCS: 51702; 70450; 71045; 80053; 81001; 82962; 83605; 84484; 85025; 87040; 93005; 96361; 96374; 99285; J7030; U0002; 93010

== ENCOUNTER 2020-12-25 11:59 | Emergency (ER) | payer MEDICARE, OTHER ==
[2020-12-25] MEDS ORDERED: Ketorolac 30 MG/ML SDV IM STA (12:49)
--- NOTE | 2020-12-25 13:00 | EDM.PDOC ---
ED HPI GENERAL MEDICAL PROBLEM - General Chief Complaint: Back Pain or Injury Stated Complaint: BACK PAIN Time Seen by Provider: 12/25/20 12:12 Source of Information: Reports: Patient History Limitations: Reports: No Limitations - History of Present Illness INITIAL COMMENTS - FREE TEXT/NARRATIVE: Patient is a 75-year-old male who presents today for back pain. Patient had this pain for the past month and has received narcotics muscle relaxers and lidocaine patch from previous providers. Patient was to have a hip replacement in April but cannot have the procedure due to elevation of his A1c and the procedure had to be postponed. She says at times been having increased pain. Patient says he sits around most of the day and only has get up to urinate. Patient states that his meds he has now are not treating his pain. Patient denies any urinary incontinence leg weakness or saddle anesthesia. Patient denies any nausea or vomiting fever chills or other complaints. back Pain Score (Numeric/FACES): 10 - Related Data Allergies Allergy/AdvReac Type Severity Reaction Status Date / Time No Known Allergies Allergy Verified 12/25/20 12:33 Home Meds: Home Meds Telmisartan 40 mg PO ACBRK 10/24/13 [History] Furosemide 20 mg PO DAILY 04/26/17 [History] Lansoprazole [Prevacid] 30 mg PO BID PRN 04/26/17 [History] Potassium Chloride 10 meq PO DAILY 04/26/17 [History] Atropine/Diphenoxylate [Lomotil 0.025-2.5 MG] 1 tab PO QID PRN 04/30/17 [History] metFORMIN HCl [Metformin HCl ER] 1,000 mg PO BID 04/30/17 [History] Acetaminophen [Tylenol Extra Strength] 1,000 mg PO Q6H #100 tablet 05/02/17 [Rx] Aspirin 1 tab PO DAILY 02/28/20 [History] Gabapentin [Neurontin] 2 tab PO BID 02/28/20 [History] Gabapentin [Neurontin] 4 tab PO BEDTIME 02/28/20 [History] Insulin Glarg,Human.Rec.Analog [Lantus] 20 units SQ BEDTIME 02/28/20 [History] Liraglutide [Victoza] 1.8 mg SQ DAILY 02/28/20 [History] Saxagliptin HCl [Onglyza] 1 tab PO DAILY 02/28/20 [History] Tamsulosin [Flomax] 1 tab PO BEDTIME 02/28/20 [History] Past Medical History HEENT History: Reports: Allergic Rhinitis, Other (See Below) Other HEENT History: wears glasses, maria c hearing aids Cardiovascular History: Reports: CAD, Cardiomyopathy, High Cholesterol, Hypertension Respiratory History: Reports: Sleep Apnea Other Respiratory History: uses CPAP Gastrointestinal History: Reports: GERD Genitourinary History: Reports: BPH Musculoskeletal History: Reports: Arthritis Neurological History: Reports: Parkinson's Psychiatric History: Reports: Dementia Endocrine/Metabolic History: Reports: Diabetes, Type II, Obesity/BMI 30+ - Infectious Disease History Infectious Disease History: Reports: Chicken Pox, Shingles - Past Surgical History Head Surgeries/Procedures: Reports: None HEENT Surgical History: Reports: Cataract Surgery Cardiovascular Surgical History: Reports: Other (See Below) Other Cardiovascular Surgeries/Procedures: angiogram (no stents) GI Surgical History: Reports: Bariatric Procedure, Colonoscopy Other GI Surgeries/Procedures: lap band surgery, removal of lap band Neurological Surgical History: Reports: Lumbar Spine Other Neurological Surgeries/Procedures: hx lower back surgery Musculoskeletal Surgical History: Reports: Knee Replacement, Other (See Below) Other Musculoskeletal Surgeries/Procedures:: bilateral TKA, Left Hip replacment Social & Family History - Family History Family Medical History: Unobtainable - Living Situation & Occupation Living situation: Reports: Occupation: Retired ED ROS GENERAL - Review of Systems Review Of Systems: See Below Constitutional: Reports: No Symptoms HEENT: Reports: No Symptoms Respiratory: Reports: No Symptoms Cardiovascular: Reports: No Symptoms Endocrine: Reports: No Symptoms GI/Abdominal: Reports: No Symptoms : Reports: No Symptoms Musculoskeletal: Reports: Back Pain Skin: Reports: No Symptoms Neurological: Reports: No Symptoms Psychiatric: Reports: No Symptoms Hematologic/Lymphatic: Reports: No Symptoms Immunologic: Reports: No Symptoms ED EXAM,LOWER BACK PAIN/INJURY - Physical Exam Exam: See Below Exam Limited By: No Limitations General Appearance: Alert, WD/WN Eye Exam: Bilateral Eye: EOMI, PERRL Respiratory/Chest: No Respiratory Distress, Lungs Clear, Normal Breath Sounds Cardiovascular: Normal Peripheral Pulses, Regular Rate, Rhythm GI/Abdominal: Normal Bowel Sounds, Soft, Non-Tender Back Exam: Normal Inspection, Muscle Spasm, Vertebral Tenderness. No: Full Range of Motion Extremities: Normal Inspection, Normal Range of Motion Neurological: Alert, Normal Mood/Affect Course - Vital Signs Last Recorded V/S: Last Vital Signs Temp 96.7 F L 12/25/20 13:44 Pulse 87 12/25/20 13:44 Resp 20 12/25/20 13:44 BP 129/87 12/25/20 13:44 Pulse Ox 93 L 12/25/20 13:44 - Orders/Labs/Meds Labs: Laboratory Tests 12/25/20 Range/Units 13:50 Urine Color YELLOW Urine Appearance CLEAR Urine pH 6.0 (5.0-8.0) Ur Specific [place] 1.020 (1.001-1.035) Urine Protein NEGATIVE (NEGATIVE) mg/dL Urine Glucose (UA) NEGATIVE (NEGATIVE) mg/dL Urine Ketones NEGATIVE (NEGATIVE) mg/dL Urine Occult Blood NEGATIVE (NEGATIVE) Urine Nitrite NEGATIVE (NEGATIVE) Urine Bilirubin NEGATIVE (NEGATIVE) Urine Urobilinogen 0.2 (<2.0) EU/dL Ur Leukocyte Esterase TRACE H (NEGATIVE) Urine RBC 0-1 (0-2/HPF) Urine WBC 0-2 (0-5/HPF) Ur Epithelial Cells RARE (NONE-FEW) Urine Bacteria NOT SEEN (NEGATIVE) Meds: Medications Discontinued Medications Generic Name Dose Route Start Last Admin Trade Name Freq PRN Reason Stop Dose Admin Ketorolac Tromethamine 30 mg 12/25/20 12:49 12/25/20 12:59 Ketorolac 30 Mg/Ml Sdv IM 12/25/20 12:50 30 mg NOW STA Administration - Re-Assessments/Exams Free Text/Narrative Re-Assessment/Exam: 12/25/20 14:32 Patient's pain slightly improved with Toradol CT scan show some nerve impingement. Patient has no cord compression symptoms is urinary incontinence leg weakness. Patient will be discharged home she has appointment to follow-up with Ortho for his upcoming hip surgery. Departure - Departure Time of Disposition: 14:33 Disposition: Home, Self-Care 01 Condition: Good Clinical Impression: Radiculopathy due to lumbar intervertebral disc disorder - Discharge Information *PRESCRIPTION DRUG MONITORING PROGRAM REVIEWED*: Not Applicable *COPY OF PRESCRIPTION DRUG MONITORING REPORT IN PATIENT DAVID: Not Applicable Instructions: Chronic Back Pain, [id number] Referrals: Breanna Love MD [Primary Care Provider] - Forms: ED Department Discharge Additional Instructions: The following information is given to patients seen in the emergency department who are being discharged to home. This information is to outline your options for follow-up care. We provide all patients seen in our emergency department with a follow-up referral. The need for follow-up, as well as the timing and circumstances, are variable depending upon the specifics of your emergency department visit. If you don't have a primary care physician on staff, we will provide you with a referral. We always advise you to contact your personal physician following an emergency department visit to inform them of the circumstance of the visit and for follow-up with them and/or the need for any referrals to a consulting specialist. The emergency department will also refer you to a specialist when appropriate. This referral assures that you have the opportunity for follow-up care with a specialist. All of these measure are taken in an effort to provide you with optimal care, which includes your follow-up. Under all circumstances we always encourage you to contact your private physician who remains a resource for coordinating your care. When calling for follow-up care, please make the office aware that this follow-up is from your recent emergency room visit. If for any reason you are refused follow-up, please contact the [facility] Emergency Department at and asked to speak to the emergency department charge nurse. Please follow up with your primary care physician. If you do not have a primary care physician, see below: [facility] [address] [place] [id number] [facility] [address] [place] [id number] You were seen today for back pain that you have had for the past month. You are already on narcotics and muscle relaxers. These are the pain meds we would normally prescribe you and since you are already on them we do not have any additional medications to add to your regimen. You currently also have lidocaine patch on as well. We can recommend is that we can give you some back strengthening exercises and recommended you follow-up with physical therapy. He also have appointment to follow-up with orthopedist that we recommend you keep. You do not have any signs or symptoms of any cord compression but we discussed if you have any difficulty urinating leg weakness or numbness or numbness in your tailbone area please return to ED immediately. Otherwise please follow with your primary care physician. Sepsis Event Note (ED) - Evaluation Sepsis Screening Result: No Definite Risk - Focused Exam Vital Signs: Vital Signs Temp Pulse Resp BP Pulse Ox 12/25/20 13:44 96.7 F L 87 20 129/87 93 L 12/25/20 12:34 96.4 F L 87 18 115/82 95 - Assessment/Plan Plan: Patient is a 5-year-old male presents today for chronic low back pain. Patient is tried multiple medications without relief. Will obtain imaging UA and reassess patient.
--- NOTE | 2020-12-25 14:03 | CT ---
For Patients: As a result of the Century Cures Act, medical imaging exams and procedure reports are released immediately into your electronic medical record. You may view this report before your referring provider. If you have questions, please contact your health care provider. INDICATION: Chronic back pain. TECHNIQUE: Noncontrast axial images of the lumbar spine with sagittal and coronal reconstructions. COMPARISON: None provided. FINDINGS: There is a mild rightward curvature of the lumbar spine. There is minimal anterolisthesis at L4-5, and minimal retrolisthesis at L3-4 and L5-S1. No compression fracture is identified. Evaluation of the spinal contents is suboptimal on this exam. Within these limitations, findings at the intervertebral levels are as follows: At L1-2, there is relative preservation of the disc height, with no appreciable disc protrusion or extrusion. Mild to moderate facet arthrosis. No significant spinal or foraminal stenosis. At L2-3, there is mild circumferential disc bulge with minimal disc height loss. Moderate to advanced facet arthrosis. There is at mild to moderate narrowing of the central spinal canal with mild narrowing of both neural foramen. At L3-4, there is mild circumferential disc bulging with an apparent small posterior right paracentral disc protrusion, which results in both central spinal and right lateral recess stenosis. There is also bilateral neural foraminal narrowing. Mild facet arthrosis. At L4-5, there is mild circumferential disc bulge with minor disc height loss. Severe facet arthrosis is noted. Combination of these findings results in at least moderate spinal stenosis and moderate to severe neural foraminal narrowing, right worse than left. At L5-S1, there has been prior posterior decompression. Circumferential disc bulging is noted with moderate disc height loss. Moderate to advanced facet arthrosis. Severe bilateral foraminal stenosis. Left total hip arthroplasty is partially visualized. Severe right hip arthritis. Bilateral sacral iliac joint arthritis. IMPRESSION: 1. Lumbar spondylosis with postsurgical changes at the L5-S1 level. There is multilevel spinal and neural foramen stenosis as noted above. There also appears to be a right posterior paracentral disc protrusion at L3-4, which is suboptimally assessed on this study. If clinically indicated, these findings could be further assessed with MRI. 2. No acute bony abnormality is identified. 3. Other findings as noted. Dictated by Larry Stoddard MD @ 12/25/2020 2:00:02 PM Please note that all CT scans at this facility use dose modulation, iterative reconstruction, and/or weight-based dosing when appropriate to reduce radiation dose to as low as reasonably achievable. Dictated by: Larry Stoddard MD @ 12/25/2020 14:01:10 (Electronically Signed)
== END 2020-12-25 14:45 | disposition home or self-care (01) ==
LOC: MW.ED 11:59
DX: M51.16 Intervertebral disc disorders with radiculopathy, lumbar region (principal); I25.10 Atherosclerotic heart disease of native coronary artery without angina pectoris; E78.00 Pure hypercholesterolemia, unspecified; I11.9 Hypertensive heart disease without heart failure; K21.9 Gastro-esophageal reflux disease without esophagitis; E11.9 Type 2 diabetes mellitus without complications; E66.9 Obesity, unspecified; Z79.82 Long term (current) use of aspirin; Z79.4 Long term (current) use of insulin; Z79.899 Other long term (current) drug therapy; Z68.42 Body mass index [BMI] 45.0-49.9, adult
CPT/HCPCS: 72131; 81001; 96372; 99284; J1885

== ENCOUNTER 2021-01-17 12:11 | Inpatient (IN) | payer MEDICARE, OTHER ==
[2021-01-17] MEDS ORDERED: Sodium Chloride 0.9% 10 ML Syringe FLUSH PRN (12:18)
--- NOTE | 2021-01-17 12:22 | EDM.PDOC ---
ED HPI GENERAL MEDICAL PROBLEM - General Chief Complaint: Neuro Symptoms/Deficits Stated Complaint: REFFERAL Time Seen by Provider: 01/17/21 12:13 Source of Information: Reports: Patient, Family History Limitations: Reports: No Limitations - History of Present Illness INITIAL COMMENTS - FREE TEXT/NARRATIVE: 75-year-old male past medical history CAD, hypertension, obesity, CHF, past history of Covid infection, insulin-dependent diabetes presents for generalized weakness, low blood pressure, dizziness, difficulty with word finding. History is from patient and his . Symptoms started roughly 5 hours ago. Patient was complaining to his of some shortness of breath, dizziness. She noted that he seemed "off" and slow. She took his blood pressure and noted it to be 70s over 40s prompting her to call his physician who recommended coming to the emergency department. She notes that his blood sugars have been in the low 100s. Patient does note some shortness of breath and admits difficulty with word finding. He is otherwise a very poor historian. - Related Data Allergies Allergy/AdvReac Type Severity Reaction Status Date / Time No Known Allergies Allergy Verified 01/17/21 20:29 Home Meds: Home Meds Telmisartan 40 mg PO DAILY 10/24/13 [History] Furosemide 40 mg PO DAILY 04/26/17 [History] Lansoprazole [Prevacid] 30 mg PO BID PRN 04/26/17 [History] Potassium Chloride 10 meq PO DAILY 04/26/17 [History] Atropine/Diphenoxylate [Lomotil 0.025-2.5 MG] 1 tab PO QID PRN 04/30/17 [Hi story] metFORMIN HCl [Metformin HCl ER] 1,000 mg PO QPM 04/30/17 [History] Acetaminophen [Tylenol Extra Strength] 1,000 mg PO Q6H #100 tablet 05/02/17 [Rx] Aspirin 1 tab PO DAILY 02/28/20 [History] Gabapentin [Neurontin] 2 tab PO DAILY 02/28/20 [History] Gabapentin [Neurontin] 4 tab PO BEDTIME 02/28/20 [History] Insulin Glarg,Human.Rec.Analog [Lantus] 22 units SQ BEDTIME 02/28/20 [History] Liraglutide [Victoza] 1.8 mg SQ DAILY 02/28/20 [History] Saxagliptin HCl [Onglyza] 1 tab PO DAILY 02/28/20 [History] Tamsulosin [Flomax] 1 tab PO BEDTIME 02/28/20 [History] Semaglutide [Ozempic] 1.34 mg SUBCUT WEEKLY 01/17/21 [History] Spironolactone [Aldactone] 25 mg PO DAILY 01/17/21 [History] metFORMIN [Glucophage] 500 mg PO DAILY 01/17/21 [History] Past Medical History HEENT History: Reports: Allergic Rhinitis, Other (See Below) Other HEENT History: wears glasses, maria c hearing aids Cardiovascular History: Reports: CAD, Cardiomyopathy, High Cholesterol, Hypertension Respiratory History: Reports: Sleep Apnea Other Respiratory History: uses CPAP Gastrointestinal History: Reports: GERD Genitourinary History: Reports: BPH Musculoskeletal History: Reports: Arthritis Neurological History: Reports: Parkinson's Psychiatric History: Reports: Dementia Endocrine/Metabolic History: Reports: Diabetes, Type II, Obesity/BMI 30+ - Infectious Disease History Infectious Disease History: Reports: Chicken Pox, Shingles - Past Surgical History Head Surgeries/Procedures: Reports: None HEENT Surgical History: Reports: Cataract Surgery Cardiovascular Surgical History: Reports: Other (See Below) Other Cardiovascular Surgeries/Procedures: angiogram (no stents) GI Surgical History: Reports: Bariatric Procedure, Colonoscopy Other GI Surgeries/Procedures: lap band surgery, removal of lap band Neurological Surgical History: Reports: Lumbar Spine Other Neurological Surgeries/Procedures: hx lower back surgery Musculoskeletal Surgical History: Reports: Knee Replacement, Other (See Below) Other Musculoskeletal Surgeries/Procedures:: bilateral TKA, Left Hip replacment Social & Family History - Family History Family Medical History: Unobtainable - Living Situation & Occupation Living situation: Reports: Occupation: Retired ED ROS GENERAL - Review of Systems Review Of Systems: Comprehensive ROS is negative, except as noted in HPI. ED EXAM, GENERAL - Physical Exam Exam: See Below Exam Limited By: No Limitations General Appearance: Alert, WD/WN, No Apparent Distress Ears: Hearing Grossly Normal Throat/Mouth: Normal Voice, No Airway Compromise Head: Atraumatic, Normocephalic Neck: Normal Inspection Respiratory/Chest: No Respiratory Distress, Lungs Clear, Normal Breath Sounds, No Accessory Muscle Use Cardiovascular: Normal Peripheral Pulses, Regular Rate, Rhythm GI/Abdominal: Soft, Non-Tender Extremities: Normal Inspection, No Pedal Edema Neurological: Alert, Oriented, No Motor/Sensory Deficits, Other (very mild right sided facial droop; no slurred speech but does have difficulty with word finding; AAOx4 but could not recall current president) Psychiatric: Normal Affect, Normal Mood Skin Exam: Warm, Dry, Intact, Normal Color Course - Vital Signs Last Recorded V/S: Last Vital Signs Temp 97.1 F 01/18/21 07:13 Pulse 60 01/18/21 07:13 Resp 16 01/18/21 07:13 BP 105/65 01/18/21 07:13 Pulse Ox 96 01/18/21 07:13 - Orders/Labs/Meds Orders: Active Orders 24 hr Category Date Time Status Cardiac Monitoring [RC] . DIRECTED Care 01/17/21 12:19 Active EKG Documentation Completion [RC] STAT Care 01/17/21 12:18 Active Pulse Oximetry [RC] ASDIRECTED Care 01/17/21 12:19 Active CULTURE BLOOD [BC] Stat Lab 01/17/21 12:17 Received CULTURE BLOOD [BC] Stat Lab 01/17/21 12:21 Results Sodium Chloride 0.9% [Saline Flush] Med 01/17/21 12:18 Active 10 ml FLUSH ASDIRECTED PRN Sodium Chloride 0.9% [Saline Flush] Med 01/17/21 12:18 Active 2.5 ml FLUSH ASDIRECTED PRN Blood Culture x2 Reflex Set [OM.PC] Stat Oth 01/17/21 13:00 Ordered Saline Lock Insert [OM.PC] Stat Oth 01/17/21 12:18 Ordered Medication Orders Albuterol/Ipratropium (Albuterol/Ipratropium 3.0-0.5 Mg/3 Ml Neb Soln) 3 ml NEB Q4HRRT PRN PRN Reason: Shortness Of Breath/wheezing Dextrose/Water (50% Dextrose In Water 50 Ml Syringe) 50 ml IVPUSH ASDIRECTED PRN PRN Reason: Hypoglycemia Enoxaparin Sodium (Enoxaparin 40 Mg/0.4 Ml Syringe) 40 mg SUBCUT Q24H [facility]IA Last Admin: 01/17/21 20:29 Dose: 40 mg Documented by: SAMANTHA Gabapentin (Gabapentin 300 Mg Cap) 1,200 mg PO BEDTIME LIBIA Last Admin: 01/17/21 20:45 Dose: 1,200 mg Documented by: SAMANTHA Gabapentin (Gabapentin 300 Mg Cap) 600 mg PO BID@0900,1200 [facility] Glucagon (Glucagon,Human Recombinant 1 Mg Vial) 1 mg IM ASDIRECTED PRN PRN Reason: Hypoglycemia Piperacillin Sod/Tazobactam (Sod 3.375 gm/ Sodium Chloride) 50 mls @ 100 mls/hr IV Q6H [facility] Last Admin: 01/18/21 01:37 Dose: 100 mls/hr Documented by: Infusion: 01/17/21 20:59 Dose: 100 mls/hr Documented by: Admin: 01/17/21 20:29 Dose: 100 mls/hr Documented by: SAMANTHA Insulin Aspart (Insulin Aspart 100 Units/Ml 3 Ml Pen) 0 unit SUBCUT TIDAC [facility]; Protocol Last Admin: 01/18/21 07:15 Dose: Not Given Documented by: JON Insulin Glargine (Insulin Glargine,Human Rec. Analog 100 Units/Ml 3 Ml Pen) 20 units SUBCUT BEDTIME [facility] Last Admin: 01/17/21 20:43 Dose: 20 units Documented by: SAMANTHA Pantoprazole Sodium (Pantoprazole 40 Mg Tab.Cr) 40 mg PO ACBREAKFAST [facility] Polyethylene Glycol (Polyethylene Glycol 3350 Powder 17 Gm Packet) 17 gm PO DAILY PRN PRN Reason: Constipation Sodium Chloride (Sodium Chloride 0.9% 10 Ml Syringe) 10 ml FLUSH ASDIRECTED PRN PRN Reason: Keep Vein Open Last Admin: 01/17/21 14:05 Dose: 10 ml Documented by: PAUL Sodium Chloride (Sodium Chloride 0.9% 2.5 Ml Syringe) 2.5 ml FLUSH ASDIRECTED PRN PRN Reason: Keep Vein Open Last Admin: 01/17/21 14:04 Dose: 2.5 ml Documented by: PAUL Labs: Laboratory Tests 01/17/21 01/17/21 01/17/21 Range/Units 12:17 12:17 12:17 WBC 17.08 H (4.0-11.0) K/uL RBC 4.93 (4.50-5.90) M/uL Hgb 14.9 (13.0-17.0) g/dL Hct 42.3 (38.0-50.0) % MCV 85.8 (80.0-98.0) fL MCH 30.2 (27.0-32.0) pg MCHC 35.2 (31.0-37.0) g/dL RDW Std Deviation 42.0 (28.0-62.0) fl RDW Coeff of Maria Dolores 13 (11.0-15.0) % Plt Count 325 (150-400) K/uL MPV 9.30 (7.40-12.00) fL Neut % (Auto) 76.2 (48.0-80.0) % Lymph % (Auto) 15.6 L (16.0-40.0) % [place] % (Auto) 7.0 (0.0-15.0) % Eos % (Auto) 0.8 (0.0-7.0) % Baso % (Auto) 0.4 (0.0-1.5) % Neut # (Auto) 13.0 H (1.4-5.7) K/uL Lymph # (Auto) 2.7 H (0.6-2.4) K/uL [place]oun # (Auto) 1.2 H (0.0-0.8) K/uL Eos # (Auto) 0.1 (0.0-0.7) K/uL Baso # (Auto) 0.1 (0.0-0.1) K/uL Nucleated RBC % 0.0 /100WBC Nucleated RBCs # 0 K/uL INR APTT (18.6-31.3) SEC Sodium 133 L (136-148) mmol/L Potassium 4.5 (3.5-5.1) mmol/L Chloride 98 (98-107) mmol/L Carbon Dioxide 19.8 L (21.0-32.0) mmol/L BUN 32 H (7.0-18.0) mg/dL Creatinine 2.1 H (0.8-1.3) mg/dL Est Cr Clr Drug Dosing TNP Estimated GFR (MDRD) 30.9 ml/min Glucose 134 H (74-106) mg/dL Lactic Acid 3.9 H* (0.4-2.0) mmol/L Calcium 8.8 (8.5-10.1) mg/dL Magnesium 1.8 (1.8-2.4) mg/dL Total Bilirubin 0.4 (0.2-1.0) mg/dL AST 18 (15-37) IU/L ALT 23 (14-63) IU/L Alkaline Phosphatase 118 H (46-116) U/L Troponin I < 0.050 (0.000-0.056) ng/mL B-Natriuretic Peptide (<100) PG/ML Total Protein 7.4 (6.4-8.2) g/dL Albumin 4.1 (3.4-5.0) g/dL Globulin 3.3 (2.6-4.0) g/dL Albumin/Globulin Ratio 1.2 (0.9-1.6) TSH, Ultra Sensitive 0.38 (0.36-3.74) uIU/mL Urine Color Urine Appearance Urine pH (5.0-8.0) Ur Specific [place] (1.001-1.035) Urine Protein (NEGATIVE) mg/dL Urine Glucose (UA) (NEGATIVE) mg/dL Urine Ketones (NEGATIVE) mg/dL Urine Occult Blood (NEGATIVE) Urine Nitrite (NEGATIVE) Urine Bilirubin (NEGATIVE) Urine Urobilinogen (<2.0) EU/dL Ur Leukocyte Esterase (NEGATIVE) 01/17/21 01/17/21 01/17/21 Range/Units 12:17 12:17 15:34 WBC (4.0-11.0) K/uL RBC (4.50-5.90) M/uL Hgb (13.0-17.0) g/dL Hct (38.0-50.0) % MCV (80.0-98.0) fL MCH (27.0-32.0) pg MCHC (31.0-37.0) g/dL RDW Std Deviation (28.0-62.0) fl RDW Coeff of Maria Dolores (11.0-15.0) % Plt Count (150-400) K/uL MPV (7.40-12.00) fL Neut % (Auto) (48.0-80.0) % Lymph % (Auto) (16.0-40.0) % [place]oun % (Auto) (0.0-15.0) % Eos % (Auto) (0.0-7.0) % Baso % (Auto) (0.0-1.5) % Neut # (Auto) (1.4-5.7) K/uL Lymph # (Auto) (0.6-2.4) K/uL [place]oun # (Auto) (0.0-0.8) K/uL Eos # (Auto) (0.0-0.7) K/uL Baso # (Auto) (0.0-0.1) K/uL Nucleated RBC % /100WBC Nucleated RBCs # K/uL INR 1.00 APTT 25.2 (18.6-31.3) SEC Sodium (136-148) mmol/L Potassium (3.5-5.1) mmol/L Chloride (98-107) mmol/L Carbon Dioxide (21.0-32.0) mmol/L BUN (7.0-18.0) mg/dL Creatinine (0.8-1.3) mg/dL Est Cr Clr Drug Dosing Estimated GFR (MDRD) ml/min Glucose (74-106) mg/dL Lactic Acid (0.4-2.0) mmol/L Calcium (8.5-10.1) mg/dL Magnesium (1.8-2.4) mg/dL Total Bilirubin (0.2-1.0) mg/dL AST (15-37) IU/L ALT (14-63) IU/L Alkaline Phosphatase (46-116) U/L Troponin I (0.000-0.056) ng/mL B-Natriuretic Peptide < 2 (<100) PG/ML Total Protein (6.4-8.2) g/dL Albumin (3.4-5.0) g/dL Globulin (2.6-4.0) g/dL Albumin/Globulin Ratio (0.9-1.6) TSH, Ultra Sensitive (0.36-3.74) uIU/mL Urine Color YELLOW Urine Appearance CLEAR Urine pH 5.0 (5.0-8.0) Ur Specific [place] 1.015 (1.001-1.035) Urine Protein NEGATIVE (NEGATIVE) mg/dL Urine Glucose (UA) NEGATIVE (NEGATIVE) mg/dL Urine Ketones NEGATIVE (NEGATIVE) mg/dL Urine Occult Blood NEGATIVE (NEGATIVE) Urine Nitrite NEGATIVE (NEGATIVE) Urine Bilirubin NEGATIVE (NEGATIVE) Urine Urobilinogen 0.2 (<2.0) EU/dL Ur Leukocyte Esterase NEGATIVE (NEGATIVE) 01/17/21 Range/Units 16:20 WBC (4.0-11.0) K/uL RBC (4.50-5.90) M/uL Hgb (13.0-17.0) g/dL Hct (38.0-50.0) % MCV (80.0-98.0) fL MCH (27.0-32.0) pg MCHC (31.0-37.0) g/dL RDW Std Deviation (28.0-62.0) fl RDW Coeff of Maria Dolores (11.0-15.0) % Plt Count (150-400) K/uL MPV (7.40-12.00) fL Neut % (Auto) (48.0-80.0) % Lymph % (Auto) (16.0-40.0) % [place]oun % (Auto) (0.0-15.0) % Eos % (Auto) (0.0-7.0) % Baso % (Auto) (0.0-1.5) % Neut # (Auto) (1.4-5.7) K/uL Lymph # (Auto) (0.6-2.4) K/uL [place] # (Auto) (0.0-0.8) K/uL Eos # (Auto) (0.0-0.7) K/uL Baso # (Auto) (0.0-0.1) K/uL Nucleated RBC % /100WBC Nucleated RBCs # K/uL INR APTT (18.6-31.3) SEC Sodium (136-148) mmol/L Potassium (3.5-5.1) mmol/L Chloride (98-107) mmol/L Carbon Dioxide (21.0-32.0) mmol/L BUN (7.0-18.0) mg/dL Creatinine (0.8-1.3) mg/dL Est Cr Clr Drug Dosing Estimated GFR (MDRD) ml/min Glucose (74-106) mg/dL Lactic Acid 2.0 (0.4-2.0) mmol/L Calcium (8.5-10.1) mg/dL Magnesium (1.8-2.4) mg/dL Total Bilirubin (0.2-1.0) mg/dL AST (15-37) IU/L ALT (14-63) IU/L Alkaline Phosphatase (46-116) U/L Troponin I (0.000-0.056) ng/mL B-Natriuretic Peptide (<100) PG/ML Total Protein (6.4-8.2) g/dL Albumin (3.4-5.0) g/dL Globulin (2.6-4.0) g/dL Albumin/Globulin Ratio (0.9-1.6) TSH, Ultra Sensitive (0.36-3.74) uIU/mL Urine Color Urine Appearance Urine pH (5.0-8.0) Ur Specific [place] (1.001-1.035) Urine Protein (NEGATIVE) mg/dL Urine Glucose (UA) (NEGATIVE) mg/dL Urine Ketones (NEGATIVE) mg/dL Urine Occult Blood (NEGATIVE) Urine Nitrite (NEGATIVE) Urine Bilirubin (NEGATIVE) Urine Urobilinogen (<2.0) EU/dL Ur Leukocyte Esterase (NEGATIVE) Meds: Medications Generic Name Dose Route Start Last Admin Trade Name Freq PRN Reason Stop Dose Admin Albuterol/Ipratropium 3 ml 01/17/21 18:42 Albuterol/Ipratropium 3.0-0.5 Mg/3 Ml Neb Soln NEB Q4HRRT PRN Shortness Of Breath/wheezing Dextrose/Water 50 ml 01/17/21 18:44 50% Dextrose In Water 50 Ml Syringe IVPUSH ASDIRECTED PRN Hypoglycemia Enoxaparin Sodium 40 mg 01/17/21 19:30 01/17/21 20:29 Enoxaparin 40 Mg/0.4 Ml Syringe SUBCUT 40 mg Q24H [facility]IA Administration Gabapentin 1,200 mg 01/17/21 21:00 01/17/21 20:45 Gabapentin 300 Mg Cap PO 1,200 mg BEDTIME LIBIA Administration Gabapentin 600 mg 01/18/21 09:00 Gabapentin 300 Mg Cap PO BID@0900,1200 [facility] Glucagon 1 mg 01/17/21 18:44 Glucagon,Human Recombinant 1 Mg Vial IM ASDIRECTED PRN Hypoglycemia Piperacillin Sod/Tazobactam 50 mls @ 100 mls/hr 01/17/21 20:30 01/18/21 01:37 Sod 3.375 gm/ Sodium Chloride IV 100 mls/hr Q6H LIBIA Administration Insulin Aspart 0 unit 01/18/21 07:30 01/18/21 07:15 Insulin Aspart 100 Units/Ml 3 Ml Pen SUBCUT Not Given [facility] Protocol Insulin Glargine 20 units 01/17/21 21:00 01/17/21 20:43 Insulin Glargine,Human Rec. Analog 100 Units/Ml 3 Ml Pen SUBCUT 20 units BEDTIME LIBIA Administration Pantoprazole Sodium 40 mg 01/18/21 07:30 Pantoprazole 40 Mg Tab.Cr PO ACBREAKFAST [facility] Polyethylene Glycol 17 gm 01/17/21 19:17 Polyethylene Glycol 3350 Powder 17 Gm Packet PO DAILY PRN Constipation Sodium Chloride 10 ml 01/17/21 12:18 01/17/21 14:05 Sodium Chloride 0.9% 10 Ml Syringe FLUSH 10 ml ASDIRECTED PRN Administration Keep Vein Open Sodium Chloride 2.5 ml 01/17/21 12:18 01/17/21 14:04 Sodium Chloride 0.9% 2.5 Ml Syringe FLUSH 2.5 ml ASDIRECTED PRN Administration Keep Vein Open Discontinued Medications Generic Name Dose Route Start Last Admin Trade Name Freq PRN Reason Stop Dose Admin Sodium Chloride 1,000 mls @ 999 mls/hr 01/17/21 13:55 01/17/21 14:04 Normal Saline IV 01/17/21 14:55 999 mls/hr .Bolus ONE Administration Sodium Chloride 1,000 mls @ 999 mls/hr 01/17/21 13:56 01/17/21 14:04 Normal Saline IV 01/17/21 14:56 999 mls/hr .Bolus ONE Administration Piperacillin Sod/Tazobactam 50 mls @ 100 mls/hr 01/17/21 13:56 01/17/21 14:04 Sod 3.375 gm/ Sodium Chloride IV 01/17/21 14:25 100 mls/hr ONETIME ONE Administration Sodium Chloride 250 mls @ 999 mls/hr 01/17/21 14:04 01/17/21 14:06 Normal Saline IV 01/17/21 14:19 999 mls/hr .Bolus ONE Administration Iopamidol 100 ml 01/17/21 17:09 01/17/21 17:10 Iopamidol 755 Mg/Ml 500 Ml Multipack Bottle IVPUSH 01/17/21 17:10 100 ml ONETIME STA Administration Oxycodone/Acetaminophen 1 tab 01/17/21 18:38 Acetaminophen/Oxycodone 325-5 Mg Tab PO Q4H PRN Pain Telmisartan 40 mg 01/18/21 07:30 Telmisartan 40 Mg Tab PO ACBRK [facility] - Re-Assessments/Exams Free Text/Narrative Re-Assessment/Exam: 01/17/21 12:38 NIHSS = 2 01/17/21 14:03 Patient is noted to have leukocytosis and elevated lactate to 3.9. Antibiotics ordered. No evidence of pneumonia on chest x-ray. UA is pending. Patient was ordered a 2.25 L fluid bolus which covers 30 cc/kg bolus when using adjusted ideal body weight. 01/17/21 14:52 Patient is feeling better with IV fluid bolus. Patient's notes that over the last couple of days patient has been urinating much less frequently. He is on Lasix so he typically urinates very frequently. She states she thinks that he only urinated a couple of times yesterday. Patient is uncertain. He has still not been able to provide us with urine today. 01/17/21 15:[address] and preliminary head and neck CTA are unremarkable. 01/17/21 16:55 Urinalysis is unremarkable. Patient's family notes that a few days ago patient took a lot of MiraLAX so that he could get a thoracic and lumbar spine x-ray. We will follow up repeat lactate and call hospitalist for admission. I do not have a clear source for patient's leukocytosis and elevated lactate. Departure - Departure Time of Disposition: 17:00 Disposition: Admitted As Inpatient 65 Condition: Fair Clinical Impression: Lactic acidosis - Discharge Information - My Orders Last 24 Hours: My Active Orders 01/17/21 12:17 CULTURE BLOOD [BC] Stat 01/17/21 12:18 EKG Documentation Completion [RC] STAT Sodium Chloride 0.9% [Saline Flush] 10 ml FLUSH ASDIRECTED PRN Sodium Chloride 0.9% [Saline Flush] 2.5 ml FLUSH ASDIRECTED PRN Saline Lock Insert [OM.PC] Stat 01/17/21 12:19 Cardiac Monitoring [RC] . DIRECTED Pulse Oximetry [RC] ASDIRECTED 01/17/21 12:21 CULTURE BLOOD [BC] Stat 01/17/21 13:00 Blood Culture x2 Reflex Set [OM.PC] Stat - Assessment/Plan Last 24 Hours: My Active Orders 01/17/21 12:17 CULTURE BLOOD [BC] Stat 01/17/21 12:18 EKG Documentation Completion [RC] STAT Sodium Chloride 0.9% [Saline Flush] 10 ml FLUSH ASDIRECTED PRN Sodium Chloride 0.9% [Saline Flush] 2.5 ml FLUSH ASDIRECTED PRN Saline Lock Insert [OM.PC] Stat 01/17/21 12:19 Cardiac Monitoring [RC] . DIRECTED Pulse Oximetry [RC] ASDIRECTED 01/17/21 12:21 CULTURE BLOOD [BC] Stat 01/17/21 13:00 Blood Culture x2 Reflex Set [OM.PC] Stat
[2021-01-17 13:02] LABS: BLOOD UREA NITROGEN,BUN 32 mg/dL (7.0-18.0); CARBON DIOXIDE,CO2 19.8 mmol/L (21.0-32.0); CHLORIDE,CL 98 mmol/L (98-107); GLUCOSE RANDOM 134 mg/dL (74-106); POTASSIUM,K 4.5 mmol/L (3.5-5.1); SODIUM,NA 133 mmol/L (136-148)
--- NOTE | 2021-01-17 13:13 | CR ---
INDICATION: Generalized weakness and SOB. TECHNIQUE: Single portable AP image. COMPARISON: 02/28/2020. FINDINGS: Lungs low in volume, clear. No pleural effusion. Heart, mediastinum and pulmonary vessels within normal limits, allowing for the shallow inspiration. No significant osseous abnormality. IMPRESSION: Negative, allowing for low lung volumes. Dictated by Robert Upton MD @ 01/17/2021 1:12:[address] Robert Upton @ Jan 17 2021 1:12PM
[2021-01-17] MEDS ORDERED: Sodium Chloride 0.9% 1,000 ML IV ONE ×2 (13:55→13:56)
[2021-01-17] MEDS ORDERED: Piperacillin/Tazobactam 3.375 GM in Sodium Chloride 0.9% 50 ML IV ONE (13:56)
[2021-01-17] MEDS: Sodium Chloride 0.9% 2.5 ML Syringe FLUSH PRN (14:04)
[2021-01-17] MEDS ORDERED: Sodium Chloride 0.9% 250 ML IV ONE (14:04)
--- NOTE | 2021-01-17 15:01 | CT ---
INDICATION: GENERALIZED WEAKNESS, SLURRED SPEECH TECHNIQUE: CT of the head without contrast. Coronal and sagittal reformats. Bone and soft tissue algorithms. Images did not arrive for interpretation until approximately 2:50 p.m. COMPARISON: 02/28/2020 FINDINGS: No acute intracranial hemorrhage or extra-axial collection. No evidence of acute cortical infarction. No mass effect or midline shift. Mild generalized cerebral/cerebellar parenchymal volume loss. Mild regions of decreased attenuation within the periventricular and subcortical white matter of both cerebral hemispheres most likely reflects chronic microvascular ischemic disease and age related change in this patient. Vascular calcifications within the carotid siphons. Orbital contents are normal. No calvarial fractures. No lytic or sclerotic osseous lesions within the calvarium or skull base. Mild thickening of the scalp along the left forehead may be posttraumatic. The mastoid air cells are clear. The nasal septum is deviated to the left. Right TMJ degenerative changes. IMPRESSION: 1. No acute intracranial abnormality. No significant changes compared to 02/28/2020 exam 2. Mild thickening of the scalp along the left forehead may be posttraumatic. Please note that all CT scans at this facility use dose modulation, iterative reconstruction, and/or weight-based dosing when appropriate to reduce radiation dose to as low as reasonably achievable. Dictated by Parag Brown MD @ 01/17/2021 3:01:[address] Parag Brown @ Jan 17 2021 3:01PM
--- NOTE | 2021-01-17 15:08 | CT ---
DATE: 01/17/2021 CLINICAL HISTORY: Patient with weakness and slurred speech. TECHNIQUE: Standard helical CT image acquisition through the head and neck was performed after intravenous contrast bolus enhancement. Multiplanar reconstructed images were performed and interpreted. COMPARISON: CT same day. FINDINGS: The origins of the great vessels from the aortic arch are patent. The origin of the right vertebral artery is patent. The origin of the left vertebral artery is patent. The common carotid arteries are patent There is a mild (<50%) stenosis at the origin of the right internal carotid artery by NASCET criteria. This is caused by non-calcified plaque with a <2mm residual lumen. There is no stenosis at the origin of the left internal carotid artery by NASCET criteria. The rest of the cervical segments of the internal carotid arteries are patent up to their intracranial segments. The intracranial segments of the internal carotid arteries are patent. The right vertebral artery is dominant. The cervical segments of the vertebral arteries are patent. The intracranial segments of the vertebral arteries are patent. The middle cerebral arteries are normal without aneurysm or proximal occlusion identified. The anterior cerebral arteries are normal without aneurysm or proximal occlusion identified. The anterior communicating artery is well visualized and appears normal. The basilar artery is normal without aneurysm or occlusion. The posterior cerebral arteries are normal without aneurysm or proximal occlusion. The visualized lung apices are unremarkable The thyroid gland is unremarkable. The soft tissues of the neck are unremarkable. There are degenerative changes in the cervical spine. IMPRESSION: 1. No proximal intracranial large vessel occlusion. 2. Mild (<50%) stenosis at the origin of the right internal carotid artery by NASCET criteria caused by non-calcified plaque with a <2mm residual lumen. Please note that all CT scans at this facility use dose modulation, iterative reconstruction, and/or weight-based dosing when appropriate to reduce radiation dose to as low as reasonably achievable. Dictated by Javier Romo MD @ 01/17/2021 10:31:[address] Javier Romo @ Jan 17 2021 10:31PM
[2021-01-17] MEDS ORDERED: Iopamidol 755 MG/ML 500 ML Multipack Bottle IVPUSH STA (17:09)
--- NOTE | 2021-01-17 18:00 | PCM.HP.2 ---
H&P History of Present Illness - General Date of Service: 01/17/21 Admit Problem/Dx: Admission Diagnosis/Problem Admission Diagnosis/Problem Altered mental status - History of Present Illness Initial Comments - Free Text/Narative: 75-year-old male with a history of CAD, hypertension, obesity, CHF, diabetes mellitus presents to the ER with weakness, low blood pressure, dizziness and shortness of breath. Patient states he went to sit on a deck this morning and everything became blurry. Patient's noticed change in his mentation and measured his blood pressure 70s/40s. Recent home blood sugars low 100s. P atient began feeling weak and short of breath this morning and has since had difficulty concentrating. Patient has chronic back pain and was put on [place] 5/325 and cyclobenzaprine. Discussed severe constipation so he stopped taking it. Patient was in the ER a few weeks ago and received Toradol 30 mg IM. He is scheduled to see a specialist in [place] next week for back pain. Patient was noted to be constipated so the provider advised he take MiraLAX to empty his colon before thoracic and lumbar x-ray. Patient has been taking MiraLAX for the last 2 days. He states that this helped empty his bowels. Denies fever, chills, chest pain, palpitations, headaches, leg and calf pain. Denies dysuria, diarrhea and abdominal pain. ER course: Temperature 98. Pulse 77. Respiratory rate 18. Blood pressure 103/62. Pulse ox 97%. CXR: No evidence of pneumonia. WBC 17. Sodium 133. Bicarb 19.8. BUN 32. Creatinine 2.1. Glucose 134. Lactic acid 3.9. Alk phos 118. Urinalysis unremarkable. Patient received IV Zosyn. 2.25 L IV fluid bolus. Head CT and neck CTA unremarkable. EKG unremarkable. Blood cultures pending. Repeat lactic acid 2.0 Past medical history: Morbid obesity, diabetes mellitus, history of TIA, hypertension, CAD, BPH, COVID-19 with associated kidney injury 02/2020 Past surgical history: Lap band. LAP-BAND removal. Back surgery. Colonoscopy 2013 showing 3 tubular adenomatous polyps, 04/2017 right knee total arthroplasty - Related Data Allergies/Adverse Reactions: Allergies Allergy/AdvReac Type Severity Reaction Status Date / Time No Known Allergies Allergy Verified 01/17/21 13:25 Home Medications: Home Meds Telmisartan 40 mg PO ACBRK 10/24/13 [History] Furosemide 20 mg PO DAILY 04/26/17 [History] Lansoprazole [Prevacid] 30 mg PO BID PRN 04/26/17 [History] Potassium Chloride 10 meq PO DAILY 04/26/17 [History] Atropine/Diphenoxylate [Lomotil 0.025-2.5 MG] 1 tab PO QID PRN 04/30/17 [History] metFORMIN HCl [Metformin HCl ER] 1,000 mg PO BID 04/30/17 [History] Acetaminophen [Tylenol Extra Strength] 1,000 mg PO Q6H #100 tablet 05/02/17 [Rx] Aspirin 1 tab PO DAILY 02/28/20 [History] Gabapentin [Neurontin] 2 tab PO BID 02/28/20 [History] Gabapentin [Neurontin] 4 tab PO BEDTIME 02/28/20 [History] Insulin Glarg,Human.Rec.Analog [Lantus] 20 units SQ BEDTIME 02/28/20 [History] Liraglutide [Victoza] 1.8 mg SQ DAILY 02/28/20 [History] Saxagliptin HCl [Onglyza] 1 tab PO DAILY 02/28/20 [History] Tamsulosin [Flomax] 1 tab PO BEDTIME 02/28/20 [History] Past Medical History HEENT History: Reports: Allergic Rhinitis, Other (See Below) Other HEENT History: wears glasses, maria c hearing aids Cardiovascular History: Reports: CAD, Cardiomyopathy, High Cholesterol, Hypertension Respiratory History: Reports: Sleep Apnea Other Respiratory History: uses CPAP Gastrointestinal History: Reports: GERD Genitourinary History: Reports: BPH Musculoskeletal History: Reports: Arthritis Neurological History: Reports: Parkinson's Psychiatric History: Reports: Dementia Endocrine/Metabolic History: Reports: Diabetes, Type II, Obesity/BMI 30+ Hematologic History: Reports: None Immunologic History: Reports: None Oncologic (Cancer) History: Reports: None Dermatologic History: Reports: None - Infectious Disease History Infectious Disease History: Reports: Chicken Pox, Shingles - Past Surgical History Head Surgeries/Procedures: Reports: None HEENT Surgical History: Reports: Cataract Surgery Cardiovascular Surgical History: Reports: Other (See Below) Other Cardiovascular Surgeries/Procedures: angiogram (no stents) GI Surgical History: Reports: Bariatric Procedure, Colonoscopy Other GI Surgeries/Procedures: lap band surgery, removal of lap band Neurological Surgical History: Reports: Lumbar Spine Other Neurological Surgeries/Procedures: hx lower back surgery Musculoskeletal Surgical History: Reports: Knee Replacement, Other (See Below) Other Musculoskeletal Surgeries/Procedures:: bilateral TKA, Left Hip replacment Social & Family History - Family History Family Medical History: Unobtainable - Tobacco Use Tobacco Use Status *Q: Never Tobacco User Second Hand Smoke Exposure: No - Caffeine Use Caffeine Use: Reports: None - Recreational Drug Use Recreational Drug Use: No - Living Situation & Occupation Living situation: Reports: Occupation: Retired H&P Review of Systems - Review of Systems: Review Of Systems: See Below General: Reports: Weakness, Fatigue. Denies: Fever, Chills HEENT: Denies: No Symptoms Pulmonary: Reports: Shortness of Breath. Denies: Wheezing, Pleuritic Chest Pain, Cough Cardiovascular: Denies: Chest Pain, Palpitations, Dyspnea on Exertion, Edema Gastrointestinal: Reports: Constipation. Denies: Abdominal Pain, Black Stool, Bloody Stool, Diarrhea, Decreased Appetite, Melena, Nausea, Vomiting Genitourinary: Denies: Dysuria, Frequency, Burning Musculoskeletal: Reports: Back Pain Skin: Reports: No Symptoms Neurological: Reports: Confusion Exam - Exam Exam: See Below - Vital Signs Vital Signs: Last Vital Signs Temp 98.0 F 01/17/21 16:48 Pulse 77 01/17/21 16:48 Resp 18 01/17/21 16:48 BP 103/62 01/17/21 16:48 Pulse Ox 97 01/17/21 16:48 Weight: 275 lb - Exam General: Alert, Oriented, Cooperative HEENT: Conjunctiva Clear, EOMI Neck: Supple. No: Lymphadenopathy, JVD Lungs: Decreased Breath Sounds. No: Crackles, Wheezing Cardiovascular: Regular Rate, Regular Rhythm GI/Abdominal Exam: Non-Tender, Distended, Tender. No: Guarding, Rigid, Rebound Back Exam: Vertebral Tenderness. No: CVA Tenderness (L), CVA Tenderness (R) Extremities: Normal Inspection. No: Pedal Edema, Fabiola's Sign Peripheral Pulses: 2+: Dorsalis Pedis (L), Dorsalis Pedis (R) Neuro Extensive - Mental Status: Alert, Oriented x3 - Patient Data Lab Results Last 24 hrs: Laboratory Results - last 24 hr 01/17/21 01/17/21 01/17/21 Range/Units 12:17 12:17 12:17 WBC 17.08 H (4.0-11.0) K/uL RBC 4.93 (4.50-5.90) M/uL Hgb 14.9 (13.0-17.0) g/dL Hct 42.3 (38.0-50.0) % MCV 85.8 (80.0-98.0) fL MCH 30.2 (27.0-32.0) pg MCHC 35.2 (31.0-37.0) g/dL RDW Std Deviation 42.0 (28.0-62.0) fl RDW Coeff of Maria Dolores 13 (11.0-15.0) % Plt Count 325 (150-400) K/uL MPV 9.30 (7.40-12.00) fL Neut % (Auto) 76.2 (48.0-80.0) % Lymph % (Auto) 15.6 L (16.0-40.0) % [place] % (Auto) 7.0 (0.0-15.0) % Eos % (Auto) 0.8 (0.0-7.0) % Baso % (Auto) 0.4 (0.0-1.5) % Neut # (Auto) 13.0 H (1.4-5.7) K/uL Lymph # (Auto) 2.7 H (0.6-2.4) K/uL [place] # (Auto) 1.2 H (0.0-0.8) K/uL Eos # (Auto) 0.1 (0.0-0.7) K/uL Baso # (Auto) 0.1 (0.0-0.1) K/uL Nucleated RBC % 0.0 /100WBC Nucleated RBCs # 0 K/uL INR APTT (18.6-31.3) SEC Sodium 133 L (136-148) mmol/L Potassium 4.5 (3.5-5.1) mmol/L Chloride 98 (98-107) mmol/L Carbon Dioxide 19.8 L (21.0-32.0) mmol/L BUN 32 H (7.0-18.0) mg/dL Creatinine 2.1 H (0.8-1.3) mg/dL Est Cr Clr Drug Dosing TNP Estimated GFR (MDRD) 30.9 ml/min Glucose 134 H (74-106) mg/dL Lactic Acid 3.9 H* (0.4-2.0) mmol/L Calcium 8.8 (8.5-10.1) mg/dL Magnesium 1.8 (1.8-2.4) mg/dL Total Bilirubin 0.4 (0.2-1.0) mg/dL AST 18 (15-37) IU/L ALT 23 (14-63) IU/L Alkaline Phosphatase 118 H (46-116) U/L Troponin I < 0.050 (0.000-0.056) ng/mL B-Natriuretic Peptide (<100) PG/ML Total Protein 7.4 (6.4-8.2) g/dL Albumin 4.1 (3.4-5.0) g/dL Globulin 3.3 (2.6-4.0) g/dL Albumin/Globulin Ratio 1.2 (0.9-1.6) TSH, Ultra Sensitive 0.38 (0.36-3.74) uIU/mL Urine Color Urine Appearance Urine pH (5.0-8.0) Ur Specific [place] (1.001-1.035) Urine Protein (NEGATIVE) mg/dL Urine Glucose (UA) (NEGATIVE) mg/dL Urine Ketones (NEGATIVE) mg/dL Urine Occult Blood (NEGATIVE) Urine Nitrite (NEGATIVE) Urine Bilirubin (NEGATIVE) Urine Urobilinogen (<2.0) EU/dL Ur Leukocyte Esterase (NEGATIVE) 01/17/21 01/17/21 01/17/21 Range/Units 12:17 12:17 15:34 WBC (4.0-11.0) K/uL RBC (4.50-5.90) M/uL Hgb (13.0-17.0) g/dL Hct (38.0-50.0) % MCV (80.0-98.0) fL MCH (27.0-32.0) pg MCHC (31.0-37.0) g/dL RDW Std Deviation (28.0-62.0) fl RDW Coeff of Maria Dolores (11.0-15.0) % Plt Count (150-400) K/uL MPV (7.40-12.00) fL Neut % (Auto) (48.0-80.0) % Lymph % (Auto) (16.0-40.0) % [place] % (Auto) (0.0-15.0) % Eos % (Auto) (0.0-7.0) % Baso % (Auto) (0.0-1.5) % Neut # (Auto) (1.4-5.7) K/uL Lymph # (Auto) (0.6-2.4) K/uL [place] # (Auto) (0.0-0.8) K/uL Eos # (Auto) (0.0-0.7) K/uL Baso # (Auto) (0.0-0.1) K/uL Nucleated RBC % /100WBC Nucleated RBCs # K/uL INR 1.00 APTT 25.2 (18.6-31.3) SEC Sodium (136-148) mmol/L Potassium (3.5-5.1) mmol/L Chloride (98-107) mmol/L Carbon Dioxide (21.0-32.0) mmol/L BUN (7.0-18.0) mg/dL Creatinine (0.8-1.3) mg/dL Est Cr Clr Drug Dosing Estimated GFR (MDRD) ml/min Glucose (74-106) mg/dL Lactic Acid (0.4-2.0) mmol/L Calcium (8.5-10.1) mg/dL Magnesium (1.8-2.4) mg/dL Total Bilirubin (0.2-1.0) mg/dL AST (15-37) IU/L ALT (14-63) IU/L Alkaline Phosphatase (46-116) U/L Troponin I (0.000-0.056) ng/mL B-Natriuretic Peptide < 2 (<100) PG/ML Total Protein (6.4-8.2) g/dL Albumin (3.4-5.0) g/dL Globulin (2.6-4.0) g/dL Albumin/Globulin Ratio (0.9-1.6) TSH, Ultra Sensitive (0.36-3.74) uIU/mL Urine Color YELLOW Urine Appearance CLEAR Urine pH 5.0 (5.0-8.0) Ur Specific [place] 1.015 (1.001-1.035) Urine Protein NEGATIVE (NEGATIVE) mg/dL Urine Glucose (UA) NEGATIVE (NEGATIVE) mg/dL Urine Ketones NEGATIVE (NEGATIVE) mg/dL Urine Occult Blood NEGATIVE (NEGATIVE) Urine Nitrite NEGATIVE (NEGATIVE) Urine Bilirubin NEGATIVE (NEGATIVE) Urine Urobilinogen 0.2 (<2.0) EU/dL Ur Leukocyte Esterase NEGATIVE (NEGATIVE) 01/17/21 Range/Units 16:20 WBC (4.0-11.0) K/uL RBC (4.50-5.90) M/uL Hgb (13.0-17.0) g/dL Hct (38.0-50.0) % MCV (80.0-98.0) fL MCH (27.0-32.0) pg MCHC (31.0-37.0) g/dL RDW Std Deviation (28.0-62.0) fl RDW Coeff of Maria Dolores (11.0-15.0) % Plt Count (150-400) K/uL MPV (7.40-12.00) fL Neut % (Auto) (48.0-80.0) % Lymph % (Auto) (16.0-40.0) % [place] % (Auto) (0.0-15.0) % Eos % (Auto) (0.0-7.0) % Baso % (Auto) (0.0-1.5) % Neut # (Auto) (1.4-5.7) K/uL Lymph # (Auto) (0.6-2.4) K/uL [place] # (Auto) (0.0-0.8) K/uL Eos # (Auto) (0.0-0.7) K/uL Baso # (Auto) (0.0-0.1) K/uL Nucleated RBC % /100WBC Nucleated RBCs # K/uL INR APTT (18.6-31.3) SEC Sodium (136-148) mmol/L Potassium (3.5-5.1) mmol/L Chloride (98-107) mmol/L Carbon Dioxide (21.0-32.0) mmol/L BUN (7.0-18.0) mg/dL Creatinine (0.8-1.3) mg/dL Est Cr Clr Drug Dosing Estimated GFR (MDRD) ml/min Glucose (74-106) mg/dL Lactic Acid 2.0 (0.4-2.0) mmol/L Calcium (8.5-10.1) mg/dL Magnesium (1.8-2.4) mg/dL Total Bilirubin (0.2-1.0) mg/dL AST (15-37) IU/L ALT (14-63) IU/L Alkaline Phosphatase (46-116) U/L Troponin I (0.000-0.056) ng/mL B-Natriuretic Peptide (<100) PG/ML Total Protein (6.4-8.2) g/dL Albumin (3.4-5.0) g/dL Globulin (2.6-4.0) g/dL Albumin/Globulin Ratio (0.9-1.6) TSH, Ultra Sensitive (0.36-3.74) uIU/mL Urine Color Urine Appearance Urine pH (5.0-8.0) Ur Specific [place] (1.001-1.035) Urine Protein (NEGATIVE) mg/dL Urine Glucose (UA) (NEGATIVE) mg/dL Urine Ketones (NEGATIVE) mg/dL Urine Occult Blood (NEGATIVE) Urine Nitrite (NEGATIVE) Urine Bilirubin (NEGATIVE) Urine Urobilinogen (<2.0) EU/dL Ur Leukocyte Esterase (NEGATIVE) Result Diagrams: 01/17/21 12:17 01/17/21 12:17 Bryce Results Last 24 hrs: Microbiology 01/17/21 12:21 Anaerobic Blood Culture - Final Blood - Venous - Lab Draw Sepsis Event Note - Evaluation Sepsis Screening Result: No Definite Risk - Focused Exam Vital Signs: Vital Signs Temp Pulse Resp BP Pulse Ox 01/17/21 16:48 98.0 F 77 18 103/62 97 01/17/21 16:08 62 18 108/57 L 97 01/17/21 14:45 68 18 100/65 97 01/17/21 14:11 96 18 98/67 97 01/17/21 13:45 84 18 84/62 L 97 01/17/21 13:20 72 18 103/58 L 97 01/17/21 13:15 72 18 100/62 97 01/17/21 12:45 98.2 F 70 18 105/63 97 01/17/21 12:12 97.4 F 84 18 120/67 95 - Problem List (1) Sepsis SNOMED Code(s): 98400433 ICD Code: A41.9 - SEPSIS, UNSPECIFIED ORGANISM Status: Acute Current Visit: Yes (2) Chronic kidney disease SNOMED Code(s): 489179135 ICD Code: N18.9 - CHRONIC KIDNEY DISEASE, UNSPECIFIED Status: Acute Current Visit: Yes Problem List Initiated/Reviewed/Updated: Yes Orders Last 24hrs: Active Orders 24 hr Category Date Time Status Patient Status [ADT] Routine ADT 01/17/21 17:10 Active Blood Glucose Check, Bedside [RC] ONETIME Care 01/17/21 12:19 Active Cardiac Monitoring [RC] . DIRECTED Care 01/17/21 12:19 Active EKG Documentation Completion [RC] STAT Care 01/17/21 12:18 Active Pulse Oximetry [RC] ASDIRECTED Care 01/17/21 12:19 Active Abdomen Pelvis wo Cont [CT] Stat Exams 01/17/21 17:13 Ordered Chest wo Cont [CT] Stat Exams 01/17/21 17:13 Ordered CULTURE BLOOD [BC] Stat Lab 01/17/21 12:17 Received CULTURE BLOOD [BC] Stat Lab 01/17/21 12:21 Results Sodium Chloride 0.9% [Saline Flush] Med 01/17/21 12:18 Active 10 ml FLUSH ASDIRECTED PRN Sodium Chloride 0.9% [Saline Flush] Med 01/17/21 12:18 Active 2.5 ml FLUSH ASDIRECTED PRN Blood Culture x2 Reflex Set [OM.PC] Stat Oth 01/17/21 13:00 Ordered Saline Lock Insert [OM.PC] Stat Oth 01/17/21 12:18 Ordered Medication Orders Sodium Chloride (Sodium Chloride 0.9% 10 Ml Syringe) 10 ml FLUSH ASDIRECTED PRN PRN Reason: Keep Vein Open Last Admin: 01/17/21 14:05 Dose: 10 ml Documented by: PAUL Sodium Chloride (Sodium Chloride 0.9% 2.5 Ml Syringe) 2.5 ml FLUSH ASDIRECTED PRN PRN Reason: Keep Vein Open Last Admin: 01/17/21 14:04 Dose: 2.5 ml Documented by: PAUL Assessment/Plan Comment:: 75-year-old male with a history of diabetes mellitus, hypertension and CHF being admitted for sepsis. Source of infection is unclear. UA and chest x-ray unremarkable. Patient had abdominal tenderness on exam. Patient received Zosyn in the ER. Blood cultures pending. CT chest/abdomen/pelvis pending. Monitor on telemetry. CODE STATUS: Full code
[2021-01-17] MEDS ORDERED: Acetaminophen/oxyCODONE 325-5 MG Tab PO PRN (18:38)
[2021-01-17] MEDS ORDERED: Albuterol/Ipratropium 3.0-0.5 MG/3 ML Neb Soln NEB PRN (18:42)
[2021-01-17] MEDS ORDERED: 50% Dextrose in Water 50 ML Syringe IVPUSH PRN (18:44)
[2021-01-17] MEDS ORDERED: Glucagon,Human Recombinant 1 MG Vial IM PRN (18:44)
[2021-01-17] MEDS ORDERED: Polyethylene Glycol 3350 Powder 17 GM Packet PO PRN (19:17)
--- NOTE | 2021-01-17 20:28 | CT ---
INDICATION: Chest and abdominal pain. TECHNIQUE: CT chest, abdomen and pelvis acquired without IV contrast. COMPARISON: Chest radiograph 01/17/2021 FINDINGS: Chest: Cardiovascular structures: Heart size is prominent. There are coronary artery calcifications. Thoracic aorta is normal in caliber. Mild atherosclerotic calcification of the thoracic aorta. Mild tortuosity of the descending thoracic aorta. Main pulmonary artery is normal in caliber. Mediastinum and janelle: No mass or adenopathy. Lungs: No pneumothorax. 6 mm nodule in the left upper lobe (image 58). No other lung nodule. No consolidation or edema. Mild bibasilar atelectasis. Pleura and pericardium: No effusions. Chest wall and axilla: No mass or adenopathy. Abdomen and Pelvis: Liver: Mildly enlarged. No focal lesion. Spleen: Unremarkable. Pancreas: Unremarkable. Gallbladder and bile ducts: Gallbladder is mildly distended. No wall thickening or pericholecystic fluid. No stones visualized. Adrenal glands: Unremarkable. Kidneys: There is excreted contrast from recent CT angio within the collecting systems. No focal lesion. No hydronephrosis. GI tract: There is colonic diverticulosis. The appendix is normal. No small bowel obstruction. Vascular structures: No abdominal aortic aneurysm. There is atherosclerotic calcification. Lymph nodes: Unremarkable. Miscellaneous: No ascites. No free air. Tiny fat containing umbilical hernia. Pelvic Organs: Excreted contrast within the urinary bladder. No wall thickening. Prostate is prominent. Bones: No acute abnormality. No suspicious bone lesion. Sequelae of left total hip arthroplasty noted. IMPRESSION: 1. No acute abnormality in the chest. 2. 6 mm nodule in the left upper lobe. Recommend follow-up per Fleischner society guidelines. 3. No definite acute abnormality in the abdomen or pelvis. 4. The gallbladder is mildly distended. This may be secondary to fasting. There are no gallstones, no pericholecystic fluid and no wall thickening to suggest acute cholecystitis. 5. Mild hepatomegaly. FLEISCHNER SOCIETY GUIDELINES - SOLID NODULES: SINGLE LOW RISK - nodule less than 6 mm: No routine follow-up. - nodule 6-8 mm: CT at 6-12 months, then consider CT at 18-24 months. - nodule greater than 8 mm: Consider CT at 3 months, PET/CT or tissue sampling. SINGLE HIGH RISK - nodule less than 6 mm: Optional CT at 12 months. - nodule 6-8 mm: CT at 6-12 months, then CT at 18-24 months. - nodule greater than 8 mm: Consider CT at 3 months, PET/CT or tissue sampling. MULTIPLE LOW RISK - nodule less than 6 mm: No routine follow-up. - nodule 6-8 mm: CT at 3-6 months, then consider CT at 18-24 months. - nodule greater than 8 mm: CT at 3-6 months, then consider CT at 18-24 months. MULTIPLE HIGH RISK - nodule less than 6 mm: Optional CT at 12 months. - nodule 6-8 mm: CT at 3-6 months, then at 18-24 months. - nodule greater than 8 mm: CT at 3-6 months, then at 18-24 months. Please note that all CT scans at this facility use dose modulation, iterative reconstruction, and/or weight-based dosing when appropriate to reduce radiation dose to as low as reasonably achievable. Dictated by Georgi Walton MD @ 01/17/2021 8:27:[address] Georgi Walton @ Jan 17 2021 8:27PM
--- NOTE | 2021-01-17 20:28 | CT ---
INDICATION: Chest and abdominal pain. TECHNIQUE: CT chest, abdomen and pelvis acquired without IV contrast. COMPARISON: Chest radiograph 01/17/2021 FINDINGS: Chest: Cardiovascular structures: Heart size is prominent. There are coronary artery calcifications. Thoracic aorta is normal in caliber. Mild atherosclerotic calcification of the thoracic aorta. Mild tortuosity of the descending thoracic aorta. Main pulmonary artery is normal in caliber. Mediastinum and janelle: No mass or adenopathy. Lungs: No pneumothorax. 6 mm nodule in the left upper lobe (image 58). No other lung nodule. No consolidation or edema. Mild bibasilar atelectasis. Pleura and pericardium: No effusions. Chest wall and axilla: No mass or adenopathy. Abdomen and Pelvis: Liver: Mildly enlarged. No focal lesion. Spleen: Unremarkable. Pancreas: Unremarkable. Gallbladder and bile ducts: Gallbladder is mildly distended. No wall thickening or pericholecystic fluid. No stones visualized. Adrenal glands: Unremarkable. Kidneys: There is excreted contrast from recent CT angio within the collecting systems. No focal lesion. No hydronephrosis. GI tract: There is colonic diverticulosis. The appendix is normal. No small bowel obstruction. Vascular structures: No abdominal aortic aneurysm. There is atherosclerotic calcification. Lymph nodes: Unremarkable. Miscellaneous: No ascites. No free air. Tiny fat containing umbilical hernia. Pelvic Organs: Excreted contrast within the urinary bladder. No wall thickening. Prostate is prominent. Bones: No acute abnormality. No suspicious bone lesion. Sequelae of left total hip arthroplasty noted. IMPRESSION: 1. No acute abnormality in the chest. 2. 6 mm nodule in the left upper lobe. Recommend follow-up per Fleischner society guidelines. 3. No definite acute abnormality in the abdomen or pelvis. 4. The gallbladder is mildly distended. This may be secondary to fasting. There are no gallstones, no pericholecystic fluid and no wall thickening to suggest acute cholecystitis. 5. Mild hepatomegaly. FLEISCHNER SOCIETY GUIDELINES - SOLID NODULES: SINGLE LOW RISK - nodule less than 6 mm: No routine follow-up. - nodule 6-8 mm: CT at 6-12 months, then consider CT at 18-24 months. - nodule greater than 8 mm: Consider CT at 3 months, PET/CT or tissue sampling. SINGLE HIGH RISK - nodule less than 6 mm: Optional CT at 12 months. - nodule 6-8 mm: CT at 6-12 months, then CT at 18-24 months. - nodule greater than 8 mm: Consider CT at 3 months, PET/CT or tissue sampling. MULTIPLE LOW RISK - nodule less than 6 mm: No routine follow-up. - nodule 6-8 mm: CT at 3-6 months, then consider CT at 18-24 months. - nodule greater than 8 mm: CT at 3-6 months, then consider CT at 18-24 months. MULTIPLE HIGH RISK - nodule less than 6 mm: Optional CT at 12 months. - nodule 6-8 mm: CT at 3-6 months, then at 18-24 months. - nodule greater than 8 mm: CT at 3-6 months, then at 18-24 months. Dictated by Georgi Walton MD @ 01/17/2021 8:26:26 PM Please note that all CT scans at this facility use dose modulation, iterative reconstruction, and/or weight-based dosing when appropriate to reduce radiation dose to as low as reasonably achievable. Dictated by: Georgi Walton MD @ 01/17/2021 20:26:32 (Electronically Signed)
[2021-01-17] MEDS: Piperacillin/Tazobactam 3.375 GM in Sodium Chloride 0.9% 50 ML IV SCH (20:29)
[2021-01-17] MEDS: Enoxaparin 40 MG/0.4 ML Syringe SUBCUT SCH (20:29)
[2021-01-17] MEDS: Insulin Glargine,Human Rec. Analog 100 Units/ML 3 ML Pen SUBCUT SCH (20:43)
[2021-01-17] MEDS: Gabapentin 300 MG Cap PO SCH (20:45)
[2021-01-18] MEDS: Piperacillin/Tazobactam 3.375 GM in Sodium Chloride 0.9% 50 ML IV SCH ×4 (01:37→21:06)
[2021-01-18 06:30] LABS: CARBON DIOXIDE,CO2 23.8 mmol/L (21.0-32.0); POTASSIUM,K 4.4 mmol/L (3.5-5.1)
[2021-01-18] MEDS: Insulin Aspart 100 Units/ML 3 ML Pen SUBCUT SCH ×3 (07:15→17:14)
[2021-01-18] MEDS: Sodium Chloride 0.9% 2.5 ML Syringe FLUSH PRN (08:18)
[2021-01-18] MEDS: Pantoprazole 40 MG Tab.CR PO SCH (08:44)
[2021-01-18] MEDS: Gabapentin 300 MG Cap PO SCH ×3 (08:44→21:06)
--- NOTE | 2021-01-18 11:13 | US ---
INDICATION: Leukocytosis. TECHNIQUE: Ultrasound abdomen complete. Sonographic images of the entire abdomen were obtained using patel-scale and color Doppler. COMPARISON: CT abdomen pelvis January 17, 2021. FINDINGS: Liver: Normal in size and echotexture. No masses. No intrahepatic biliary dilatation. Gallbladder: A single 2 cm stone is in the gallbladder. Normal wall thickness. No pericholecystic fluid. Common bile duct: 3 mm. Pancreas: Normal in size and appearance. Spleen: Normal in size and appearance. Kidneys: Both kidneys are normal in size. Normal echotexture and cortex. No masses, stones, or hydronephrosis. Vasculature: Proximal abdominal aorta and IVC are normal in caliber. A 5 cm pocket of fluid or cystic lesion in the area of the umbilicus is nonspecific. There is no correlate on yesterday`s CT abdomen pelvis for this finding which is of doubtful significance. This could represent bowel. IMPRESSION: Single prominent gallbladder stone without further evidence of cholecystitis or other acute or specific finding to explain leukocytosis. Dictated by Elia Reyes MD @ 01/18/2021 11:11:[address] Elia Reyes @ Jan 18 2021 11:11AM
--- NOTE | 2021-01-18 17:18 | PCM.PN ---
- General Info Date of Service: 01/18/21 Admission Dx/Problem (Free Text): Admission Diagnosis/Problem Admission Diagnosis/Problem Altered mental status Subjective Update: 75-year-old male with history of CAD, hypertension, diabetes mellitus and cardiomyopathy admitted for SIRS, on day [address] chest, abdomen, pelvis showed no acute abnormality in the chest. No abnormality in the abdomen or pelvis. 6 mm nodule in the left upper lobe of the lung. Gallbladder mildly distended but no cholecystitis. Patient had ultrasound of the right upper quadr ant this morning and results are pending. Overnight patient did not sleep well. He does complain of mild right upper quadrant pain. Patient's hypertensive medications were held. Last blood pressure 105/65. Patient does endorse a history of smoking 1 pack/day for 30 years but quit in his 50s. He also chewed tobacco for 40 years. Denies alcohol use. - Review of Systems General: Reports: Fatigue. Denies: Fever HEENT: Reports: No Symptoms Pulmonary: Reports: No Symptoms. Denies: Shortness of Breath Cardiovascular: Reports: Edema. Denies: Chest Pain, Palpitations Gastrointestinal: Reports: Abdominal Pain. Denies: Constipation, Diarrhea, Hematochezia, Melena, Nausea, Vomiting Genitourinary: Reports: No Symptoms Musculoskeletal: Reports: No Symptoms Skin: Reports: No Symptoms Neurological: Denies: Confusion, Dizziness, Syncope - Patient Data Vitals - Most Recent: Last Vital Signs Temp 96.9 F 01/18/21 15:58 Pulse 72 01/18/21 15:58 Resp 16 01/18/21 15:58 BP 100/61 01/18/21 15:58 Pulse Ox 96 01/18/21 15:58 Weight - Most Recent: 284 lb 6.341 oz I&O - Last 24 Hours: Intake & Output 01/18/21 01/18/21 01/18/21 06:59 14:59 22:59 Intake Total 700 1400 Output Total 950 1300 Balance -250 100 Lab Results Last 24 Hours: Laboratory Results - last 24 hr 01/17/21 01/17/21 01/17/21 Range/Units 16:20 19:32 20:42 WBC (4.0-11.0) K/uL RBC (4.50-5.90) M/uL Hgb (13.0-17.0) g/dL Hct (38.0-50.0) % MCV (80.0-98.0) fL MCH (27.0-32.0) pg MCHC (31.0-37.0) g/dL RDW Std Deviation (28.0-62.0) fl RDW Coeff of Maria Dolores (11.0-15.0) % Plt Count (150-400) K/uL MPV (7.40-12.00) fL Neut % (Auto) (48.0-80.0) % Lymph % (Auto) (16.0-40.0) % Osborne % (Auto) (0.0-15.0) % Eos % (Auto) (0.0-7.0) % Baso % (Auto) (0.0-1.5) % Neut # (Auto) (1.4-5.7) K/uL Lymph # (Auto) (0.6-2.4) K/uL Osborne # (Auto) (0.0-0.8) K/uL Eos # (Auto) (0.0-0.7) K/uL Baso # (Auto) (0.0-0.1) K/uL Nucleated RBC % /100WBC Nucleated RBCs # K/uL Sodium (136-148) mmol/L Potassium (3.5-5.1) mmol/L Chloride (98-107) mmol/L Carbon Dioxide (21.0-32.0) mmol/L BUN (7.0-18.0) mg/dL Creatinine (0.8-1.3) mg/dL Est Cr Clr Drug Dosing mL/min Estimated GFR (MDRD) ml/min Glucose (74-106) mg/dL POC Glucose 97 154 H (70-99) mg/dL Lactic Acid 2.0 (0.4-2.0) mmol/L Calcium (8.5-10.1) mg/dL Total Bilirubin (0.2-1.0) mg/dL AST (15-37) IU/L ALT (14-63) IU/L Alkaline Phosphatase (46-116) U/L Total Protein (6.4-8.2) g/dL Albumin (3.4-5.0) g/dL Globulin (2.6-4.0) g/dL Albumin/Globulin Ratio (0.9-1.6) 01/18/21 01/18/21 01/18/21 Range/Units 05:57 05:57 06:43 WBC 11.26 H (4.0-11.0) K/uL RBC 4.32 L (4.50-5.90) M/uL Hgb 12.7 L (13.0-17.0) g/dL Hct 37.4 L (38.0-50.0) % MCV 86.6 (80.0-98.0) fL MCH 29.4 (27.0-32.0) pg MCHC 34.0 (31.0-37.0) g/dL RDW Std Deviation 42.7 (28.0-62.0) fl RDW Coeff of Maria Dolores 14 (11.0-15.0) % Plt Count 266 (150-400) K/uL MPV 9.20 (7.40-12.00) fL Neut % (Auto) 70.4 (48.0-80.0) % Lymph % (Auto) 19.3 (16.0-40.0) % Osborne % (Auto) 8.3 (0.0-15.0) % Eos % (Auto) 1.4 (0.0-7.0) % Baso % (Auto) 0.6 (0.0-1.5) % Neut # (Auto) 7.9 H (1.4-5.7) K/uL Lymph # (Auto) 2.2 (0.6-2.4) K/uL Osborne # (Auto) 0.9 H (0.0-0.8) K/uL Eos # (Auto) 0.2 (0.0-0.7) K/uL Baso # (Auto) 0.1 (0.0-0.1) K/uL Nucleated RBC % 0.0 /100WBC Nucleated RBCs # 0 K/uL Sodium 134 L (136-148) mmol/L Potassium 4.4 (3.5-5.1) mmol/L Chloride 103 (98-107) mmol/L Carbon Dioxide 23.8 (21.0-32.0) mmol/L BUN 27 H (7.0-18.0) mg/dL Creatinine 1.8 H (0.8-1.3) mg/dL Est Cr Clr Drug Dosing 33.78 mL/min Estimated GFR (MDRD) 36.9 ml/min Glucose 113 H (74-106) mg/dL POC Glucose 113 H (70-99) mg/dL Lactic Acid (0.4-2.0) mmol/L Calcium 8.3 L (8.5-10.1) mg/dL Total Bilirubin 0.3 (0.2-1.0) mg/dL AST 17 (15-37) IU/L ALT 21 (14-63) IU/L Alkaline Phosphatase 109 (46-116) U/L Total Protein 6.3 L (6.4-8.2) g/dL Albumin 3.3 L (3.4-5.0) g/dL Globulin 3.0 (2.6-4.0) g/dL Albumin/Globulin Ratio 1.1 (0.9-1.6) 01/18/21 01/18/21 Range/Units 12:04 16:30 WBC (4.0-11.0) K/uL RBC (4.50-5.90) M/uL Hgb (13.0-17.0) g/dL Hct (38.0-50.0) % MCV (80.0-98.0) fL MCH (27.0-32.0) pg MCHC (31.0-37.0) g/dL RDW Std Deviation (28.0-62.0) fl RDW Coeff of Maria Dolores (11.0-15.0) % Plt Count (150-400) K/uL MPV (7.40-12.00) fL Neut % (Auto) (48.0-80.0) % Lymph % (Auto) (16.0-40.0) % Osborne % (Auto) (0.0-15.0) % Eos % (Auto) (0.0-7.0) % Baso % (Auto) (0.0-1.5) % Neut # (Auto) (1.4-5.7) K/uL Lymph # (Auto) (0.6-2.4) K/uL Osborne # (Auto) (0.0-0.8) K/uL Eos # (Auto) (0.0-0.7) K/uL Baso # (Auto) (0.0-0.1) K/uL Nucleated RBC % /100WBC Nucleated RBCs # K/uL Sodium (136-148) mmol/L Potassium (3.5-5.1) mmol/L Chloride (98-107) mmol/L Carbon Dioxide (21.0-32.0) mmol/L BUN (7.0-18.0) mg/dL Creatinine (0.8-1.3) mg/dL Est Cr Clr Drug Dosing mL/min Estimated GFR (MDRD) ml/min Glucose (74-106) mg/dL POC Glucose 122 H 191 H (70-99) mg/dL Lactic Acid (0.4-2.0) mmol/L Calcium (8.5-10.1) mg/dL Total Bilirubin (0.2-1.0) mg/dL AST (15-37) IU/L ALT (14-63) IU/L Alkaline Phosphatase (46-116) U/L Total Protein (6.4-8.2) g/dL Albumin (3.4-5.0) g/dL Globulin (2.6-4.0) g/dL Albumin/Globulin Ratio (0.9-1.6) Bryce Results Last 24 Hours: Microbiology 01/17/21 12:21 Aerobic Blood Culture - Preliminary Blood - Venous - Lab Draw NO GROWTH AFTER 1 DAY Anaerobic Blood Culture - Final 01/17/21 12:17 Aerobic Blood Culture - Preliminary Blood - Venous NO GROWTH AFTER 1 DAY Anaerobic Blood Culture - Preliminary NO GROWTH AFTER 1 DAY Med Orders - Current: Current Medications Albuterol/Ipratropium (Albuterol/Ipratropium 3.0-0.5 Mg/3 Ml Neb Soln) 3 ml NEB Q4HRRT PRN PRN Reason: Shortness Of Breath/wheezing Dextrose/Water (50% Dextrose In Water 50 Ml Syringe) 50 ml IVPUSH ASDIRECTED PRN PRN Reason: Hypoglycemia Enoxaparin Sodium (Enoxaparin 40 Mg/0.4 Ml Syringe) 40 mg SUBCUT Q24H LIBIA Last Admin: 01/17/21 20:29 Dose: 40 mg Documented by: Gabapentin (Gabapentin 300 Mg Cap) 1,200 mg PO BEDTIME LIBIA Last Admin: 01/17/21 20:45 Dose: 1,200 mg Documented by: Gabapentin (Gabapentin 300 Mg Cap) 600 mg PO BID@0900,1200 [facility] Last Admin: 01/18/21 12:33 Dose: Not Given Documented by: Glucagon (Glucagon,Human Recombinant 1 Mg Vial) 1 mg IM ASDIRECTED PRN PRN Reason: Hypoglycemia Piperacillin Sod/Tazobactam (Sod 3.375 gm/ Sodium Chloride) 50 mls @ 100 mls/hr IV Q6H [facility] Last Admin: 01/18/21 14:24 Dose: 100 mls/hr Documented by: Insulin Aspart (Insulin Aspart 100 Units/Ml 3 Ml Pen) 0 unit SUBCUT TIDAC [facility]; Protocol Last Admin: 01/18/21 12:33 Dose: Not Given Documented by: Insulin Glargine (Insulin Glargine,Human Rec. Analog 100 Units/Ml 3 Ml Pen) 20 units SUBCUT BEDTIME [facility] Last Admin: 01/17/21 20:43 Dose: 20 units Documented by: Pantoprazole Sodium (Pantoprazole 40 Mg Tab.Cr) 40 mg PO ACBREAKFAST [facility] Last Admin: 01/18/21 08:44 Dose: 40 mg Documented by: Polyethylene Glycol (Polyethylene Glycol 3350 Powder 17 Gm Packet) 17 gm PO DAILY PRN PRN Reason: Constipation Sodium Chloride (Sodium Chloride 0.9% 10 Ml Syringe) 10 ml FLUSH ASDIRECTED PRN PRN Reason: Keep Vein Open Last Admin: 01/17/21 14:05 Dose: 10 ml Documented by: Sodium Chloride (Sodium Chloride 0.9% 2.5 Ml Syringe) 2.5 ml FLUSH ASDIRECTED PRN PRN Reason: Keep Vein Open Last Admin: 01/18/21 08:18 Dose: 2.5 ml Documented by: Discontinued Medications Sodium Chloride (Normal Saline) 1,000 mls @ 999 mls/hr IV .Bolus ONE Stop: 01/17/21 14:55 Last Admin: 01/17/21 14:04 Dose: 999 mls/hr Documented by: Sodium Chloride (Normal Saline) 1,000 mls @ 999 mls/hr IV .Bolus ONE Stop: 01/17/21 14:56 Last Admin: 01/17/21 14:04 Dose: 999 mls/hr Documented by: Piperacillin Sod/Tazobactam (Sod 3.375 gm/ Sodium Chloride) 50 mls @ 100 mls/hr IV ONETIME ONE Stop: 01/17/21 14:25 Last Admin: 01/17/21 14:04 Dose: 100 mls/hr Documented by: Sodium Chloride (Normal Saline) 250 mls @ 999 mls/hr IV .Bolus ONE Stop: 01/17/21 14:19 Last Admin: 01/17/21 14:06 Dose: 999 mls/hr Documented by: Iopamidol (Iopamidol 755 Mg/Ml 500 Ml Multipack Bottle) 100 ml IVPUSH ONETIME STA Stop: 01/17/21 17:10 Last Admin: 01/17/21 17:10 Dose: 100 ml Documented by: Oxycodone/Acetaminophen (Acetaminophen/Oxycodone 325-5 Mg Tab) 1 tab PO Q4H PRN PRN Reason: Pain Telmisartan (Telmisartan 40 Mg Tab) 40 mg PO ACBRK LIBIA - Exam General: Alert, Oriented, Cooperative, No Acute Distress HEENT: EOMI Neck: Supple, No JVD Lungs: Clear to Auscultation, Decreased Breath Sounds Cardiovascular: Regular Rate, Regular Rhythm, No Murmurs GI/Abdominal Exam: Normal Bowel Sounds, Soft, No Distention, Tender. No: Guarding, Rigid, Rebound Back Exam: No: CVA Tenderness (L), CVA Tenderness (R) Extremities: Pedal Edema Peripheral Pulses: 2+: Dorsalis Pedis (L), Dorsalis Pedis (R) Skin: Warm, Dry, Intact Neurological: No New Focal Deficit - Patient Data Lab Results Last 24 hrs: Laboratory Results - last 24 hr 01/17/21 01/17/21 01/17/21 Range/Units 16:20 19:32 20:42 WBC (4.0-11.0) K/uL RBC (4.50-5.90) M/uL Hgb (13.0-17.0) g/dL Hct (38.0-50.0) % MCV (80.0-98.0) fL MCH (27.0-32.0) pg MCHC (31.0-37.0) g/dL RDW Std Deviation (28.0-62.0) fl RDW Coeff of Maria Dolores (11.0-15.0) % Plt Count (150-400) K/uL MPV (7.40-12.00) fL Neut % (Auto) (48.0-80.0) % Lymph % (Auto) (16.0-40.0) % Osborne % (Auto) (0.0-15.0) % Eos % (Auto) (0.0-7.0) % Baso % (Auto) (0.0-1.5) % Neut # (Auto) (1.4-5.7) K/uL Lymph # (Auto) (0.6-2.4) K/uL Osborne # (Auto) (0.0-0.8) K/uL Eos # (Auto) (0.0-0.7) K/uL Baso # (Auto) (0.0-0.1) K/uL Nucleated RBC % /100WBC Nucleated RBCs # K/uL Sodium (136-148) mmol/L Potassium (3.5-5.1) mmol/L Chloride (98-107) mmol/L Carbon Dioxide (21.0-32.0) mmol/L BUN (7.0-18.0) mg/dL Creatinine (0.8-1.3) mg/dL Est Cr Clr Drug Dosing mL/min Estimated GFR (MDRD) ml/min Glucose (74-106) mg/dL POC Glucose 97 154 H (70-99) mg/dL Lactic Acid 2.0 (0.4-2.0) mmol/L Calcium (8.5-10.1) mg/dL Total Bilirubin (0.2-1.0) mg/dL AST (15-37) IU/L ALT (14-63) IU/L Alkaline Phosphatase (46-116) U/L Total Protein (6.4-8.2) g/dL Albumin (3.4-5.0) g/dL Globulin (2.6-4.0) g/dL Albumin/Globulin Ratio (0.9-1.6) 01/18/21 01/18/21 01/18/21 Range/Units 05:57 05:57 06:43 WBC 11.26 H (4.0-11.0) K/uL RBC 4.32 L (4.50-5.90) M/uL Hgb 12.7 L (13.0-17.0) g/dL Hct 37.4 L (38.0-50.0) % MCV 86.6 (80.0-98.0) fL MCH 29.4 (27.0-32.0) pg MCHC 34.0 (31.0-37.0) g/dL RDW Std Deviation 42.7 (28.0-62.0) fl RDW Coeff of Maria Dolores 14 (11.0-15.0) % Plt Count 266 (150-400) K/uL MPV 9.20 (7.40-12.00) fL Neut % (Auto) 70.4 (48.0-80.0) % Lymph % (Auto) 19.3 (16.0-40.0) % Osborne % (Auto) 8.3 (0.0-15.0) % Eos % (Auto) 1.4 (0.0-7.0) % Baso % (Auto) 0.6 (0.0-1.5) % Neut # (Auto) 7.9 H (1.4-5.7) K/uL Lymph # (Auto) 2.2 (0.6-2.4) K/uL Osborne # (Auto) 0.9 H (0.0-0.8) K/uL Eos # (Auto) 0.2 (0.0-0.7) K/uL Baso # (Auto) 0.1 (0.0-0.1) K/uL Nucleated RBC % 0.0 /100WBC Nucleated RBCs # 0 K/uL Sodium 134 L (136-148) mmol/L Potassium 4.4 (3.5-5.1) mmol/L Chloride 103 (98-107) mmol/L Carbon Dioxide 23.8 (21.0-32.0) mmol/L BUN 27 H (7.0-18.0) mg/dL Creatinine 1.8 H (0.8-1.3) mg/dL Est Cr Clr Drug Dosing 33.78 mL/min Estimated GFR (MDRD) 36.9 ml/min Glucose 113 H (74-106) mg/dL POC Glucose 113 H (70-99) mg/dL Lactic Acid (0.4-2.0) mmol/L Calcium 8.3 L (8.5-10.1) mg/dL Total Bilirubin 0.3 (0.2-1.0) mg/dL AST 17 (15-37) IU/L ALT 21 (14-63) IU/L Alkaline Phosphatase 109 (46-116) U/L Total Protein 6.3 L (6.4-8.2) g/dL Albumin 3.3 L (3.4-5.0) g/dL Globulin 3.0 (2.6-4.0) g/dL Albumin/Globulin Ratio 1.1 (0.9-1.6) 01/18/21 01/18/21 Range/Units 12:04 16:30 WBC (4.0-11.0) K/uL RBC (4.50-5.90) M/uL Hgb (13.0-17.0) g/dL Hct (38.0-50.0) % MCV (80.0-98.0) fL MCH (27.0-32.0) pg MCHC (31.0-37.0) g/dL RDW Std Deviation (28.0-62.0) fl RDW Coeff of Maria Dolores (11.0-15.0) % Plt Count (150-400) K/uL MPV (7.40-12.00) fL Neut % (Auto) (48.0-80.0) % Lymph % (Auto) (16.0-40.0) % Osborne % (Auto) (0.0-15.0) % Eos % (Auto) (0.0-7.0) % Baso % (Auto) (0.0-1.5) % Neut # (Auto) (1.4-5.7) K/uL Lymph # (Auto) (0.6-2.4) K/uL Osborne # (Auto) (0.0-0.8) K/uL Eos # (Auto) (0.0-0.7) K/uL Baso # (Auto) (0.0-0.1) K/uL Nucleated RBC % /100WBC Nucleated RBCs # K/uL Sodium (136-148) mmol/L Potassium (3.5-5.1) mmol/L Chloride (98-107) mmol/L Carbon Dioxide (21.0-32.0) mmol/L BUN (7.0-18.0) mg/dL Creatinine (0.8-1.3) mg/dL Est Cr Clr Drug Dosing mL/min Estimated GFR (MDRD) ml/min Glucose (74-106) mg/dL POC Glucose 122 H 191 H (70-99) mg/dL Lactic Acid (0.4-2.0) mmol/L Calcium (8.5-10.1) mg/dL Total Bilirubin (0.2-1.0) mg/dL AST (15-37) IU/L ALT (14-63) IU/L Alkaline Phosphatase (46-116) U/L Total Protein (6.4-8.2) g/dL Albumin (3.4-5.0) g/dL Globulin (2.6-4.0) g/dL Albumin/Globulin Ratio (0.9-1.6) Result Diagrams: 01/18/21 05:57 01/18/21 05:57 Bryce Results Last 24 hrs: Microbiology 01/17/21 12:21 Aerobic Blood Culture - Preliminary Blood - Venous - Lab Draw NO GROWTH AFTER 1 DAY Anaerobic Blood Culture - Final 01/17/21 12:17 Aerobic Blood Culture - Preliminary Blood - Venous NO GROWTH AFTER 1 DAY Anaerobic Blood Culture - Preliminary NO GROWTH AFTER 1 DAY Sepsis Event Note - Evaluation Sepsis Screening Result: No Definite Risk - Focused Exam Vital Signs: Vital Signs Temp Pulse Resp BP BP Pulse Ox 01/18/21 15:58 96.9 F 72 16 100/61 96 01/18/21 12:00 97.1 F 67 18 114/74 93 L 01/18/21 07:13 97.1 F 60 16 105/65 96 - Problem List & Annotations (1) Sepsis SNOMED Code(s): 06875698 Code(s): A41.9 - SEPSIS, UNSPECIFIED ORGANISM Status: Acute Current Visit: Yes (2) Chronic kidney disease SNOMED Code(s): 696210935 Code(s): N18.9 - CHRONIC KIDNEY DISEASE, UNSPECIFIED Status: Acute Current Visit: Yes (3) SIRS (systemic inflammatory response syndrome) SNOMED Code(s): 073020982 Code(s): R65.10 - SIRS OF NON-INFECTIOUS ORIGIN W/O ACUTE ORGAN DYSFUNCTION Status: Acute Current Visit: Yes - Problem List Review Problem List Initiated/Reviewed/Updated: Yes - My Orders Last 24 Hours: My Active Orders 01/17/21 18:38 Oxygen Therapy [RC] PRN Up ad Susana [RC] ASDIRECTED VTE/DVT Education [RC] PER UNIT ROUTINE Vital Signs [RC] Q4H Resuscitation Status Routine 01/17/21 18:39 Sequential Compression Device [OM.PC] Per Unit Routine 01/17/21 18:40 Antiembolic Devices [RC] PER UNIT ROUTINE 01/17/21 18:42 Blood Glucose Check, Bedside [RC] QIDACANDBED Albuterol/Ipratropium [DuoNeb 3.0-0.5 MG/3 ML] 3 ml NEB Q4HRRT PRN 01/17/21 18:43 RT Aerosol Therapy [RC] ASDIRECTED 01/17/21 18:44 Dextrose 50% in Water 50 ml IVPUSH ASDIRECTED PRN Glucagon,Human Recombinant [GlucaGen] 1 mg IM ASDIRECTED PRN 01/17/21 19:17 polyethylene glycoL 3350 [MiraLAX] 17 gm PO DAILY PRN 01/17/21 19:30 Enoxaparin [Lovenox] 40 mg SUBCUT Q24H 01/17/21 20:30 Piperacillin/Tazobactam [Piperacil-Tazobact] 3.375 gm Sodium Chloride 0.9% [Normal Saline] 50 ml IV Q6H 01/17/21 21:00 Gabapentin [Neurontin] 1,200 mg PO BEDTIME Insulin Glarg,Human.Rec.Analog [LantUS Solostar] 20 units SUBCUT BEDTIME 01/18/21 07:30 Insulin Aspart [NovoLOG] See Protocol SUBCUT TIDAC Pantoprazole [ProTONIX] 40 mg PO ACBREAKFAST 01/18/21 09:00 Gabapentin [Neurontin] 600 mg PO BID@0900,1200 01/19/21 05:11 CBC WITH AUTO DIFF [HEME] AM CMP [COMPREHENSIVE METABOLIC PN,CMP] [CHEM] AM - Plan Plan:: 75-year-old male with a history of diabetes mellitus, hypertension and CHF being admitted for SIRS. Differentials include dehydration versus viral infection versus bacterial infection. Patient is on day 2 of Zosyn. He does complain of right upper quadrant pain and ultrasound was done. We will follow up with the results. Blood cultures pending. Continue holding Lasix, spironolactone and t elmisartan. Will restart based on his fluid status. Patient denies decreased urine output, will consider restarting tamsulosin. Patient and his and daughter were informed about nodule on the lung and need for follow-up CT scan in 6 months based on risk factors.
[2021-01-18] MEDS: Enoxaparin 40 MG/0.4 ML Syringe SUBCUT SCH (18:51)
[2021-01-18] MEDS: Insulin Glargine,Human Rec. Analog 100 Units/ML 3 ML Pen SUBCUT SCH (21:07)
[2021-01-19] MEDS: Piperacillin/Tazobactam 3.375 GM in Sodium Chloride 0.9% 50 ML IV SCH ×2 (03:18→08:17)
[2021-01-19 06:55] LABS: POTASSIUM,K 4.6 mmol/L (3.5-5.1)
[2021-01-19] MEDS: Pantoprazole 40 MG Tab.CR PO SCH (07:01)
[2021-01-19] MEDS: Gabapentin 300 MG Cap PO SCH (08:17)
--- NOTE | 2021-01-19 08:21 | PCM.DCSUM1 ---
<Teresa Barrientos - Last Filed: 01/19/21 13:57> Discharge Summary - Hospital Course Free Text/Narrative:: 75-year-old male with history of CAD, HTN, CMP and diabetes mellitus presented to the ER with weakness, low blood pressure and dizziness. Patient has chronic back pain and was given [place] outpatient. Discussed constipation and patient took MiraLAX 4 times a day. After this the patient began experiencing symptoms. Home blood pressure was measured 70s/40s. Patient was admitted for SIRS. Chest x-ray showed no evidence of pneumonia. WBC 17 on admission. Bicarb 19.8. BUN 32. Creatinine 2.1. Lactic acid 3.9. Patient received IV Zosyn and 2.25 L IV fluid bolus normal saline. Head CT and neck CTA were unremarkable. EKG was unremarkable. Urinalysis were negative. Patient complained of right upper quadrant tenderness. CT chest/abdomen/pelvis showed cholelithiasis and inciden brad finding of left upper lobe 6 mm nodule in the lung. Patient received IV Zosyn. Patient's blood pressures were soft so antihypertensives were held. Differentials include dehydration versus viral infection versus bacterial. Patient's WBC count down trended and vital signs were stable. Patient's CKD appears to be since he back over the last year. Patient stable, being discharged on Augmentin. - Discharge Data Discharge Date: 01/19/21 Discharge Disposition: Home, Self-Care 01 Condition: Stable - Referral to Home Health Primary Care Physician: Breanna Love MD - Discharge Diagnosis/Problem(s) (1) Chronic kidney disease SNOMED Code(s): 079726940 ICD Code: N18.9 - CHRONIC KIDNEY DISEASE, UNSPECIFIED Status: Acute (2) SIRS (systemic inflammatory response syndrome) SNOMED Code(s): 882944965 ICD Code: R65.10 - SIRS OF NON-INFECTIOUS ORIGIN W/O ACUTE ORGAN DYSFUNCTION Status: Acute - Patient Instructions Diet: Diabetic Diet Activity: As Tolerated Notify Provider of: Fever, Increased Pain Other/Special Instructions: You are being discharged on Augmentin, and antibiotic. Please take 1 tablet every 12 hours until completed. If you experience any signs of infections including fever, chills, painful urination, cough or generalized weakness please seek medical attention. We held your blood pressure medications while you are at the hospital. Restart your home medications and please follow-up with PCP regarding dosages for Lasix, telmisartan and spironolactone. Check your blood pressure at least twice a day. If you find it is low or you experience dizziness, headaches, confusion, rapid heartbeat (palpitations), fever, chills or severe abdominal pain, please seek medical attention. - Discharge Plan *PRESCRIPTION DRUG MONITORING PROGRAM REVIEWED*: Not Applicable *COPY OF PRESCRIPTION DRUG MONITORING REPORT IN PATIENT DAVID: Not Applicable Prescriptions/Med Rec: Amoxicillin/Potassium Clav [Augmentin 875-125 Tablet] 1 each PO Q12HR 5 Days #10 tablet Home Medications: Home Meds Telmisartan 40 mg PO DAILY 10/24/13 [History] Furosemide 40 mg PO DAILY 04/26/17 [History] Lansoprazole [Prevacid] 30 mg PO BID PRN 04/26/17 [History] Potassium Chloride 10 meq PO DAILY 04/26/17 [History] metFORMIN HCl [Metformin ER Osmotic] 1,000 mg PO QPM 04/30/17 [History] Aspirin 81 mg PO DAILY 02/28/20 [History] Gabapentin [Neurontin] 4 tab PO BEDTIME 02/28/20 [History] Gabapentin [Neurontin] 600 mg PO 02/28/20 [History] Insulin Glarg,Human.Rec.Analog [Lantus] 22 units SQ BEDTIME 02/28/20 [History] Tamsulosin [Flomax] 0.4 mg PO BEDTIME 02/28/20 [History] Semaglutide [Ozempic] 1 mg SUBCUT WEEKLY 01/17/21 [History] Spironolactone [Aldactone] 25 mg PO DAILY 01/17/21 [History] metFORMIN [Glucophage] 500 mg PO DAILY 01/17/21 [History] Amoxicillin/Potassium Clav [Augmentin 875-125 Tablet] 1 each PO Q12HR 5 Days #10 tablet 01/19/21 [Rx] Gabapentin [Neurontin] 1,200 mg PO BEDTIME 01/19/21 [History] Saxagliptin HCl [Onglyza] 5 mg PO DAILY 01/19/21 [History] Patient Handouts: Type 2 Diabetes Mellitus, Diagnosis, Adult, Amoxicillin; Clavulanic Acid Tablets, Sepsis, Diagnosis, Adult Referrals: Breanna Love MD [Primary Care Provider] - (Dr. Love's nurse will contact you for the appointment date and time. ) - Discharge Summary/Plan Comment DC Time >30 min.: Yes - General Info Date of Service: 01/19/21 Admission Dx/Problem (Free Text: Admission Diagnosis/Problem Admission Diagnosis/Problem Altered mental status - Review of Systems General: Reports: No Symptoms. Denies: Fever HEENT: Reports: No Symptoms Pulmonary: Denies: Shortness of Breath, Cough Cardiovascular: Denies: Chest Pain, Palpitations, Edema Gastrointestinal: Denies: Abdominal Pain, Diarrhea, Vomiting Genitourinary: Denies: Dysuria, Frequency, Burning Musculoskeletal: Reports: Back Pain Skin: Reports: No Symptoms Neurological: Reports: No Symptoms - Patient Data Vitals - Most Recent: Last Vital Signs Temp 97.5 F 01/19/21 03:22 Pulse 65 01/19/21 03:22 Resp 16 01/19/21 03:22 BP 111/68 01/19/21 03:22 Pulse Ox 94 L 01/19/21 03:22 Weight - Most Recent: 129 kg I&O - Last 24 hours: Intake & Output 01/18/21 01/19/21 01/19/21 22:59 06:59 14:59 Intake Total 1400 650 Output Total 1300 850 Balance 100 -200 Lab Results - Last 24 hrs: Laboratory Results - last 24 hr 01/18/21 01/18/21 01/18/21 Range/Units 12:04 16:30 21:08 WBC (4.0-11.0) K/uL RBC (4.50-5.90) M/uL Hgb (13.0-17.0) g/dL Hct (38.0-50.0) % MCV (80.0-98.0) fL MCH (27.0-32.0) pg MCHC (31.0-37.0) g/dL RDW Std Deviation (28.0-62.0) fl RDW Coeff of Maria Dolores (11.0-15.0) % Plt Count (150-400) K/uL MPV (7.40-12.00) fL Neut % (Auto) (48.0-80.0) % Lymph % (Auto) (16.0-40.0) % [place] % (Auto) (0.0-15.0) % Eos % (Auto) (0.0-7.0) % Baso % (Auto) (0.0-1.5) % Neut # (Auto) (1.4-5.7) K/uL Lymph # (Auto) (0.6-2.4) K/uL [place] # (Auto) (0.0-0.8) K/uL Eos # (Auto) (0.0-0.7) K/uL Baso # (Auto) (0.0-0.1) K/uL Nucleated RBC % /100WBC Nucleated RBCs # K/uL Sodium (136-148) mmol/L Potassium (3.5-5.1) mmol/L Chloride (98-107) mmol/L Carbon Dioxide (21.0-32.0) mmol/L BUN (7.0-18.0) mg/dL Creatinine (0.8-1.3) mg/dL Est Cr Clr Drug Dosing mL/min Estimated GFR (MDRD) ml/min Glucose (74-106) mg/dL POC Glucose 122 H 191 H 151 H (70-99) mg/dL Calcium (8.5-10.1) mg/dL Total Bilirubin (0.2-1.0) mg/dL AST (15-37) IU/L ALT (14-63) IU/L Alkaline Phosphatase (46-116) U/L Total Protein (6.4-8.2) g/dL Albumin (3.4-5.0) g/dL Globulin (2.6-4.0) g/dL Albumin/Globulin Ratio (0.9-1.6) 01/19/21 01/19/21 01/19/21 Range/Units 06:16 06:16 06:23 WBC 10.74 (4.0-11.0) K/uL RBC 4.37 L (4.50-5.90) M/uL Hgb 12.8 L (13.0-17.0) g/dL Hct 37.7 L (38.0-50.0) % MCV 86.3 (80.0-98.0) fL MCH 29.3 (27.0-32.0) pg MCHC 34.0 (31.0-37.0) g/dL RDW Std Deviation 42.2 (28.0-62.0) fl RDW Coeff of Maria Dolores 13 (11.0-15.0) % Plt Count 262 (150-400) K/uL MPV 9.30 (7.40-12.00) fL Neut % (Auto) 67.4 (48.0-80.0) % Lymph % (Auto) 21.5 (16.0-40.0) % [place] % (Auto) 9.0 (0.0-15.0) % Eos % (Auto) 1.5 (0.0-7.0) % Baso % (Auto) 0.6 (0.0-1.5) % Neut # (Auto) 7.2 H (1.4-5.7) K/uL Lymph # (Auto) 2.3 (0.6-2.4) K/uL [place] # (Auto) 1.0 H (0.0-0.8) K/uL Eos # (Auto) 0.2 (0.0-0.7) K/uL Baso # (Auto) 0.1 (0.0-0.1) K/uL Nucleated RBC % 0.0 /100WBC Nucleated RBCs # 0 K/uL Sodium 136 (136-148) mmol/L Potassium 4.6 (3.5-5.1) mmol/L Chloride 102 (98-107) mmol/L Carbon Dioxide 25.0 (21.0-32.0) mmol/L BUN 26 H (7.0-18.0) mg/dL Creatinine 1.7 H (0.8-1.3) mg/dL Est Cr Clr Drug Dosing 35.76 mL/min Estimated GFR (MDRD) 39.4 ml/min Glucose 110 H (74-106) mg/dL POC Glucose 113 H (70-99) mg/dL Calcium 8.5 (8.5-10.1) mg/dL Total Bilirubin 0.4 (0.2-1.0) mg/dL AST 15 (15-37) IU/L ALT 21 (14-63) IU/L Alkaline Phosphatase 99 (46-116) U/L Total Protein 6.6 (6.4-8.2) g/dL Albumin 3.5 (3.4-5.0) g/dL Globulin 3.1 (2.6-4.0) g/dL Albumin/Globulin Ratio 1.1 (0.9-1.6) EUFEMIA Results - Last 24 hrs: Microbiology 01/17/21 12:21 Aerobic Blood Culture - Preliminary Blood - Venous - Lab Draw NO GROWTH AFTER 1 DAY Anaerobic Blood Culture - Final 01/17/21 12:17 Aerobic Blood Culture - Preliminary Blood - Venous NO GROWTH AFTER 1 DAY Anaerobic Blood Culture - Preliminary NO GROWTH AFTER 1 DAY Med Orders - Current: Current Medications Albuterol/Ipratropium (Albuterol/Ipratropium 3.0-0.5 Mg/3 Ml Neb Soln) 3 ml NEB Q4HRRT PRN PRN Reason: Shortness Of Breath/wheezing Dextrose/Water (50% Dextrose In Water 50 Ml Syringe) 50 ml IVPUSH ASDIRECTED PRN PRN Reason: Hypoglycemia Enoxaparin Sodium (Enoxaparin 40 Mg/0.4 Ml Syringe) 40 mg SUBCUT Q24H [facility] Last Admin: 01/18/21 18:51 Dose: 40 mg Documented by: Gabapentin (Gabapentin 300 Mg Cap) 1,200 mg PO BEDTIME [facility] Last Admin: 01/18/21 21:06 Dose: 1,200 mg Documented by: Gabapentin (Gabapentin 300 Mg Cap) 600 mg PO BID@0900,1200 [facility] Last Admin: 01/19/21 08:17 Dose: 600 mg Documented by: Glucagon (Glucagon,Human Recombinant 1 Mg Vial) 1 mg IM ASDIRECTED PRN PRN Reason: Hypoglycemia Piperacillin Sod/Tazobactam (Sod 3.375 gm/ Sodium Chloride) 50 mls @ 100 mls/hr IV Q6H [facility] Last Admin: 01/19/21 03:18 Dose: 100 mls/hr Documented by: Insulin Aspart (Insulin Aspart 100 Units/Ml 3 Ml Pen) 0 unit SUBCUT TIDAC [facility]; Protocol Last Admin: 01/18/21 17:14 Dose: Not Given Documented by: Insulin Glargine (Insulin Glargine,Human Rec. Analog 100 Units/Ml 3 Ml Pen) 20 units SUBCUT BEDTIME [facility] Last Admin: 01/18/21 21:07 Dose: 20 units Documented by: Pantoprazole Sodium (Pantoprazole 40 Mg Tab.Cr) 40 mg PO ACBREAKFAST [facility] Last Admin: 01/19/21 07:01 Dose: 40 mg Documented by: Polyethylene Glycol (Polyethylene Glycol 3350 Powder 17 Gm Packet) 17 gm PO DAILY PRN PRN Reason: Constipation Sodium Chloride (Sodium Chloride 0.9% 10 Ml Syringe) 10 ml FLUSH ASDIRECTED PRN PRN Reason: Keep Vein Open Last Admin: 01/17/21 14:05 Dose: 10 ml Documented by: Sodium Chloride (Sodium Chloride 0.9% 2.5 Ml Syringe) 2.5 ml FLUSH ASDIRECTED PRN PRN Reason: Keep Vein Open Last Admin: 01/18/21 08:18 Dose: 2.5 ml Documented by: Discontinued Medications Sodium Chloride (Normal Saline) 1,000 mls @ 999 mls/hr IV .Bolus ONE Stop: 01/17/21 14:55 Last Admin: 01/17/21 14:04 Dose: 999 mls/hr Documented by: Sodium Chloride (Normal Saline) 1,000 mls @ 999 mls/hr IV .Bolus ONE Stop: 01/17/21 14:56 Last Admin: 01/17/21 14:04 Dose: 999 mls/hr Documented by: Piperacillin Sod/Tazobactam (Sod 3.375 gm/ Sodium Chloride) 50 mls @ 100 mls/hr IV ONETIME ONE Stop: 01/17/21 14:25 Last Admin: 01/17/21 14:04 Dose: 100 mls/hr Documented by: Sodium Chloride (Normal Saline) 250 mls @ 999 mls/hr IV .Bolus ONE Stop: 01/17/21 14:19 Last Admin: 01/17/21 14:06 Dose: 999 mls/hr Documented by: Iopamidol (Iopamidol 755 Mg/Ml 500 Ml Multipack Bottle) 100 ml IVPUSH ONETIME STA Stop: 01/17/21 17:10 Last Admin: 01/17/21 17:10 Dose: 100 ml Documented by: Oxycodone/Acetaminophen (Acetaminophen/Oxycodone 325-5 Mg Tab) 1 tab PO Q4H PRN PRN Reason: Pain Telmisartan (Telmisartan 40 Mg Tab) 40 mg PO ACBRK [facility] - Exam General: Reports: Alert, Oriented, Cooperative HEENT: Reports: EOMI Neck: Reports: Supple, No JVD Lungs: Reports: Clear to Auscultation Cardiovascular: Reports: Regular Rate, Regular Rhythm, No Murmurs GI/Abdominal Exam: Normal Bowel Sounds, Soft, Non-Tender Back Exam: Denies: CVA Tenderness (L), CVA Tenderness (R) Extremities: Normal Inspection, No Pedal Edema. No: Fabiola's Sign, Leg Pain Skin: Reports: Warm, Dry, Intact Neurological: Reports: No New Focal Deficit <Gennaro Pulido - Last Filed: 01/20/21 14:43> Discharge Summary - Hospital Course Free Text/Narrative:: I have seen and evaluated the patient and agree with the residents note unless specified in my note - Referral to Home Health Primary Care Physician: Breanna Love MD - Patient Data Vitals - Most Recent: Last Vital Signs Temp 36.4 C 01/19/21 08:27 Pulse 68 01/19/21 08:27 Resp 16 01/19/21 08:27 BP 129/71 01/19/21 08:27 Pulse Ox 95 01/19/21 08:27 EUFEMIA Results - Last 24 hrs: Microbiology 01/17/21 12:21 Aerobic Blood Culture - Preliminary Blood - Venous - Lab Draw NO GROWTH AFTER 3 DAYS Anaerobic Blood Culture - Final 01/17/21 12:17 Aerobic Blood Culture - Preliminary Blood - Venous NO GROWTH AFTER 3 DAYS Anaerobic Blood Culture - Preliminary NO GROWTH AFTER 3 DAYS Med Orders - Current: Current Medications Discontinued Medications Albuterol/Ipratropium (Albuterol/Ipratropium 3.0-0.5 Mg/3 Ml Neb Soln) 3 ml NEB Q4HRRT PRN PRN Reason: Shortness Of Breath/wheezing Dextrose/Water (50% Dextrose In Water 50 Ml Syringe) 50 ml IVPUSH ASDIRECTED PRN PRN Reason: Hypoglycemia Enoxaparin Sodium (Enoxaparin 40 Mg/0.4 Ml Syringe) 40 mg SUBCUT Q24H [facility] Last Admin: 01/18/21 18:51 Dose: 40 mg Documented by: Gabapentin (Gabapentin 300 Mg Cap) 1,200 mg PO BEDTIME [facility] Last Admin: 01/18/21 21:06 Dose: 1,200 mg Documented by: Gabapentin (Gabapentin 300 Mg Cap) 600 mg PO BID@0900,1200 [facility] Last Admin: 01/19/21 08:17 Dose: 600 mg Documented by: Glucagon (Glucagon,Human Recombinant 1 Mg Vial) 1 mg IM ASDIRECTED PRN PRN Reason: Hypoglycemia Sodium Chloride (Normal Saline) 1,000 mls @ 999 mls/hr IV .Bolus ONE Stop: 01/17/21 14:55 Last Admin: 01/17/21 14:04 Dose: 999 mls/hr Documented by: Sodium Chloride (Normal Saline) 1,000 mls @ 999 mls/hr IV .Bolus ONE Stop: 01/17/21 14:56 Last Admin: 01/17/21 14:04 Dose: 999 mls/hr Documented by: Piperacillin Sod/Tazobactam (Sod 3.375 gm/ Sodium Chloride) 50 mls @ 100 mls/hr IV ONETIME ONE Stop: 01/17/21 14:25 Last Admin: 01/17/21 14:04 Dose: 100 mls/hr Documented by: Sodium Chloride (Normal Saline) 250 mls @ 999 mls/hr IV .Bolus ONE Stop: 01/17/21 14:19 Last Admin: 01/17/21 14:06 Dose: 999 mls/hr Documented by: Piperacillin Sod/Tazobactam (Sod 3.375 gm/ Sodium Chloride) 50 mls @ 100 mls/hr IV Q6H [facility] Last Admin: 01/19/21 08:17 Dose: 100 mls/hr Documented by: Insulin Aspart (Insulin Aspart 100 Units/Ml 3 Ml Pen) 0 unit SUBCUT TIDAC [facility]; Protocol Last Admin: 01/18/21 17:14 Dose: Not Given Documented by: Insulin Glargine (Insulin Glargine,Human Rec. Analog 100 Units/Ml 3 Ml Pen) 20 units SUBCUT BEDTIME [facility] Last Admin: 01/18/21 21:07 Dose: 20 units Documented by: Iopamidol (Iopamidol 755 Mg/Ml 500 Ml Multipack Bottle) 100 ml IVPUSH ONETIME STA Stop: 01/17/21 17:10 Last Admin: 01/17/21 17:10 Dose: 100 ml Documented by: Oxycodone/Acetaminophen (Acetaminophen/Oxycodone 325-5 Mg Tab) 1 tab PO Q4H PRN PRN Reason: Pain Pantoprazole Sodium (Pantoprazole 40 Mg Tab.Cr) 40 mg PO ACBREAKFAST [facility] Last Admin: 01/19/21 07:01 Dose: 40 mg Documented by: Polyethylene Glycol (Polyethylene Glycol 3350 Powder 17 Gm Packet) 17 gm PO DAILY PRN PRN Reason: Constipation Sodium Chloride (Sodium Chloride 0.9% 10 Ml Syringe) 10 ml FLUSH ASDIRECTED PRN PRN Reason: Keep Vein Open Last Admin: 01/17/21 14:05 Dose: 10 ml Documented by: Sodium Chloride (Sodium Chloride 0.9% 2.5 Ml Syringe) 2.5 ml FLUSH ASDIRECTED PRN PRN Reason: Keep Vein Open Last Admin: 01/18/21 08:18 Dose: 2.5 ml Documented by: Telmisartan (Telmisartan 40 Mg Tab) 40 mg PO ACBRK [facility]
== END 2021-01-19 09:05 | disposition home or self-care (01) | DRG 872 ==
LOC: MW.ED 12:11 → MW.MS 17:10
PROVIDERS: ADMIT Internal Medicine; ATTEND Internal Medicine
DX: E87.2 Acidosis (principal); A41.9 Sepsis, unspecified organism; H91.93 Unspecified hearing loss, bilateral; I42.9 Cardiomyopathy, unspecified; I13.0 Hypertensive heart and chronic kidney disease with heart failure and stage 1 through stage 4 chronic kidney disease, or unspecified chronic kidney disease; Z68.41 Body mass index [BMI] 40.0-44.9, adult; H54.7 Unspecified visual loss; N18.9 Chronic kidney disease, unspecified; I25.10 Atherosclerotic heart disease of native coronary artery without angina pectoris; E11.22 Type 2 diabetes mellitus with diabetic chronic kidney disease; K59.00 Constipation, unspecified; G89.29 Other chronic pain; F03.90 Unspecified dementia, unspecified severity, without behavioral disturbance, psychotic disturbance, mood disturbance, and anxiety; E11.9 Type 2 diabetes mellitus without complications; E66.9 Obesity, unspecified; M54.9 Dorsalgia, unspecified; I11.0 Hypertensive heart disease with heart failure; E66.01 Morbid (severe) obesity due to excess calories; N40.0 Benign prostatic hyperplasia without lower urinary tract symptoms; J30.9 Allergic rhinitis, unspecified; E78.00 Pure hypercholesterolemia, unspecified; G47.30 Sleep apnea, unspecified; K21.9 Gastro-esophageal reflux disease without esophagitis; M19.90 Unspecified osteoarthritis, unspecified site; G20 Parkinson's disease; F02.80 Dementia in other diseases classified elsewhere, unspecified severity, without behavioral disturbance, psychotic disturbance, mood disturbance, and anxiety; Z96.642 Presence of left artificial hip joint; Z96.653 Presence of artificial knee joint, bilateral; Z79.82 Long term (current) use of aspirin; Z79.899 Other long term (current) drug therapy; Z86.73 Personal history of transient ischemic attack (TIA), and cerebral infarction without residual deficits; Z86.16 Personal history of COVID-19; Z98.890 Other specified postprocedural states; Z97.4 Presence of external hearing-aid; Z99.81 Dependence on supplemental oxygen; Z98.49 Cataract extraction status, unspecified eye; Z98.84 Bariatric surgery status; I50.9 Heart failure, unspecified; Z79.4 Long term (current) use of insulin
CPT/HCPCS: 36415; 70450; 70496; 70498; 71045; 80053; 81003; 83605 ×2; 83735; 83880; 84443; 84484; 85025; 85610; 85730; 87040 ×2; 93005; J2543; J7030 ×3; 71250; 71250-26; 74176; 74176-26; 76700; 76700-26; 82947; 96365; 99285-25; A9270-GY; J1650; J1815-GY; Q9967

== ENCOUNTER 2021-03-25 22:49 | Emergency (ER) | payer MEDICARE, OTHER ==
[2021-03-25] MEDS ORDERED: Sodium Chloride 0.9% 2.5 ML Syringe FLUSH PRN (23:06)
[2021-03-25] MEDS ORDERED: Sodium Chloride 0.9% 10 ML Syringe FLUSH PRN (23:06)
[2021-03-25] MEDS ORDERED: Acetaminophen 500 MG Tab PO ONE (23:48)
--- NOTE | 2021-03-25 23:49 | EDM.PDOC ---
ED HPI GENERAL MEDICAL PROBLEM - General Chief Complaint: Neurological Problem Stated Complaint: FATIGUE Time Seen by Provider: 03/25/21 23:12 Source of Information: Reports: Patient History Limitations: Reports: No Limitations - History of Present Illness INITIAL COMMENTS - FREE TEXT/NARRATIVE: 75-year-old male with history of DM 2, CKD, CHF, PRANAY on CPAP, CAD presents with confusion and right hip pain. Family called stating that he has been acting confused and weak for 1 day. He is status post right hip replacement at [facility] in [place] 2 days ago (sunday morning) by Dr. Sarwat Ricketts. He was discharged on . On Sunday he was walking and his legs gave out. His notes that he has been urinating less over the past day. He takes Oxy 5mg and is also on Eliquis. He admits to pain to his right hip but denies falls, fever, headache, nausea, vomiting, diarrhea, chest pain, shortness of breath but admits to right hip pain, dysuria and generalized malaise. He did have a barillas postoperatively. ROS: A 10-point review of systems, other than pertinent positives and negatives as stated per HPI, is otherwise negative Past medical history: No additional pertinent history Past Surgical history: No additional pertinent history Social history: No additional pertinent history Family history: No additional pertinent history PHYSICAL EXAM General: AOx4, GCS = 15, mild distress HEENT: dry mucous membrane Neck: supple, no meningismus, no Kernig or Brudzinski Cardiac: S1S2 RRR Respiratory: CTAB, no crackles or rales, no wheezing Abdomen: Soft, nontender, no rebound or guarding, nondistended, no pulsatile mass. Back: nontender Musculoskeletal: NVI distally, no deformity, right hip incision site tender to palpation with induration. Pain with right hip ROM. Neuro: No focal deficits, CN 2 - 12 WNL. Right Hip Pain Score (Numeric/FACES): 3 - Related Data Allergies Allergy/AdvReac Type Severity Reaction Status Date / Time No Known Allergies Allergy Verified 01/17/21 20:29 Home Meds: Home Meds Telmisartan 40 mg PO DAILY 10/24/13 [History] Furosemide 40 mg PO DAILY 04/26/17 [History] Lansoprazole [Prevacid] 30 mg PO BID PRN 04/26/17 [History] Potassium Chloride 10 meq PO DAILY 04/26/17 [History] metFORMIN HCl [Metformin ER Osmotic] 1,000 mg PO QPM 04/30/17 [History] Aspirin 81 mg PO DAILY 02/28/20 [History] Gabapentin [Neurontin] 4 tab PO BEDTIME 02/28/20 [History] Gabapentin [Neurontin] 600 mg PO 02/28/20 [History] Insulin Glarg,Human.Rec.Analog [Lantus] 22 units SQ BEDTIME 02/28/20 [History] Tamsulosin [Flomax] 0.4 mg PO BEDTIME 02/28/20 [History] Semaglutide [Ozempic] 1 mg SUBCUT WEEKLY 01/17/21 [History] Spironolactone [Aldactone] 25 mg PO DAILY 01/17/21 [History] metFORMIN [Glucophage] 500 mg PO DAILY 01/17/21 [History] Amoxicillin/Potassium Clav [Augmentin 875-125 Tablet] 1 each PO Q12HR 5 Days #10 tablet 01/19/21 [Rx] Gabapentin [Neurontin] 1,200 mg PO BEDTIME 01/19/21 [History] Saxagliptin HCl [Onglyza] 5 mg PO DAILY 01/19/21 [History] Past Medical History HEENT History: Reports: Allergic Rhinitis, Impaired Vision, Other (See Below) Other HEENT History: wears glasses, maria c hearing aids Cardiovascular History: Reports: CAD, Cardiomyopathy, High Cholesterol, Hypertension Respiratory History: Reports: Sleep Apnea Other Respiratory History: uses CPAP Gastrointestinal History: Reports: GERD Genitourinary History: Reports: BPH Musculoskeletal History: Reports: Arthritis Neurological History: Reports: Parkinson's Psychiatric History: Reports: Dementia Endocrine/Metabolic History: Reports: Diabetes, Type II, Obesity/BMI 30+ Hematologic History: Reports: None Immunologic History: Reports: None Oncologic (Cancer) History: Reports: None Dermatologic History: Reports: None - Infectious Disease History Infectious Disease History: Reports: Chicken Pox, Shingles - Past Surgical History Head Surgeries/Procedures: Reports: None HEENT Surgical History: Reports: Cataract Surgery Cardiovascular Surgical History: Reports: Other (See Below) Other Cardiovascular Surgeries/Procedures: angiogram (no stents) GI Surgical History: Reports: Bariatric Procedure, Colonoscopy Other GI Surgeries/Procedures: lap band surgery, removal of lap band Neurological Surgical History: Reports: Lumbar Spine Other Neurological Surgeries/Procedures: hx lower back surgery Musculoskeletal Surgical History: Reports: Knee Replacement, Other (See Below) Other Musculoskeletal Surgeries/Procedures:: bilateral TKA, Left Hip replacment Social & Family History - Family History Family Medical History: Unobtainable - Tobacco Use Tobacco Use Status *Q: Never Tobacco User - Caffeine Use Caffeine Use: Reports: Coffee, Soda - Recreational Drug Use Recreational Drug Use: No - Living Situation & Occupation Living situation: Reports: Occupation: Retired ED ROS GENERAL - Review of Systems Review Of Systems: See Below (see dictation) ED EXAM, GENERAL - Physical Exam Exam: See Below (see dictation) Course - Vital Signs Last Recorded V/S: Last Vital Signs Temp 98.9 F 03/26/21 00:41 Pulse 77 03/26/21 09:09 Resp 18 03/26/21 09:09 BP 122/69 03/26/21 09:09 Pulse Ox 93 L 03/26/21 09:09 - Orders/Labs/Meds Orders: Active Orders 24 hr Category Date Time Status CULTURE BLOOD [BC] Stat Lab 03/26/21 03:00 Received CULTURE BLOOD [BC] Stat Lab 03/26/21 03:10 Received Blood Culture x2 Reflex Set [OM.PC] Stat Oth 03/26/21 03:01 Ordered Labs: Laboratory Tests 03/25/21 03/25/21 03/25/21 Range/Units 23:44 23:44 23:44 WBC 15.53 H (4.0-11.0) K/uL RBC 3.58 L (4.50-5.90) M/uL Hgb 10.6 L (13.0-17.0) g/dL Hct 31.0 L (38.0-50.0) % MCV 86.6 (80.0-98.0) fL MCH 29.6 (27.0-32.0) pg MCHC 34.2 (31.0-37.0) g/dL RDW Std Deviation 43.4 (28.0-62.0) fl RDW Coeff of Maria Dolores 14 (11.0-15.0) % Plt Count 243 (150-400) K/uL MPV 9.60 (7.40-12.00) fL Neut % (Auto) 80.5 H (48.0-80.0) % Lymph % (Auto) 8.7 L (16.0-40.0) % [place] % (Auto) 10.0 (0.0-15.0) % Eos % (Auto) 0.5 (0.0-7.0) % Baso % (Auto) 0.3 (0.0-1.5) % Neut # (Auto) 12.5 H (1.4-5.7) K/uL Lymph # (Auto) 1.4 (0.6-2.4) K/uL [place] # (Auto) 1.6 H (0.0-0.8) K/uL Eos # (Auto) 0.1 (0.0-0.7) K/uL Baso # (Auto) 0.1 (0.0-0.1) K/uL Nucleated RBC % 0.0 /100WBC Nucleated RBCs # 0 K/uL ESR (0-19) mm/hr INR Sodium 131 L (136-148) mmol/L Potassium 4.6 (3.5-5.1) mmol/L Chloride 98 (98-107) mmol/L Carbon Dioxide 23.0 (21.0-32.0) mmol/L BUN 27 H (7.0-18.0) mg/dL Creatinine 1.7 H (0.8-1.3) mg/dL Est Cr Clr Drug Dosing 35.76 mL/min Estimated GFR (MDRD) 39.4 ml/min Glucose 220 H (74-106) mg/dL Lactic Acid 1.4 (0.4-2.0) mmol/L Calcium 7.6 L (8.5-10.1) mg/dL Total Bilirubin 0.5 (0.2-1.0) mg/dL AST 60 H (15-37) IU/L ALT 16 (14-63) IU/L Alkaline Phosphatase 98 (46-116) U/L C-Reactive Protein (0.00-0.90) mg/dL Total Protein 6.0 L (6.4-8.2) g/dL Albumin 2.8 L (3.4-5.0) g/dL Globulin 3.2 (2.6-4.0) g/dL Albumin/Globulin Ratio 0.9 (0.9-1.6) Urine Color Urine Appearance Urine pH (5.0-8.0) Ur Specific [place] (1.001-1.035) Urine Protein (NEGATIVE) mg/dL Urine Glucose (UA) (NEGATIVE) mg/dL Urine Ketones (NEGATIVE) mg/dL Urine Occult Blood (NEGATIVE) Urine Nitrite (NEGATIVE) Urine Bilirubin (NEGATIVE) Urine Urobilinogen (<2.0) EU/dL Ur Leukocyte Esterase (NEGATIVE) Urine RBC (0-2/HPF) Urine WBC (0-5/HPF) Ur Epithelial Cells (NONE-FEW) Urine Bacteria (NEGATIVE) SARS-CoV-2 RNA (LUIS) (NEGATIVE) 03/25/21 03/25/21 03/25/21 Range/Units 23:44 23:44 23:44 WBC (4.0-11.0) K/uL RBC (4.50-5.90) M/uL Hgb (13.0-17.0) g/dL Hct (38.0-50.0) % MCV (80.0-98.0) fL MCH (27.0-32.0) pg MCHC (31.0-37.0) g/dL RDW Std Deviation (28.0-62.0) fl RDW Coeff of Maria Doolres (11.0-15.0) % Plt Count (150-400) K/uL MPV (7.40-12.00) fL Neut % (Auto) (48.0-80.0) % Lymph % (Auto) (16.0-40.0) % [place] % (Auto) (0.0-15.0) % Eos % (Auto) (0.0-7.0) % Baso % (Auto) (0.0-1.5) % Neut # (Auto) (1.4-5.7) K/uL Lymph # (Auto) (0.6-2.4) K/uL [place] # (Auto) (0.0-0.8) K/uL Eos # (Auto) (0.0-0.7) K/uL Baso # (Auto) (0.0-0.1) K/uL Nucleated RBC % /100WBC Nucleated RBCs # K/uL ESR 62 H (0-19) mm/hr INR 0.98 Sodium (136-148) mmol/L Potassium (3.5-5.1) mmol/L Chloride (98-107) mmol/L Carbon Dioxide (21.0-32.0) mmol/L BUN (7.0-18.0) mg/dL Creatinine (0.8-1.3) mg/dL Est Cr Clr Drug Dosing mL/min Estimated GFR (MDRD) ml/min Glucose (74-106) mg/dL Lactic Acid (0.4-2.0) mmol/L Calcium (8.5-10.1) mg/dL Total Bilirubin (0.2-1.0) mg/dL AST (15-37) IU/L ALT (14-63) IU/L Alkaline Phosphatase (46-116) U/L C-Reactive Protein 24.70 H (0.00-0.90) mg/dL Total Protein (6.4-8.2) g/dL Albumin (3.4-5.0) g/dL Globulin (2.6-4.0) g/dL Albumin/Globulin Ratio (0.9-1.6) Urine Color Urine Appearance Urine pH (5.0-8.0) Ur Specific [place] (1.001-1.035) Urine Protein (NEGATIVE) mg/dL Urine Glucose (UA) (NEGATIVE) mg/dL Urine Ketones (NEGATIVE) mg/dL Urine Occult Blood (NEGATIVE) Urine Nitrite (NEGATIVE) Urine Bilirubin (NEGATIVE) Urine Urobilinogen (<2.0) EU/dL Ur Leukocyte Esterase (NEGATIVE) Urine RBC (0-2/HPF) Urine WBC (0-5/HPF) Ur Epithelial Cells (NONE-FEW) Urine Bacteria (NEGATIVE) SARS-CoV-2 RNA (LUIS) (NEGATIVE) 03/25/21 03/26/21 Range/Units 23:51 01:00 WBC (4.0-11.0) K/uL RBC (4.50-5.90) M/uL Hgb (13.0-17.0) g/dL Hct (38.0-50.0) % MCV (80.0-98.0) fL MCH (27.0-32.0) pg MCHC (31.0-37.0) g/dL RDW Std Deviation (28.0-62.0) fl RDW Coeff of Maria Dolores (11.0-15.0) % Plt Count (150-400) K/uL MPV (7.40-12.00) fL Neut % (Auto) (48.0-80.0) % Lymph % (Auto) (16.0-40.0) % [place] % (Auto) (0.0-15.0) % Eos % (Auto) (0.0-7.0) % Baso % (Auto) (0.0-1.5) % Neut # (Auto) (1.4-5.7) K/uL Lymph # (Auto) (0.6-2.4) K/uL [place] # (Auto) (0.0-0.8) K/uL Eos # (Auto) (0.0-0.7) K/uL Baso # (Auto) (0.0-0.1) K/uL Nucleated RBC % /100WBC Nucleated RBCs # K/uL ESR (0-19) mm/hr INR Sodium (136-148) mmol/L Potassium (3.5-5.1) mmol/L Chloride (98-107) mmol/L Carbon Dioxide (21.0-32.0) mmol/L BUN (7.0-18.0) mg/dL Creatinine (0.8-1.3) mg/dL Est Cr Clr Drug Dosing mL/min Estimated GFR (MDRD) ml/min Glucose (74-106) mg/dL Lactic Acid (0.4-2.0) mmol/L Calcium (8.5-10.1) mg/dL Total Bilirubin (0.2-1.0) mg/dL AST (15-37) IU/L ALT (14-63) IU/L Alkaline Phosphatase (46-116) U/L C-Reactive Protein (0.00-0.90) mg/dL Total Protein (6.4-8.2) g/dL Albumin (3.4-5.0) g/dL Globulin (2.6-4.0) g/dL Albumin/Globulin Ratio (0.9-1.6) Urine Color YELLOW Urine Appearance CLEAR Urine pH 6.0 (5.0-8.0) Ur Specific [place] 1.020 (1.001-1.035) Urine Protein NEGATIVE (NEGATIVE) mg/dL Urine Glucose (UA) NEGATIVE (NEGATIVE) mg/dL Urine Ketones NEGATIVE (NEGATIVE) mg/dL Urine Occult Blood TRACE-INTACT H (NEGATIVE) Urine Nitrite NEGATIVE (NEGATIVE) Urine Bilirubin NEGATIVE (NEGATIVE) Urine Urobilinogen 0.2 (<2.0) EU/dL Ur Leukocyte Esterase NEGATIVE (NEGATIVE) Urine RBC 1-3 (0-2/HPF) Urine WBC 0-1 (0-5/HPF) Ur Epithelial Cells RARE (NONE-FEW) Urine Bacteria RARE (NEGATIVE) SARS-CoV-2 RNA (LUIS) NEGATIVE (NEGATIVE) Meds: Medications Discontinued Medications Generic Name Dose Route Start Last Admin Trade Name Freq PRN Reason Stop Dose Admin Acetaminophen 1,000 mg 03/25/21 23:48 03/26/21 00:11 Acetaminophen 500 Mg Tab PO 03/25/21 23:49 1,000 mg ONETIME ONE Administration Piperacillin Sod/Tazobactam 100 mls @ 100 mls/hr 03/26/21 04:41 03/26/21 04:54 Sod 4.5 gm/ Sodium Chloride IV 03/26/21 05:40 100 mls/hr ONETIME ONE Administration Morphine Sulfate 4 mg 03/26/21 04:35 03/26/21 04:40 Morphine 4 Mg/Ml Syringe IVPUSH 03/26/21 04:36 4 mg ONETIME ONE Administration Morphine Sulfate 4 mg 03/26/21 07:21 03/26/21 07:31 Morphine 4 Mg/Ml Syringe IVPUSH 03/26/21 07:22 4 mg ONETIME ONE Administration Sodium Chloride 10 ml 03/25/21 23:06 03/26/21 00:10 Sodium Chloride 0.9% 10 Ml Syringe FLUSH 10 ml ASDIRECTED PRN Administration Keep Vein Open Sodium Chloride 2.5 ml 03/25/21 23:06 03/26/21 00:11 Sodium Chloride 0.9% 2.5 Ml Syringe FLUSH 2.5 ml ASDIRECTED PRN Administration Keep Vein Open Vancomycin HCl 2,000 mg 03/26/21 04:41 03/26/21 06:01 Vancomycin 500 Mg Sdv IV 03/26/21 04:42 2,000 mg STAT STA Administration - Re-Assessments/Exams Free Text/Narrative Re-Assessment/Exam: 03/26/21 04:[address] Sarwat Ricketts' cell phone and left a voicemail. 03/26/21 06:09 Patient will require transfer to outside facility for the need of higher level of care not available at this facility, and the need for orthopedic sap ppm consultant services unavailable at this facility. Any emergency conditions have been stabilized to the ability of the ED prior to the transfer. Case was discussed and accepted by Dr. Rivers (ortho) at [facility]. Departure - Departure Time of Disposition: 06:10 Disposition: DC/Tfer to Acute Hospital 02 Condition: Fair Clinical Impression: CKD (chronic kidney disease), Sepsis, Right hip pain, Status post right hip replacement - Discharge Information *PRESCRIPTION DRUG MONITORING PROGRAM REVIEWED*: Not Applicable *COPY OF PRESCRIPTION DRUG MONITORING REPORT IN PATIENT DAVID: Not Applicable Referrals: Eulogio Vallejo [Primary Care Provider] - Forms: ED Department Discharge - My Orders Last 24 Hours: My Active Orders 03/26/21 03:00 CULTURE BLOOD [BC] Stat 03/26/21 03:01 Blood Culture x2 Reflex Set [OM.PC] Stat 03/26/21 03:10 CULTURE BLOOD [BC] Stat - Assessment/Plan Last 24 Hours: My Active Orders 03/26/21 03:00 CULTURE BLOOD [BC] Stat 03/26/21 03:01 Blood Culture x2 Reflex Set [OM.PC] Stat 03/26/21 03:10 CULTURE BLOOD [BC] Stat
--- NOTE | 2021-03-25 23:52 | CT ---
INDICATION: Transient alteration of awareness TECHNIQUE: CT Head without i.v. contrast. Coronal and sagittal reformats were obtained. COMPARISON: 01/17/2021 FINDINGS: CSF space: Unremarkable for age. Brain: No evidence of mass, acute infarction or hemorrhage is seen. No mass-effect or midline shift is seen. Mild diffuse cortical atrophy is noted. The brain parenchyma is otherwise normal in appearance with preservation of the patel-white matter junction. Calvarium: The visualized paranasal sinuses are well aerated. The mastoid air cells are clear. The visualized orbits are grossly unremarkable. The patient is status post prior bilateral cataract removal. The calvarium is unremarkable in appearance with no fractures identified. IMPRESSION: 1. No evidence of acute infarction, intracranial hemorrhage, or mass-effect seen. Please note that all CT scans at this facility use dose modulation, iterative reconstruction, and/or weight-based dosing when appropriate to reduce radiation dose to as low as reasonably achievable. Dictated by: Praful Bradford MD @ 03/25/2021 23:51:33 (Electronically Signed)
[2021-03-26 00:39] LABS: POTASSIUM,K 4.6 mmol/L (3.5-5.1)
--- NOTE | 2021-03-26 00:42 | CR ---
HISTORY: Altered mental status. COMPARISON: 01/17/2021. FINDINGS: A portable erect AP view of the chest was obtained at 00 02 hours. The lungs remain clear. No focal or diffuse infiltrates are present. The heart remains normal in size. The mediastinum is normal in appearance. The osseous structures are normal in appearance for the patient`s age. IMPRESSION: Normal portable chest single view. Dictated by Barrett Chong MD @ 03/26/2021 12:40:45 AM (Electronically Signed)
[2021-03-26] MEDS ORDERED: Morphine 4 MG/ML Syringe IVPUSH ONE ×2 (04:35→07:21)
[2021-03-26] MEDS ORDERED: Vancomycin 500 MG SDV IV STA (04:41)
[2021-03-26] MEDS ORDERED: Piperacillin/Tazobactam 4.5 GM in Sodium Chloride 0.9% 100 ML IV ONE (04:41)
== END 2021-03-26 09:45 ==
LOC: MW.ED 22:49
DX: A41.9 Sepsis, unspecified organism (principal); M25.551 Pain in right hip; E11.22 Type 2 diabetes mellitus with diabetic chronic kidney disease; I11.0 Hypertensive heart disease with heart failure; N18.9 Chronic kidney disease, unspecified; I50.9 Heart failure, unspecified; E66.9 Obesity, unspecified; K21.9 Gastro-esophageal reflux disease without esophagitis; Z68.41 Body mass index [BMI] 40.0-44.9, adult; Z79.4 Long term (current) use of insulin; Z79.899 Other long term (current) drug therapy; Z79.82 Long term (current) use of aspirin; Z20.822 Contact with and (suspected) exposure to COVID-19; Z96.651 Presence of right artificial knee joint
CPT/HCPCS: 36415; 70450; 71045; 80053; 81001; 83605; 85025; 85610; 85652; 86140; 87040; 96365; 96366; 96367; 96375; 96376; 99285; A9270; J2270; J2543; J3370; U0002

== ENCOUNTER 2022-12-05 07:13 | Day surgery (SDC) | payer MEDICARE, OTHER ==
[~2022-12-05 07:13] MED LIST: Lactated Ringers 1,000 ML IV SCH; Sodium Chloride 0.9% 10 ML Syringe FLUSH PRN; Sodium Chloride 0.9% 2.5 ML Syringe FLUSH PRN; Sodium Chloride 0.9% 20 ML SDV IV PRN
[2022-12-05] MEDS ORDERED: Propofol 200 MG/20 ML SDV ONE ×2 (07:59→10:01)
[2022-12-05] MEDS ORDERED: fentaNYL 100 MCG/2 ML SDV ONE (09:17)
[2022-12-05] MEDS ORDERED: Lidocaine 2% 5 ML SDV ONE (09:17)
[2022-12-05] MEDS ORDERED: ePHEDrine 50 MG/ML SDV ONE (09:48)
== END 2022-12-05 10:45 | disposition home or self-care (01) ==
LOC: MW.SDS 07:13
PROVIDERS: ATTEND Surgery
DX: Z12.11 Encounter for screening for malignant neoplasm of colon (principal); D12.2 Benign neoplasm of ascending colon; D12.4 Benign neoplasm of descending colon; D12.5 Benign neoplasm of sigmoid colon; D12.3 Benign neoplasm of transverse colon; K57.30 Diverticulosis of large intestine without perforation or abscess without bleeding; M19.90 Unspecified osteoarthritis, unspecified site; I25.10 Atherosclerotic heart disease of native coronary artery without angina pectoris; I10 Essential (primary) hypertension; K21.9 Gastro-esophageal reflux disease without esophagitis; E11.9 Type 2 diabetes mellitus without complications; G47.33 Obstructive sleep apnea (adult) (pediatric); E66.01 Morbid (severe) obesity due to excess calories; E78.00 Pure hypercholesterolemia, unspecified; Z80.0 Family history of malignant neoplasm of digestive organs; Z86.010 Personal history of colon polyps; Z79.899 Other long term (current) drug therapy; Z79.82 Long term (current) use of aspirin; Z79.4 Long term (current) use of insulin; Z98.890 Other specified postprocedural states; Z87.891 Personal history of nicotine dependence; Z68.42 Body mass index [BMI] 45.0-49.9, adult; Z90.49 Acquired absence of other specified parts of digestive tract
CPT/HCPCS: 45380; 45385; 82947; J2704; J3010; J7120; 00811; 99100; J3490

== ENCOUNTER 2023-11-22 06:33 | Day surgery (SDC) | payer MEDICARE, OTHER ==
[~2023-11-22 06:33] MED LIST changes: -Lactated Ringers 1,000 ML IV SCH
[2023-11-22] MEDS: Lactated Ringers 1,000 ML IV SCH (07:10)
[2023-11-22] MEDS ORDERED: propofoL 50 ML ONE (07:24)
[2023-11-22] MEDS ORDERED: Water For Injection, Sterile 20 ML ONE (07:24)
[2023-11-22] MEDS ORDERED: Magnesium Sulfate (4.06 MEQ/ML) 5 GM/10 ML SDV ONE (08:11)
[2023-11-22] MEDS ORDERED: Phenylephrine HCl In 0.9% NaCl 1 MG/10 ML Syringe ONE (08:11)
== END 2023-11-22 09:15 | disposition home or self-care (01) ==
LOC: MW.SDS 06:33
PROVIDERS: ATTEND Surgery
DX: Z12.11 Encounter for screening for malignant neoplasm of colon (principal); D12.5 Benign neoplasm of sigmoid colon; K57.30 Diverticulosis of large intestine without perforation or abscess without bleeding; Z86.010 Personal history of colon polyps; K21.9 Gastro-esophageal reflux disease without esophagitis; I10 Essential (primary) hypertension; E11.9 Type 2 diabetes mellitus without complications; G20.A1 Parkinson's disease without dyskinesia, without mention of fluctuations; I25.10 Atherosclerotic heart disease of native coronary artery without angina pectoris; Z87.891 Personal history of nicotine dependence; Z79.82 Long term (current) use of aspirin; Z79.4 Long term (current) use of insulin; Z79.85 Long-term (current) use of injectable non-insulin antidiabetic drugs; Z79.899 Other long term (current) drug therapy
CPT/HCPCS: 45380; 82947; 88305; J2371; J2704; J3475; J7120; 00811; 99100; J3490

== ENCOUNTER 2024-07-23 13:42 | Observation (INO) | payer MEDICARE, OTHER ==
[2024-07-23] MEDS ORDERED: Sodium Chloride 0.9% 10 ML Syringe FLUSH PRN (14:08)
[2024-07-23] MEDS ORDERED: Sodium Chloride 0.9% 2.5 ML Syringe FLUSH PRN (14:08)
[2024-07-23 14:18] LABS: BASOPHILS ABSOLUTE AUTO 0.09 K/uL (0.00-0.20); BASOPHILS PERCENT AUTO 0.8 % (0.0-1.0); EOSINOPHILS ABSOLUTE AUTO 0.16 K/uL (0.00-0.45); EOSINOPHILS PERCENT AUTO 1.3 % (0.0-6.0); HEMATOCRIT 36.3 % (42.0-52.0); HEMOGLOBIN 12.2 g/dL (14.0-18.0); IMMATURE GRAN ABSOLUTE AUTO 0.09 K/uL (0.00-0.05); IMMATURE GRAN PERCENT AUTO 0.8 % (0.0-0.4); LYMPHOCYTES ABSOLUTE AUTO 1.65 K/uL (1.00-4.80); LYMPHOCYTES PERCENT AUTO 13.9 % (24.0-44.0); MEAN CORPUSCULAR HEMOGLOBIN 29.2 pg (28.0-32.0); MEAN CORPUSCULAR HGB CONC 33.6 g/dL (32.0-36.0); MEAN CORPUSCULAR VOLUME 86.8 fL (83.0-99.0); MEAN PLATELET VOLUME 9.2 fL (9.4-12.4); MONOCYTES ABSOLUTE AUTO 0.61 K/uL (0.00-0.80); MONOCYTES PERCENT AUTO 5.1 % (0.0-8.0); NEUTROPHILS ABSOLUTE AUTO 9.26 K/uL (1.80-7.70); NEUTROPHILS PERCENT AUTO 78.1 % (41.0-71.0); PLATELET COUNT,PLT 281 K/uL (150-400); RED BLOOD CELL COUNT 4.18 M/uL (4.52-5.90); WHITE BLOOD CELL COUNT,WBC 11.86 K/uL (3.9-11.3)
[2024-07-23] MEDS: Lactated Ringers 1,000 ML IV ONE (14:25)
[2024-07-23 14:34] LABS: INR 1.08 (0.86-1.11)
[2024-07-23 14:46] LABS: ALBUMIN 3.3 g/dL (3.4-5.0); BILIRUBIN TOTAL 0.5 mg/dL (0.2-1.0); CALCIUM 8.7 mg/dL (8.5-10.1); CARBON DIOXIDE,CO2 21.8 mmol/L (21.0-32.0); CREATININE 2.6 mg/dL (0.8-1.3); EST CRCL DRUG DOSING (CG) 21.54 mL/min; POTASSIUM,K 4.2 mmol/L (3.5-5.1); PROTEIN TOTAL,TP 6.7 g/dL (6.4-8.2)
[2024-07-23 15:01] LABS: TSH ULTRASENSITIVE 0.75 uIU/mL (0.36-3.74)
[2024-07-23 15:32] LABS: LACTIC ACID 1.7 mmol/L (0.4-2.0)
[2024-07-23] MEDS ORDERED: Acetaminophen 325 MG Tab PO PRN (19:28)
[2024-07-23] MEDS ORDERED: Albuterol/Ipratropium 3.0-0.5 MG/3 ML Neb Soln NEB PRN (19:28)
[2024-07-23] MEDS ORDERED: Ondansetron 4 MG Tab.DIS PO PRN (19:28)
[2024-07-23] MEDS ORDERED: Melatonin 3 MG Tab PO PRN (19:28)
[2024-07-23] MEDS ORDERED: Metoclopramide 5 MG Tab PO PRN (19:28)
[2024-07-23] MEDS ORDERED: Sodium Chloride 0.9% 1,000 ML IV SCH (19:30)
[2024-07-23] MEDS: Enoxaparin 40 MG/0.4 ML Syringe SUBCUT SCH (20:40)
[2024-07-23] MEDS: Polyethylene Glycol 3350 Powder 17 GM Packet PO SCH (20:40)
[2024-07-23] MEDS: Sodium Chloride 0.9% 1,000 ML IV SCH (21:29)
[2024-07-23] MEDS: Sennosides/Docusate Sodium 50-8.6 MG Tab PO SCH (21:29)
[2024-07-24 06:10] LABS: EOSINOPHILS ABSOLUTE AUTO 0.24 K/uL (0.00-0.45); EOSINOPHILS PERCENT AUTO 2.5 % (0.0-6.0); HEMATOCRIT 34.9 % (42.0-52.0); HEMOGLOBIN 11.6 g/dL (14.0-18.0); IMMATURE GRAN ABSOLUTE AUTO 0.08 K/uL (0.00-0.05); IMMATURE GRAN PERCENT AUTO 0.8 % (0.0-0.4); LYMPHOCYTES ABSOLUTE AUTO 1.62 K/uL (1.00-4.80); LYMPHOCYTES PERCENT AUTO 16.8 % (24.0-44.0); MEAN CORPUSCULAR HEMOGLOBIN 29.2 pg (28.0-32.0); MEAN CORPUSCULAR HGB CONC 33.2 g/dL (32.0-36.0); MEAN CORPUSCULAR VOLUME 87.9 fL (83.0-99.0); MEAN PLATELET VOLUME 9.3 fL (9.4-12.4); MONOCYTES ABSOLUTE AUTO 0.63 K/uL (0.00-0.80); MONOCYTES PERCENT AUTO 6.5 % (0.0-8.0); NEUTROPHILS ABSOLUTE AUTO 6.98 K/uL (1.80-7.70); NEUTROPHILS PERCENT AUTO 72.4 % (41.0-71.0); PLATELET COUNT,PLT 258 K/uL (150-400); RED BLOOD CELL COUNT 3.97 M/uL (4.52-5.90); WHITE BLOOD CELL COUNT,WBC 9.65 K/uL (3.9-11.3)
[2024-07-24 06:42] LABS: A/G RATIO 0.9 (0.9-1.6); ALBUMIN 3.1 g/dL (3.4-5.0); BILIRUBIN TOTAL 0.4 mg/dL (0.2-1.0); CALCIUM 8.7 mg/dL (8.5-10.1); CARBON DIOXIDE,CO2 22.8 mmol/L (21.0-32.0); CREATININE 2.2 mg/dL (0.8-1.3); EST CRCL DRUG DOSING (CG) 25.46 mL/min; POTASSIUM,K 4.4 mmol/L (3.5-5.1); PROTEIN TOTAL,TP 6.4 g/dL (6.4-8.2)
[2024-07-24] MEDS ORDERED: Glucagon,Human Recombinant 1 MG Vial IM PRN (07:19)
[2024-07-24] MEDS ORDERED: 50% Dextrose in Water 50 ML Syringe IVPUSH PRN (07:19)
[2024-07-24] MEDS: Fenofibrate,Micronized 67 MG Cap PO SCH (09:36)
[2024-07-24] MEDS: Empagliflozin 25 MG Tab PO SCH (09:38)
[2024-07-24] MEDS: Pantoprazole 40 MG Tab.CR PO SCH (09:38)
[2024-07-24] MEDS: Gabapentin 300 MG Cap PO SCH ×2 (09:38→20:36)
[2024-07-24] MEDS: Sodium Chloride 0.9% 1,000 ML IV ONE (09:45)
[2024-07-24] MEDS: Insulin Aspart 100 Units/ML 3 ML Pen SUBCUT SCH (12:08)
[2024-07-24 15:21] LABS: CALCIUM 8.2 mg/dL (8.5-10.1); POTASSIUM,K 4.6 mmol/L (3.5-5.1)
[2024-07-24 15:59] LABS: HEMOGLOBIN A1C 7.9 %
[2024-07-24] MEDS: Sodium Ferric Gluconate Cmplex 125 MG in Sodium Chloride 0.9% 100 ML IV ONE (16:52)
[2024-07-24] MEDS: Tamsulosin 0.4 MG Cap.ER PO SCH (20:35)
[2024-07-25 06:50] LABS: BASOPHILS ABSOLUTE AUTO 0.09 K/uL (0.00-0.20); BASOPHILS PERCENT AUTO 1.1 % (0.0-1.0); EOSINOPHILS ABSOLUTE AUTO 0.19 K/uL (0.00-0.45); EOSINOPHILS PERCENT AUTO 2.4 % (0.0-6.0); HEMATOCRIT 35.2 % (42.0-52.0); HEMOGLOBIN 11.8 g/dL (14.0-18.0); IMMATURE GRAN ABSOLUTE AUTO 0.07 K/uL (0.00-0.05); IMMATURE GRAN PERCENT AUTO 0.9 % (0.0-0.4); LYMPHOCYTES ABSOLUTE AUTO 1.62 K/uL (1.00-4.80); LYMPHOCYTES PERCENT AUTO 20.3 % (24.0-44.0); MEAN CORPUSCULAR HEMOGLOBIN 29.6 pg (28.0-32.0); MEAN CORPUSCULAR HGB CONC 33.5 g/dL (32.0-36.0); MEAN CORPUSCULAR VOLUME 88.2 fL (83.0-99.0); MEAN PLATELET VOLUME 9.3 fL (9.4-12.4); MONOCYTES ABSOLUTE AUTO 0.53 K/uL (0.00-0.80); MONOCYTES PERCENT AUTO 6.6 % (0.0-8.0); NEUTROPHILS PERCENT AUTO 68.7 % (41.0-71.0); PLATELET COUNT,PLT 243 K/uL (150-400); RED BLOOD CELL COUNT 3.99 M/uL (4.52-5.90)
[2024-07-25 07:18] LABS: A/G RATIO 0.9 (0.9-1.6); BILIRUBIN TOTAL 0.4 mg/dL (0.2-1.0); CALCIUM 8.6 mg/dL (8.5-10.1); CARBON DIOXIDE,CO2 18.8 mmol/L (21.0-32.0); CREATININE 1.8 mg/dL (0.8-1.3); EST CRCL DRUG DOSING (CG) 31.11 mL/min; POTASSIUM,K 4.3 mmol/L (3.5-5.1); PROTEIN TOTAL,TP 6.3 g/dL (6.4-8.2)
== END 2024-07-25 13:55 | disposition home or self-care (01) ==
LOC: MW.ED 13:42 → MW.MS 19:05
PROVIDERS: ADMIT Family Medicine; ATTEND Family Medicine
DX: N17.9 Acute kidney failure, unspecified (principal); I10 Essential (primary) hypertension; E11.9 Type 2 diabetes mellitus without complications; I25.10 Atherosclerotic heart disease of native coronary artery without angina pectoris; K21.9 Gastro-esophageal reflux disease without esophagitis; E78.00 Pure hypercholesterolemia, unspecified; N40.0 Benign prostatic hyperplasia without lower urinary tract symptoms; G20.A1 Parkinson's disease without dyskinesia, without mention of fluctuations; Z79.4 Long term (current) use of insulin; Z79.899 Other long term (current) drug therapy
CPT/HCPCS: 36415; 71045; 74176; 80048; 80053; 80061; 82947; 83036; 83540; 83605; 83690; 83880; 84443; 84484; 85025; 85379; 85610; 86850; 86900; 86901; 87040; 87428; 93005; 93246; 93306; 96361; 96372; 96374; 99285; A9270; G0378; J1650; J1815; J2916; J7030; J7120; 93010; 96360; 99284